=== PATIENT | male | born 1950 | race Caucasian/White ===

== ENCOUNTER → 2018-08-19 16:00 | Outpatient (CLI) | payer OTHER, SELFPAY ==
[2018-08-19 17:15] LABS: PSA,Total - Annual Screen 1.74 ng/mL (0.00-4.00)
== END ==
PROVIDERS: Family Provider Family Medicine; PCP Family Medicine; Referring Provider Urology; Visit Provider Urology
DX: Z12.5 Encounter for screening for malignant neoplasm of prostate (principal)
CPT/HCPCS: 36415; 84153; G0103

== ENCOUNTER → 2018-08-19 19:42 | Outpatient (CLI) | payer OTHER, SELFPAY ==
--- NOTE | 2018-08-19 | CYSPIN_PTH ---
PATIENT: ANGELA RODRIGUES LOC: [facility] U#:[id number] AGE/SX: 75/M ROOM: RE08/19/[address]: Dr. Juan Shultz MD : 1950 BED: DIS: SPEC #: [id number] RECD: 08/20/18 10:53 STATUS: ELIDA RERichardson #: [id number] VALENTIN: 08/19/18 00:[address]: Juan Shultz DEPT: CYTOLOGY RECD BY: Lars Knott ENTERED: 08/20/18 10:54 SP TYPE: CYSPIN FL OTHR DR: Dr. Bereket Morel MD Tissues: Urine Procedures: Pap Stain (control) Special Stain Group II Cytospin Fluid HEADER OPERATION: Not noted PRE-OP DIAGNOSIS: Bladder cancer TISSUE SUBMITTED: Urine for cytology DIAGNOSIS CYTOLOGY Urine for cytology (cytospin): Negative for malignant cells. Acute inflammation. SJ:cruz 08/21/18 COMMENT Clinical correlation and appropriate follow up are necessary. CYTOLOGY STUDY Slides are reviewed. CYTOLOGY GROSS Received is 80 ml of yellow clear fluid labeled with the patient's name and and designated per the requisition as urine. Submitted for cytology preparation. 08/20/18 TC:2 CPT: 06517
[2018-08-19 19:45] LABS: Cytology, Body Fluid / CSF SEE PATHOLOGY REPORT
== END ==
PROVIDERS: Family Provider Family Medicine; PCP Family Medicine; Referring Provider Urology; Visit Provider Urology
DX: C67.9 Malignant neoplasm of bladder, unspecified (principal)
CPT/HCPCS: 88108; 88313

== ENCOUNTER → 2019-02-10 | Outpatient (CLI) | payer OTHER, SELFPAY ==
--- NOTE | 2019-02-10 09:09 | RAD_ITS ---
STUDY: X-RAY - LUMBOSACRAL SPINE REASON FOR EXAM: Male, 69 years old. Lots of pain in lower back radiating down into the left leg off and on for years. Currently getting worse. TECHNIQUE: 7 view(s) of the lumbosacral spine were obtained. COMPARISON: April 12, 2010. FINDINGS: Normal lumbar lordosis. There is no substantial scoliosis. No lysis is identified on bilateral oblique projections. There is minimal diffuse spondylosis, most prominently involving L5. There is moderate to severe L5-S1 degenerative disc disease. There is no change of osseous alignment during flexion or extension versus neutral. Multifocal calcified plaque outlines the abdominal aorta without delineation of an aneurysm. Normal visualized soft tissue structures. RAD/L/S Spine Comp/w Bending Views IMPRESSION: No plain film evident acute osseous abnormality. No lysis. No listhesis. No substantial scoliosis. In fact, normal alignment. Spondylosis and degenerative disc disease as above. No alignment change during flexion or extension versus neutral. Atherosclerotic peripheral vascular disease. Electronically Signed: Pablito Singh MD at 14:51 EDT , Service support ,
== END | disposition home or self-care (01) ==
LOC: MTRAD 08:53
PROVIDERS: Family Provider Family Medicine; PCP Family Medicine
DX: M54.5 Low back pain (principal)
CPT/HCPCS: 72114

== ENCOUNTER → 2019-03-13 | Outpatient (CLI) | payer OTHER, SELFPAY ==
--- NOTE | 2019-03-13 15:21 | MRI_ITS ---
STUDY: MRI LUMBAR SPINE WITHOUT CONTRAST REASON FOR EXAM: Male, 69 years old. Radiculopathy. Leg pain. TECHNIQUE: Standardized fat and water weighted pulse sequences were obtained in the sagittal and axial planes. COMPARISON: X-ray dated February 10, 2019. FINDINGS: Lumbar lordosis preserved. No significant scoliosis. Conus medullaris terminates normally at the L1-2 level. T11-12: Mild/moderate endplate spondylosis with Modic changes. T12-L1: Normal endplates. Normal disc height, hydration and morphology. Normal bilateral facet joints. Normal central canal and bilateral lateral recesses. Normal bilateral intervertebral neural foramina. L1-2: Normal endplates. Desiccation. Normal bilateral facet joints. Normal central canal and bilateral lateral recesses. Normal bilateral intervertebral neural foramina. L2-3: Normal endplates. Disc bulge without central canal narrowing. Facet joint arthrosis. Normal central canal and bilateral lateral recesses. Normal bilateral intervertebral neural foramina. L3-4: Normal endplates. Disc bulge with mild central narrowing. Facet joint arthrosis. Normal bilateral lateral recesses. Neural foraminal narrowing without impingement. Posterior epidural fat contributes to central canal narrowing. L4-5: Normal endplates. Disc bulge with mild central canal narrowing. Facet joint arthrosis. Normal bilateral lateral recesses. Neural foraminal narrowing without impingement. Posterior perineural fat contributes to central canal narrowing. L5-S1: Moderate endplate spondylosis with Modic changes. Shallow disc bulge/osteophyte complex without central canal narrowing. Facet joint arthrosis. Normal central canal and bilateral lateral recesses. Neural foraminal narrowing with early nerve root contact. Sacrum intact. No acute fracture line. No dislocation. No cortical destruction. Mild paraspinal muscle atrophy. Normal aorta. Normal retroperitoneum. MRI/Spine Lumbar (Routine) IMPRESSION: Multilevel intervertebral disc disease with mild central narrowing at L3-4 and L4-5 Multilevel neural femoral narrowing with early contact of the L5 exiting nerve roots Multilevel facet joint arthrosis Endplate spondylosis at T11-12 and L5-S1 Electronically Signed: Bereket Reeves DO at 8:17 EDT Tel , Service support ,
== END | disposition home or self-care (01) ==
LOC: MRI 15:14
PROVIDERS: Family Provider Family Medicine; PCP Family Medicine
DX: M47.27 Other spondylosis with radiculopathy, lumbosacral region (principal)
CPT/HCPCS: 72148

== ENCOUNTER → 2019-06-02 | Outpatient (CLI) | payer OTHER, SELFPAY ==
--- NOTE | 2019-06-02 17:17 | RAD_ITS ---
STUDY: X-RAY CHEST REASON FOR EXAM: Male, 69 years old. Hypertension TECHNIQUE: PA and lateral COMPARISON: None. FINDINGS: Lungs are mildly hyperinflated but clear.. There is no demonstrated pleural abnormality. Normal size heart. Normal mediastinum and tien. Normal visualized pulmonary arteries. Mildly calcified aortic arch and descending thoracic aorta. Dorsal spine demonstrates moderate spondylosis Normal visualized ribs, clavicles, and shoulders. There is no demonstrated abnormality of the visualized soft tissue structures of the upper abdomen. RAD/Chest PA and Lateral IMPRESSION: COPD. No acute disease Electronically Signed: Vito Yousif MD at 22:01 EDT , Service support ,
== END | disposition home or self-care (01) ==
LOC: MTRAD 17:15
PROVIDERS: Family Provider Family Medicine; PCP Family Medicine; Referring Provider Nurse Practitioner Family; Visit Provider Nurse Practitioner Family
DX: Z01.818 Encounter for other preprocedural examination (principal)
CPT/HCPCS: 71046

== ENCOUNTER → 2019-06-03 | Outpatient (CLI) | payer OTHER, SELFPAY ==
[2019-06-03 12:26] LABS: Absolute Lymphocyte Count 2.51 X10^3/uL (0.83-4.51); Absolute Neutrophil Count 3.3 X10^3/uL (2.0-7.7); Basophil# 0.08 X10^3/uL; Basophil% 1.2 % (0-1); Eosinophil# 0.14 X10^3/uL; Eosinophils% 2.2 % (0-5); Hematocrit 44.2 % (40-54); Hemoglobin 14.6 g/dL (13.0-16.5); Lymphocyte # 2.51 X10^3/ul (4.0); Lymphocyte % 38.9 % (19-41); Mean Corpuscular Hgb 29.4 pg (27.0-32.0); Mean Corpuscular Volume 88.9 fL (80-94); Mean Platelet Vol. 10.8 fl (6.2-12.0); Monocyte# 0.43 X10^3/uL; Monocyte% 6.7 % (0-10); NRBC Flagged by Analyzer 0 % (0-5); Neutrophil # 3.27 X10^3/uL (2.7-7.7); Neutrophil % 50.7 % (47-70); Platelet Count 288 K/mm3 (150-450); RBC Distribution Width CV 12.9 % (11.6-14.6); RBC Distribution Width SD 41.9 fl (35.1-43.9); Red Blood Count 4.97 M/mm3 (4.6-6.2); White Blood Count 6.5 K/mm3 (4.4-11.0)
[2019-06-03 12:30] LABS: Prothrombin Time (Protime)PT. 13.2 SECONDS (11.7-14.9)
[2019-06-03 12:31] LABS: Partial Thromboplast Time 32.1 Seconds (24.1-36.2)
[2019-06-03 12:44] LABS: ALB/GLOB Ratio 0.8 RATIO (0.9-2.4); AST(SGOT) 19 U/L (15-37); Alanine Aminotransfer ALT/SGPT 26 U/L (16-61); Albumin, Serum 3.7 g/dL (3.2-5.0); Alkaline Phosphatase 62 U/L (45-117); Anion Gap 6 (5-15); BUN 17 mg/dL (7-18); BUN/Creat Ratio 16.8 RATIO (10-20); Calcium,Total 9.3 mg/dL (8.5-10.1); Chloride 103 mmol/L (98-107); Creatinine, Serum 1.01 mg/dL (0.70-1.30); EST Glomerular Filtration Rate 78 mL/min (>60); Est Glom Filt Rate - Afr Amer 95 mL/min (>60); Globulin 4.6 g/dL (2.2-4.2); Glucose 104 mg/dL (74-106); Potassium 3.8 mmol/L (3.5-5.1); Protein, Total 8.3 g/dL (6.4-8.2); Sodium Level 136 mmol/L (136-145)
== END | disposition home or self-care (01) ==
LOC: MTLAB 09:47
PROVIDERS: Family Provider Family Medicine; PCP Family Medicine; Referring Provider Nurse Practitioner Family; Visit Provider Nurse Practitioner Family
DX: Z01.818 Encounter for other preprocedural examination (principal)
CPT/HCPCS: 36415; 80053; 85025; 85610; 85730; 87077; 87081

== ENCOUNTER 2019-06-18 05:18 | Emergency (ER) | payer OTHER, SELFPAY ==
[2019-06-18 05:19] VITALS: BP 113/103; PULSE 62; RESP 18; TEMP 36.6; O2SAT 96; BMI 30.4
[2019-06-18 05:28] VITALS: BP 113/103; PULSE 62; RESP 18; TEMP 36.6; O2SAT 96
[2019-06-18 05:37] VITALS: BP 141/78; PULSE 65; O2SAT 97
--- NOTE | 2019-06-18 05:37 | ED.RN ---
pt unable to get undressed as he needs his t-shirt stay inbetween his surgical incision and his waist band. t-shirt doesn't have any logos or sparkly gems.
--- NOTE | 2019-06-18 05:41 | RAD_ITS ---
STUDY: X-RAY CHEST REASON FOR EXAM: Male, 69 years old. Chills, recent lumbar discectomy on . TECHNIQUE: Single AP portable view of the chest. COMPARISON: 06/02/2019 FINDINGS: There are areas of hyperinflation. There is no focal parenchymal abnormality. There is no demonstrated pleural abnormality. Normal size heart. Normal mediastinum and tien. Normal visualized pulmonary arteries. Normal visualized aortic arch and descending thoracic aorta. There are diffuse degenerative changes of the visualized thoracic spine. Normal visualized ribs, clavicles, and shoulders. There is no demonstrated abnormality of the visualized soft tissue structures of the upper abdomen. RAD/Chest 1 View (Portable) IMPRESSION: Component of COPD. No pulmonary edema, congestive heart failure or confluent pneumonia. Electronically Signed: Cheyenne Ross MD at 6:18 EDT , Service support ,
--- NOTE | 2019-06-18 05:42 | ED.DCSUM_ITS ---
History of Present Illness Chief Complaint: Fever Narrative: Patient is a 69-year-old male who presents with fever and chills and low body temperature this morning. 5 days ago he had a discectomy which was done at [place]. Yesterday he had a fever of 100.6. This morning his noted that he was sweating and his shirt was soaked. She checked his temperature and it was 95.5. Patient complains of dysuria which she attributes to his recent surgery. He denies chest pain, shortness of breath, cough, congestion, rashes. His pain from surgery is well controlled. He is not been needing to take any pain medication since Sunday evening. He denies any redness or drainage from the wound. Past Medical History - Allergies and Home Meds Allergies/Adverse Reactions: Allergies Corticosteroids (Glucocorticoids) Allergy (Verified 06/18/19 05:21) Other FLUSHING, ELEVATED BLOOD PRESSURE oxycodone HCl [From Percocet] Allergy (Verified 06/18/19 05:21) Other HALLUCINATIONS prednisone Allergy (Verified 06/18/19 05:21) Other FLUSHING, ELEVATED BLOOD PRESSURE thimerosal Allergy (Verified 06/18/19 05:21) Other MUSCLE ACHES azithromycin Adverse Reaction (Verified 06/18/19 05:21) Other B.M. ISSUES chlorhexidine Adverse Reaction (Verified 06/18/19 05:21) SKIN FELT LIKE IT WAS BURNING clindamycin Adverse Reaction (Verified 06/18/19 05:21) Other SEVERE STOMACH CRAMPS, BACK PAIN codeine Adverse Reaction (Verified 06/18/19 05:21) Other IMPAIRED MEMORY erythromycin base [Erythromycin Base] Adverse Reaction (Verified 06/18/19 05:21) Other SEVERE STOMACH CRAMPS gabapentin [From Neurontin] Adverse Reaction (Verified 06/18/19 05:21) Other INTESTINAL CRAMPS naproxen Adverse Reaction (Verified 06/18/19 05:21) Other UPSET STOMACH, HEART BURN, EAR RINGING sulfamethoxazole [From Septra] Adverse Reaction (Verified 06/18/19 05:21) Other STOMACH CRAMPS trimethoprim [From Septra] Adverse Reaction (Verified 06/18/19 05:21) Other STOMACH CRAMPS Primary Care Physician: Bereket Morel MD [Primary Care Provider] - Past Medical History: - - Hypertension Surgical History: - - Discectomy Smoking Status: Former smoker Review of Systems All systems negative except as indicated General: Reports: Chills, Fever, Sweats Cardiovascular: Denies: Chest pain Respiratory: Denies: Dyspnea, Cough Gastrointestinal: Denies: Abdominal pain, Nausea, Vomiting, Diarrhea Genitourinary: Reports: Dysuria Physical Exam Vital Signs/Narrative: Vital Signs Temp Pulse Resp BP Pulse Ox 06/18/19 05:37 65 141/78 H 97 06/18/19 05:28 97.8 F 62 18 113/103 H 96 06/18/19 05:19 97.8 F 62 18 113/103 H 96 General: Well nourished Head: Normocephalic Eyes: EOMI ENT: Moist mucous membranes Neck: Supple Cardiovascular: Regular rate, Regular rhythm Respiratory: No distress, CTA bilaterally Abdomen: Soft, Nontender Back: - - Back incision clean dry and intact no erythema no drainage Skin: Normal color Neurological: Alert Psychological: Normal affect Diagnostic/Tx/Re-eval Impressions Chest X-Ray 06/18/19 05:41 IMPRESSION: Component of COPD. No pulmonary edema, congestive heart failure or confluent pneumonia. Electronically Signed: Cheyenne Ross MD at 6:18 EDT , Service support , 06/18/19 05:41 Chest 1 View (Portable) [RAD] Stat Laboratory Results 06/18/19 06/18/19 06/18/19 05:47 05:47 05:48 WBC 4.7 RBC 4.69 Hgb 13.6 Hct 41.4 MCV 88.3 MCH 29.0 MCHC 32.9 RDW Std Deviation 41.1 RDW Coeff of Marjan 12.9 Plt Count 280 MPV 9.7 Immature Gran % (Auto) 0.200 Neut % (Auto) 45.0 L Lymph % (Auto) 34.3 [place] % (Auto) 15.8 H Eos % (Auto) 3.6 Baso % (Auto) 1.1 H Absolute Neuts (auto) 2.1 Absolute Lymphs (auto) 1.61 Nucleated RBC % 0 ESR 38 H Sodium Potassium Chloride Carbon Dioxide Anion Gap BUN Creatinine Estim Creat Clear Calc Est GFR (MDRD) Af Amer Est GFR (MDRD) Non-Af BUN/Creatinine Ratio Glucose Calcium C-React Prot Ext Range 19.70 H Urine Color Urine Clarity Urine pH Ur Specific [place] Urine Protein Urine Glucose (UA) Urine Ketones Urine Occult Blood Urine Nitrite Urine Bilirubin Urine Urobilinogen Ur Leukocyte Esterase Urine RBC Urine WBC Ur Squamous Epith Cells Urine Bacteria Urine Mucus 06/18/19 06/18/19 05:48 06:15 WBC RBC Hgb Hct MCV MCH MCHC RDW Std Deviation RDW Coeff of Marjan Plt Count MPV Immature Gran % (Auto) Neut % (Auto) Lymph % (Auto) [place] % (Auto) Eos % (Auto) Baso % (Auto) Absolute Neuts (auto) Absolute Lymphs (auto) Nucleated RBC % ESR Sodium 140 Potassium 4.2 Chloride 105 Carbon Dioxide 29.0 Anion Gap 6 BUN 13 Creatinine 0.90 Estim Creat Clear Calc 84.83 Est GFR (MDRD) Af Amer 108 Est GFR (MDRD) Non-Af 89 BUN/Creatinine Ratio 14.4 Glucose 87 Calcium 9.2 C-React Prot Ext Range Urine Color Yellow Urine Clarity Clear Urine pH 6.5 Ur Specific [place] 1.010 Urine Protein Negative Urine Glucose (UA) Normal Urine Ketones Negative Urine Occult Blood Negative Urine Nitrite Negative Urine Bilirubin Negative Urine Urobilinogen Normal Ur Leukocyte Esterase Negative Urine RBC 0 SEEN Urine WBC 0 SEEN Ur Squamous Epith Cells 0 SEEN Urine Bacteria 0 SEEN Urine Mucus 0 SEEN - Medical Decision Making Patient underwent work-up as above. I initially just ordered CBC BMP chest x- ray urinalysis. This did not provide a clear explanation for the patient's fever. I added on ESR and CRP. ESR returned to 38. CRP returned at 19.7. I did speak to the patient's surgeon. Clinically the patient is well-appearing with normal vitals resting comfortably. His pain is well controlled. He does not have radicular symptoms. He has not required pain medication a couple of days. Therefore we did feel outpatient follow-up appropriate and patient was advised to keep his scheduled appointment but keep in contact with his surgeon especially regarding any new or worsening symptoms or to return to the emergency department for reevaluation. Patient and family are comfortable with this plan and the patient was discharged. ED Disposition - Plan for ED Patient: Disposition: Home or Assisted Living Diagnosis: Fever Instructions: FEBRILE ILLNESS, Uncertain Cause (Adult) Referrals: Bereket Morel MD [Primary Care Provider] - Additional Instructions: Follow up with your spinal surgeon. Contact your surgeon or return to the ER for new or worsening symptoms.
[2019-06-18 05:57] LABS: Absolute Lymphocyte Count 1.61 X10^3/uL (0.83-4.51); Absolute Neutrophil Count 2.1 X10^3/uL (2.0-7.7); Basophil# 0.05 X10^3/uL; Basophil% 1.1 % (0-1); Eosinophil# 0.17 X10^3/uL; Eosinophils% 3.6 % (0-5); Hematocrit 41.4 % (40-54); Hemoglobin 13.6 g/dL (13.0-16.5); Lymphocyte # 1.61 X10^3/ul (4.0); Lymphocyte % 34.3 % (19-41); Mean Corp Hgb Conc 32.9 g/dL (32-36); Mean Corpuscular Volume 88.3 fL (80-94); Mean Platelet Vol. 9.7 fl (6.2-12.0); Monocyte# 0.74 X10^3/uL; Monocyte% 15.8 % (0-10); NRBC Flagged by Analyzer 0 % (0-5); Neutrophil # 2.11 X10^3/uL (2.7-7.7); Platelet Count 280 K/mm3 (150-450); RBC Distribution Width CV 12.9 % (11.6-14.6); RBC Distribution Width SD 41.1 fl (35.1-43.9); Red Blood Count 4.69 M/mm3 (4.6-6.2); White Blood Count 4.7 K/mm3 (4.4-11.0)
[2019-06-18 06:10] LABS: Anion Gap 6 (5-15); BUN 13 mg/dL (7-18); BUN/Creat Ratio 14.4 RATIO (10-20); Calcium,Total 9.2 mg/dL (8.5-10.1); Chloride 105 mmol/L (98-107); EST Glomerular Filtration Rate 89 mL/min (>60); Est Glom Filt Rate - Afr Amer 108 mL/min (>60); Estimated Creatinine Clearance 84.83 ml/min; Glucose 87 mg/dL (74-106); Potassium 4.2 mmol/L (3.5-5.1); Sodium Level 140 mmol/L (136-145)
[2019-06-18 06:19] LABS: Bacteria 0 SEEN /hpf (None Seen); Mucous, Urine 0 SEEN /hpf (<or=2+); Red Blood Cells-Urine 0 SEEN /hpf (0-5); Squamous Epithelial Cells - UA 0 SEEN /hpf (0-5); White Blood Cells 0 SEEN /hpf (0-5)
[2019-06-18 06:20] LABS: Color, Urine Yellow (Yellow); Glucose, Dipstick Normal (Normal); Ketone-Dipstick Negative (Negative); Leukocyte Esterase-Dipstick Negative /ul (Negative); Nitrite-Dipstick Negative (Negative); Occult Blood-Urine Negative /ul (Negative); Protein-Dipstick Negative (Negative); Urine Bilirubin Dipstick Negative (Negative); Urine Clarity Clear (Clear); Urine Urobilinogen Normal (Normal); Urine pH 6.5 (5.0 - 8.0)
--- NOTE | 2019-06-18 06:29 | NURSING ---
PAGE DR GROSS [phone]
[2019-06-18 06:32] VITALS: BP 156/65; PULSE 85; RESP 18; TEMP 36.6; O2SAT 96
[2019-06-18 06:41] LABS: Erythrocyte Sedimentation Rate 38 mm/hr (0-20)
[2019-06-18 07:04] VITALS: BP 145/72; PULSE 64; RESP 16; O2SAT 94
== END 2019-06-18 07:05 | disposition home or self-care (01) ==
PROVIDERS: Emergency Provider Emergency Medicine; Family Provider Family Medicine; PCP Family Medicine
DX: R50.9 Fever, unspecified (principal); R30.0 Dysuria; Z98.890 Other specified postprocedural states; I10 Essential (primary) hypertension; Z79.899 Other long term (current) drug therapy; Z87.891 Personal history of nicotine dependence
CPT/HCPCS: 71045; 80048; 81001; 85025; 85652; 86140; 99283; A4216

== ENCOUNTER → 2019-08-26 15:43 | Outpatient (CLI) | payer OTHER, SELFPAY ==
--- NOTE | 2019-08-26 15:30 | CYSPIN_PTH ---
PATIENT: ANGELA RODRIGUES LOC: [facility] U#:[id number] AGE/SX: 75/M ROOM: RE08/26/[address]: Dr. Juan Shultz MD : 1950 BED: DIS: SPEC #: [id number] RECD: 08/27/19 09:31 STATUS: ELIDA NEL #: [id number] VALENTIN: 08/26/19 15:[address]: Juan Shultz DEPT: CYTOLOGY RECD BY: Martin Mayfield ENTERED: 08/27/19 09:31 SP TYPE: CYSPIN FL OTHR DR: Dr. Bereket Morel MD Tissues: Urine Procedures: Pap Stain (control) Special Stain Group II Cytospin Fluid HEADER OPERATION: Not noted PRE-OP DIAGNOSIS: Malignant neoplasm of bladder/prostate TISSUE SUBMITTED: Urine for cytology DIAGNOSIS CYTOLOGY Urine for cytology (cytospin): Atypical urothelial cells present. AM:cruz 08/28/19 COMMENT Similar cytologic findings may seen in low grade urothelial carcinoma, instrumentation and inflammation of the urinary bladder. If a lesion is present, a biopsy is recommended if clinically indicated. Case has been reviewed in consultation with Dr. Argueta who concurs with the above diagnosis. IDC:SJ CYTOLOGY STUDY Slides are reviewed. CYTOLOGY GROSS Received is 75 ml of clear yellow fluid labeled with the patient's name and and designated per the requisition as urine. Submitted for cytology preparation. / cruz 08/27/19 TC:? CPT: 09938
[2019-08-26 17:58] LABS: PSA,Total - Annual Screen 2.26 ng/mL (0.00-4.00)
[2019-08-26 18:13] LABS: Cytology, Body Fluid / CSF SEE PATHOLOGY REPORT
== END ==
PROVIDERS: Family Provider Family Medicine; PCP Family Medicine; Referring Provider Urology; Visit Provider Urology
DX: Z85.51 Personal history of malignant neoplasm of bladder (principal)
CPT/HCPCS: 36415; 84153; 88108; 88313; G0103

== ENCOUNTER 2019-09-10 12:00 | Day surgery (SDC) | payer OTHER, SELFPAY ==
[2019-09-10] VITALS (8 sets, daily range): BP systolic 110–145; BP diastolic 69–109; PULSE 78–92; RESP 16; TEMP 36.2–36.8; O2SAT 92–99; BMI 30.8
[2019-09-10] MEDS: Lactated Ringers 1,000 ML 100 ML IV (12:48)
[2019-09-10] MEDS: Cefazolin 2 GM in 0.9% Normal Saline 100 ML IV (13:20)
[2019-09-10] MEDS: Lidocaine Jelly 2% 20 ML Syringe (URO-JET) 20 APPLIC (13:25)
--- NOTE | 2019-09-10 13:45 | DCINST_ITS ---
- Discharge Diagnoses Current Active Problems: History of bladder cancer Reason(s) for Visit for Discharge Instructions: Cystoscopy biopsy and fulguration You will use the following diet at home:: No restrictions, Regular Discharge Activity: Return to Normal Activity Instructions: Transurethral Bladder Biopsy Allergies/Adverse Reactions: Allergies Corticosteroids (Glucocorticoids) Allergy (Verified 09/10/19 12:35) Other FLUSHING, ELEVATED BLOOD PRESSURE oxycodone HCl [From Percocet] Allergy (Verified 09/10/19 12:35) Other HALLUCINATIONS prednisone Allergy (Verified 09/10/19 12:35) Other FLUSHING, ELEVATED BLOOD PRESSURE thimerosal Allergy (Verified 09/10/19 12:35) Other MUSCLE ACHES azithromycin Adverse Reaction (Verified 09/10/19 12:35) Other B.M. ISSUES chlorhexidine Adverse Reaction (Verified 09/10/19 12:35) SKIN FELT LIKE IT WAS BURNING clindamycin Adverse Reaction (Verified 09/10/19 12:35) Other SEVERE STOMACH CRAMPS, BACK PAIN codeine Adverse Reaction (Verified 09/10/19 12:35) Other IMPAIRED MEMORY erythromycin base [Erythromycin Base] Adverse Reaction (Verified 09/10/19 12:35) Other SEVERE STOMACH CRAMPS gabapentin [From Neurontin] Adverse Reaction (Verified 09/10/19 12:35) Other INTESTINAL CRAMPS naproxen Adverse Reaction (Verified 09/10/19 12:35) Other UPSET STOMACH, HEART BURN, EAR RINGING sulfamethoxazole [From Septra] Adverse Reaction (Verified 09/10/19 12:35) Other STOMACH CRAMPS trimethoprim [From Septra] Adverse Reaction (Verified 09/10/19 12:35) Other STOMACH CRAMPS Medications to take at Discharge Amlodipine [Norvasc] 5 mg PO DAILY 06/18/19 Cholecalciferol (Vitamin D3) [Vitamin D3] 5,000 unit PO DAILY 06/18/19 Ibuprofen [Advil] 600 mg PO TID PRN PRN 06/18/19 Losartan Potassium [Cozaar] 100 mg PO DAILY 06/18/19 Omeprazole Magnesium [Prilosec Otc] 20 mg PO DAILY 06/18/19 Potassium Citrate 1,080 mg MC DAILY 06/18/19 Ubidecarenone [Co Q-10] 100 mg PO DAILY 06/18/19 cycloBENZAPRine HCl [Flexeril] 10 mg PO TID PRN PRN 06/18/19 Primary Care Physician: Bereket Morel MD [Primary Care Provider] - Test Results: Test results from this visit will be discussed in further detail at your follow- up appointment, if applicable. Please Follow Up With: Juan Shultz MD When: 2 weeks
--- NOTE | 2019-09-10 13:47 | PCM.OPRPT ---
Report of Operation Date of Procedure: 09/10/19 Pre-Operative Diagnosis: History of bladder cancer bladder lesion Post-Operative Diagnosis: Bladder lesion Surgery/Procedure Performed:: Cystoscopy, bladder biopsy and fulguration of site Description of Surgical Findings:: 69-year-old male with history of bladder cancer was taken back to the operating room after smooth induction of anesthesia he was placed supine on the table we left him supine we used a flexible cystoscope we went inside the urethra with a flexible cystoscope the entire length urethra is normal he did have a slightly enlarged prostate with obstruction the bladder was fairly distended inside the bladder checked the entire bladder the right and left ureteral orifice were open and clear the left ureteral orifice had a little bit of scar tissue around it from prior bladder tumor there is a scar tissue in the right trigone area and there was a little tiny lesion in the lateral aspect of the trigone area a biopsy of this was taken a very small biopsy and then I cauterized the site. We then drained the bladder patient anesthetic was reversed taken back to PACU in good condition. Type of Anesthesia:: General Drains: none - Admit VTE Documentation VTE Present on Admission: No VTE Mechan Device Prophylaxis: SCD's
--- NOTE | 2019-09-10 13:55 | BLA_PTH ---
PATIENT: ANGELA RODRIGUES [place]: [facility] [place][id number] AGE/SX: 69/M ROOM: RE09/10/[address]: Dr. Juan Shultz MD : 1950 BED: DIS: 09/10/2019 SPEC #: [id number] RECD: 09/10/19 16:08 STATUS: ELIDA NEL #: [id number] VALENTIN: 09/10/19 13:[address]: Juan Shultz DEPT: SURGICAL PATHOLOGY RECD BY: Martin Mayfield ENTERED: 09/11/19 11:28 SP TYPE: BLADDER BX OTHR DR: Dr. Bereket Morel MD Tissues: Urinary bladder, NOS Procedures: Surgery Specimen Level IV HEADER OPERATION: Cystoscopy, bladder biopsy with fulguration PRE-OP DIAGNOSIS: Bladder cancer, atypical cytology TISSUE SUBMITTED: Bladder biopsy MICROSCOPIC DIAGNOSIS Bladder biopsy: A fragment of urothelial mucosa with mild epithelial hyperplasia and atypia. Negative for malignancy. SJ:curz 09/15/19 COMMENT Clinical correlation and appropriate follow up are necessary. Please make reference to previous specimen ([id number]) urine for cytology with diagnosis of atypical urothelial cells present. MICROSCOPIC DESCRIPTION Slides are reviewed. GROSS DESCRIPTION Received in fixative is one container labeled with the patient's name and designated bladder biopsy. The specimen is extremely tiny. The specimen consists of a minute fragment of lilly soft tissue measuring <0.1 cm in greatest dimension. The entire specimen is submitted in one cassette. / SUNNY:cruz 09/11/19 TC:5 CPT: 26293
== END 2019-09-10 14:59 | disposition home or self-care (01) ==
LOC: SDC 12:00 → AC 12:03
PROVIDERS: Family Provider Family Medicine; PCP Family Medicine; Referring Provider Urology; Visit Provider Urology
PROC: 0TJB8ZZ Inspection of Bladder, Via Natural or Artificial Opening Endoscopic (ICD-10-PCS; CPT 52000; principal; 2019-09-10 13:45)
DX: N32.9 Bladder disorder, unspecified (principal); Z85.51 Personal history of malignant neoplasm of bladder; I10 Essential (primary) hypertension; M19.90 Unspecified osteoarthritis, unspecified site; G47.30 Sleep apnea, unspecified; K58.9 Irritable bowel syndrome, unspecified; K21.9 Gastro-esophageal reflux disease without esophagitis; Z79.899 Other long term (current) drug therapy; Z87.891 Personal history of nicotine dependence
CPT/HCPCS: 52204; 88305; J7120; J2405

== ENCOUNTER → 2019-12-19 09:16 | Outpatient (CLI) | payer OTHER, SELFPAY ==
[2019-09-10 12:36] VITALS: BMI 30.8
[2019-12-19 09:45] LABS: Absolute Lymphocyte Count 2.23 X10^3/uL (0.83-4.51); Absolute Neutrophil Count 2.9 X10^3/uL (2.0-7.7); Basophil# 0.06 X10^3/uL; Eosinophil# 0.18 X10^3/uL; Hematocrit 43.6 % (40-54); Hemoglobin 14.4 g/dL (13.0-16.5); Lymphocyte # 2.23 X10^3/ul (4.0); Lymphocyte % 37.7 % (19-41); Mean Corpuscular Hgb 28.3 pg (27.0-32.0); Mean Corpuscular Volume 85.8 fL (80-94); Mean Platelet Vol. 9.8 fl (6.2-12.0); Monocyte% 8.5 % (0-10); NRBC Flagged by Analyzer 0 % (0-5); Neutrophil # 2.92 X10^3/uL (2.7-7.7); Neutrophil % 49.5 % (47-70); Platelet Count 284 K/mm3 (150-450); RBC Distribution Width CV 12.5 % (11.6-14.6); RBC Distribution Width SD 39.1 fl (35.1-43.9); Red Blood Count 5.08 M/mm3 (4.6-6.2); White Blood Count 5.9 K/mm3 (4.4-11.0)
[2019-12-19 10:25] LABS: ALB/GLOB Ratio 0.8 RATIO (0.9-2.4); AST(SGOT) 21 U/L (15-37); Alanine Aminotransfer ALT/SGPT 29 U/L (16-61); Albumin, Serum 3.6 g/dL (3.2-5.0); Alkaline Phosphatase 54 U/L (45-117); Anion Gap 2 (5-15); BUN 18 mg/dL (7-18); BUN/Creat Ratio 18.9 RATIO (10-20); Calcium,Total 9.4 mg/dL (8.5-10.1); Chloride 106 mmol/L (98-107); Cholesterol 183 mg/dL (200); Creatinine, Serum 0.95 mg/dL (0.70-1.30); EST Glomerular Filtration Rate 84 mL/min (>60); Est Glom Filt Rate - Afr Amer 101 mL/min (>60); Globulin 4.5 g/dL (2.2-4.2); Glucose 91 mg/dL (74-106); High Density Lipoprotein 49 mg/dL; Potassium 4.2 mmol/L (3.5-5.1); Protein, Total 8.1 g/dL (6.4-8.2); Sodium Level 137 mmol/L (136-145); Thyroid Stim Hormone (TSH) 1.29 uIU/mL (0.358-3.74); Triglycerides 69 mg/dL; Very Low Density Lipoprotein 14 mg/dL (5-40)
== END ==
PROVIDERS: PCP Family Medicine; Referring Provider Family Medicine; Visit Provider Family Medicine
DX: M06.4 Inflammatory polyarthropathy (principal); E78.6 Lipoprotein deficiency; E55.9 Vitamin D deficiency, unspecified
CPT/HCPCS: 36415; 80053; 80061; 82306; 84443; 85025

== ENCOUNTER → 2020-04-12 16:14 | Outpatient (CLI) | payer OTHER, SELFPAY ==
[2019-09-10 12:36] VITALS: BMI 30.8
--- NOTE | 2020-04-12 16:16 | RAD_ITS ---
STUDY: X-RAY - LEFT KNEE REASON FOR EXAM: Male, 70 years old. CHRONIC LEG PAIN, HAD SURGERY ON LUMBAR SPINE LAST YEAR TO RELIEVE LEFT LEG NERVE PAIN, BUT PAIN WORSENING NOW TECHNIQUE: 4 view(s) of the knee. COMPARISON: None. FINDINGS: Normal visualized distal femur. Normal visualized proximal tibia and fibula. Normal proximal tibiofibular articulation. There is moderate degenerative arthrosis of the medial femorotibial compartment with moderate joint space narrowing. Normal lateral femorotibial compartment. There is mild degenerative arthrosis of the patellofemoral articulation. There is a soft tissue prominence in the suprapatellar region suggesting a small volume joint effusion. The soft tissue structures are unremarkable. RAD/Knee 4 or More Views IMPRESSION: Mild to moderate arthrosis with small suprapatellar effusion. No demonstrated fracture or suspicious osseous lesion Electronically Signed: Rajendra Cheung MD at 8:23 EDT , Service support ,
--- NOTE | 2020-04-12 16:16 | RAD_ITS ---
STUDY: X-RAY - PELVIS AND LEFT HIP REASON FOR EXAM: Male, 70 years old. CHRONIC LEG PAIN, HAD SURGERY ON LUMBAR SPINE LAST YEAR TO RELIEVE LEFT LEG NERVE PAIN, BUT PAIN WORSENING NOW TECHNIQUE: 3 views of the pelvis and hip. COMPARISON: None. FINDINGS: There is a non-specific bowel gas pattern. Normal visualized soft tissue structures. Normal bilateral iliac wings, sacroiliac joints and visualized sacrum. Normal bilateral superior and inferior pubic rami. Normal pubic symphysis. Normal bilateral ischial tuberosities. Normal visualized femoral head. Normal acetabulum. Normal hip joint. RAD/HIP, UNI W/ Pelvis 2-3 Views IMPRESSION: Normal x-ray examination of the pelvis and hip. Electronically Signed: Rajendra Cheung MD at 8:23 EDT , Service support ,
== END ==
PROVIDERS: PCP Family Medicine; Referring Provider Family Medicine; Visit Provider Family Medicine
DX: M25.562 Pain in left knee (principal)
CPT/HCPCS: 73502; 73564

== ENCOUNTER → 2020-09-20 | Outpatient (CLI) | payer OTHER, SELFPAY ==
[2019-09-10 12:36] VITALS: BMI 30.8
[2020-09-20 17:46] LABS: Cytology, Body Fluid / CSF SEE PATHOLOGY REPORT
--- NOTE | 2020-09-21 | CYSPIN_PTH ---
PATIENT: ANGELA RODRIGUES [facility] U#:[id number] AGE/SX: 70/M ROOM: RE09/20/[address]: Dr. Juan Shultz MD : 1950 BED: DIS: 09/20/2020 SPEC #: [id number] RECD: 09/21/20 08:32 STATUS: ELIDA NEL #: [id number] VALENTIN: 09/21/20 00:[address]: Juan Shultz DEPT: CYTOLOGY RECD BY: Lars Knott ENTERED: 09/21/20 08:32 SP TYPE: CYSPIN FL OTHR DR: Dr. Bereket Morel MD Tissues: Urine Procedures: Pap Stain (control) Special Stain Group II Cytospin Fluid HEADER OPERATION: Not noted PRE-OP DIAGNOSIS: Bladder cancer TISSUE SUBMITTED: Urine for cytology DIAGNOSIS CYTOLOGY Urine for cytology (cytospin): Negative for malignant cells. AM:cruz 09/22/20 CYTOLOGY STUDY Slides are reviewed. CYTOLOGY GROSS Received is 60 ml of yellow, cloudy fluid labeled with the patient's name and and designated per the requisition as urine. Submitted for cytology preparation. / cruz 09/21/20 TC:5 CPT: 45798
== END | disposition home or self-care (01) ==
PROVIDERS: PCP Family Medicine; Referring Provider Urology; Visit Provider Urology
DX: Z85.51 Personal history of malignant neoplasm of bladder (principal)
CPT/HCPCS: 88108; 88313

== ENCOUNTER → 2020-09-23 11:44 | Outpatient (CLI) | payer OTHER, SELFPAY ==
[2019-09-10 12:36] VITALS: BMI 30.8
[2020-09-23 13:09] LABS: PSA,Total- Diagnostic 1.32 ng/mL (0.0-4.0)
== END ==
PROVIDERS: PCP Family Medicine; Referring Provider Urology; Visit Provider Urology
DX: C61 Malignant neoplasm of prostate (principal)
CPT/HCPCS: 36415; 84153

== ENCOUNTER → 2020-12-08 11:32 | Outpatient (CLI) | payer OTHER, SELFPAY ==
[2019-09-10 12:36] VITALS: BMI 30.8
[2020-12-08 15:31] LABS: Absolute Lymphocyte Count 2.59 X10^3/uL (0.83-4.51); Absolute Neutrophil Count 3.4 X10^3/uL (2.0-7.7); Basophil# 0.07 X10^3/uL; Eosinophil# 0.13 X10^3/uL; Eosinophils% 1.9 % (0-5); Hematocrit 43.7 % (40-54); Hemoglobin 14.4 g/dL (13.0-16.5); Lymphocyte # 2.59 X10^3/ul (4.0); Lymphocyte % 38.3 % (19-41); Mean Corpuscular Hgb 28.5 pg (27.0-32.0); Mean Corpuscular Volume 86.5 fL (80-94); Mean Platelet Vol. 10.5 fl (6.2-12.0); Monocyte# 0.58 X10^3/uL; Monocyte% 8.6 % (0-10); NRBC Flagged by Analyzer 0 % (0-5); Neutrophil # 3.38 X10^3/uL (2.7-7.7); Neutrophil % 50.1 % (47-70); Platelet Count 340 K/mm3 (150-450); RBC Distribution Width CV 12.4 % (11.6-14.6); RBC Distribution Width SD 38.8 fl (35.1-43.9); Red Blood Count 5.05 M/mm3 (4.6-6.2); White Blood Count 6.8 K/mm3 (4.4-11.0)
[2020-12-08 15:42] LABS: ALB/GLOB Ratio 0.8 RATIO (0.9-2.4); AST(SGOT) 20 U/L (15-37); Alanine Aminotransfer ALT/SGPT 29 U/L (16-61); Albumin, Serum 3.7 g/dL (3.2-5.0); Alkaline Phosphatase 58 U/L (45-117); Anion Gap 5 (5-15); BUN 21 mg/dL (7-18); BUN/Creat Ratio 20.6 RATIO (10-20); CPK Total, Creatine Kinase 119 U/L (39-308); Calcium,Total 9.2 mg/dL (8.5-10.1); Chloride 104 mmol/L (98-107); Creatinine, Serum 1.02 mg/dL (0.70-1.30); EST Glomerular Filtration Rate 77 mL/min (>60); Est Glom Filt Rate - Afr Amer 93 mL/min (>60); Globulin 4.5 g/dL (2.2-4.2); Glucose 88 mg/dL (74-106); Potassium 3.9 mmol/L (3.5-5.1); Protein, Total 8.2 g/dL (6.4-8.2); Sodium Level 135 mmol/L (136-145)
[2020-12-10 16:08] LABS: HEPATITIS B SURFACE AG Negative (Negative); Hepatitis A AB, Total Negative (Negative); Hepatitis A IgM Antibody Negative (Negative); Hepatitis B Core AB IgM Negative (Negative); Hepatitis B Core Ab Total Negative (Negative); Hepatitis C Ab <0.1 s/co ratio (0.0-0.9)
[2020-12-10 16:47] LABS: Hep B Surface Antibodies Non Reactive (.)
[2020-12-12 00:28] LABS: Anti-Nuclear Antibody Test Negative (.)
== END ==
PROVIDERS: PCP Family Medicine; Referring Provider Dermatology; Visit Provider Dermatology
DX: L43.8 Other lichen planus (principal); L21.8 Other seborrheic dermatitis; D18.01 Hemangioma of skin and subcutaneous tissue; L71.8 Other rosacea; M33.12 Other dermatomyositis with myopathy
CPT/HCPCS: 36415; 80053; 82085; 82550; 85025; 86038; 86704; 86705; 86706; 86708; 86709; 86803; 87340

== ENCOUNTER 2021-03-31 23:45 | Emergency (ER) | payer OTHER, SELFPAY ==
[2019-09-10 12:36] VITALS: BMI 30.8
[2021-03-31 23:45] VITALS: BP 144/99; PULSE 79; RESP 18; TEMP 36.6; O2SAT 97; BMI 31.7
--- NOTE | 2021-03-31 23:56 | EX.ED.UPPERE ---
HPI History of Present Illness Chief Complaint: Upper Extremity Injury Informant: patient Narrative Narrative: Patient has left shoulder and upper back pain. He has had issues with this for years. It flared up on him earlier this week. He went to his doctor and he was given Flexeril and Valium. He states that tonight the pain got worse and it is not tolerable. He took ibuprofen, Flexeril and Valium about an hour ago and his pain is not relieved. He denies any falls or trauma. [facility] Medical History Hypertension Home Medications amlodipine 5 mg PO DAILY 06/18/19 [History Last Taken 09/10/19] cholecalciferol (vitamin D3) 5,000 unit PO DAILY 06/18/19 [History Last Taken Unknown] coenzyme Q10 100 mg PO DAILY 06/18/19 [History Last Taken Unknown] cyclobenzaprine 10 mg PO TID PRN PRN 06/18/19 [History Last Taken Unknown] ibuprofen 600 mg PO TID PRN PRN 06/18/19 [History Last Taken Unknown] losartan 100 mg PO DAILY 06/18/19 [History Last Taken Unknown] omeprazole magnesium 20 mg PO DAILY 06/18/19 [History Last Taken 09/10/19] potassium citrate (bulk) 1,080 mg MC DAILY 06/18/19 [History Last Taken Unknown] Allergy/AdvReac Type Severity Reaction Status Date / Time Corticosteroids Allergy Other Verified 03/31/21 23:48 (Glucocorticoids) oxycodone HCl [From Percocet] Allergy Other Verified 03/31/21 23:48 prednisone Allergy Other Verified 03/31/21 23:48 thimerosal Allergy Other Verified 03/31/21 23:48 azithromycin AdvReac Other Verified 03/31/21 23:48 chlorhexidine AdvReac SKIN FELT Verified 03/31/21 23:48 LIKE IT WAS BURNING clindamycin AdvReac Other Verified 03/31/21 23:48 codeine AdvReac Other Verified 03/31/21 23:48 erythromycin base AdvReac Other Verified 03/31/21 23:48 [Erythromycin Base] gabapentin [From Neurontin] AdvReac Other Verified 03/31/21 23:48 naproxen AdvReac Other Verified 03/31/21 23:48 sulfamethoxazole AdvReac Other Verified 03/31/21 23:48 [From ] trimethoprim [From ] AdvReac Other Verified 03/31/21 23:48 Social History Smoking Status: Former smoker ROS ROS ED Constitutional Constitutional ED: Denies chills or fever(s) Eyes Eyes: Denies blurry vision, change in vision or diplopia ENT ENT ED: Denies ear pain, rhinorrhea or sore throat Cardiovascular Cardiovascular: Denies chest pain or palpitations Respiratory/Chest Respiratory/Chest: Denies cough, dyspnea or sputum Gastrointestinal Gastrointestinal: Denies abdominal pain, diarrhea, nausea or vomiting Genitourinary Genitourinary ED: Denies dysuria, hematuria or urinary frequency Musculoskeletal Musculoskeletal: Reports neck pain and other Details: Left shoulder pain Integumentary Denies change in pigmentation or rash Neurologic Neurologic: Denies headache(s), numbness or weakness Psychiatric Psychiatric: Denies anxiety or depression Endocrine Endocrinology: Denies polydipsia or polyuria EXAM Physical Exam Const Vital Signs: 03/31/21 23:45 Temperature 97.9 F Temperature Source Temporal Pulse Rate 79 Respiratory Rate 18 Blood Pressure 144/99 H Blood Pressure Mean 114 Pulse Ox 97 Oxygen Delivery Method Room Air Positive well nourished and well developed General Appearance ED: well developed HEENT normocephalic and atraumatic Eyes PERRL Neck supple Neck Narrative: Left trapezius area General: tenderness Chest Wall palpation of chest normal Back/Spine Back/Spine Narrative: He does have some tenderness in the left paraspinal region of the upper thoracic area Extremity Extremity Narrative: He has a limited range of motion of left shoulder secondary to pain. There is some tenderness over the clavicular area. Is sensation is intact distally. He has a 2+ radial pulse. MDM MDM MDM Narrative Medical decision making narrative: Patient was given morphine and Norflex. Upon reevaluation he was improving. Patient will be discharged home to continue his home medication regimen he will call his PCP for follow-up Discharge Plan Triage Chief Complaint: Upper Extremity Injury ED Provider: Devin Sanchez Dx/Rx/DC Orders Clinical Impression: Acute pain of left shoulder Instructions: ED Shoulder Pain, Uncertain Cause Prescriptions: No Action cyclobenzaprine 10 MG tablet 10 mg PO TID PRN PRN (Reason: muscle spasms) RF: 0 amlodipine 5 MG tablet 5 mg PO DAILY RF: 0 potassium citrate (bulk) 500 GM granules 1,080 mg MC DAILY RF: 0 ibuprofen 200 MG tablet 600 mg PO TID PRN PRN (Reason: Pain) RF: 0 losartan 100 MG tablet 100 mg PO DAILY RF: 0 coenzyme Q10 100 MG capsule 100 mg PO DAILY RF: 0 omeprazole magnesium 20 MG tablet,delayed release (DR/EC) 20 mg PO DAILY RF: 0 cholecalciferol (vitamin D3) 2,000 UNIT capsule 5,000 unit PO DAILY RF: 0 Primary Care Provider: Bereket Morel Referrals: Bereket Morel MD [Primary Care Provider] - Disposition Disposition: Home, self care
[2021-03-31] MEDS: Orphenadrine 60 MG/2 ML Ampul IM (23:59)
[2021-03-31] MEDS: morphine 10 MG/ML Syringe 8 MG IM (23:59)
[2021-04-01 00:47] VITALS: BP 135/74; PULSE 78; RESP 18; O2SAT 99
== END 2021-04-01 00:47 | disposition home or self-care (01) ==
PROVIDERS: Emergency Provider Emergency Medicine; PCP Family Medicine
DX: M25.512 Pain in left shoulder (principal); M54.6 Pain in thoracic spine; I10 Essential (primary) hypertension; Z87.891 Personal history of nicotine dependence; Z79.899 Other long term (current) drug therapy
CPT/HCPCS: 96372; 99282

== ENCOUNTER → 2021-08-30 15:26 | Outpatient (CLI) | payer OTHER, SELFPAY ==
--- NOTE | 2021-08-30 15:10 | CYSPIN_PTH ---
PATIENT: ANGELA RODRIGUES LOC: LAB U#:[id number] AGE/SX: 75/M ROOM: RE08/30/[address]: Dr. Juan Shultz MD : 1950 BED: DIS: SPEC #: [id number] RECD: 08/31/21 06:49 STATUS: ELIDA RERichardson #: [id number] VALENTIN: 08/30/21 15:[address]: Juan Shultz DEPT: CYTOLOGY RECD BY: Edilma Hobson ENTERED: 08/31/21 06:50 SP TYPE: CYSPIN FL OTHR DR: Dr. Bereket Morel MD Tissues: Urine Procedures: Pap Stain (control) Special Stain Group II Cytospin Fluid HEADER OPERATION: Not noted PRE-OP DIAGNOSIS: Malignant neoplasm of bladder TISSUE SUBMITTED: Urine for cytology DIAGNOSIS CYTOLOGY Urine for cytology (cytospin): Negative for malignant cells. AM:cruz 08/31/2021 CYTOLOGY STUDY Slides are reviewed. CYTOLOGY GROSS Received is 80 ml of light yellow clear fluid labeled with the patient's name and and designated per the requisition as urine. Submitted for cytology preparation. / cruz 08/31/2021 TC:5 CPT: 34224
[2021-08-30 17:16] LABS: Cytology, Body Fluid / CSF SEE PATHOLOGY REPORT
[2021-08-30 17:46] LABS: PSA,Total - Annual Screen 2.67 ng/mL (0.00-4.00)
== END ==
PROVIDERS: PCP Family Medicine; Visit Provider Urology
DX: Z85.51 Personal history of malignant neoplasm of bladder (principal); Z12.5 Encounter for screening for malignant neoplasm of prostate
CPT/HCPCS: 36415; 84153; 88108; 88313; G0103

== ENCOUNTER 2021-09-28 06:58 | Day surgery (SDC) | payer OTHER, SELFPAY ==
[2021-09-28] VITALS (7 sets, daily range): BP systolic 123–160; BP diastolic 64–92; PULSE 76–86; RESP 16; TEMP 36.2–36.3; O2SAT 95–100; BMI 32.8
[2021-09-28] MEDS: Lactated Ringers 1,000 ML 15 ML IV (10:00)
--- NOTE | 2021-09-28 11:43 | HP.PCM_ITS ---
HPI - General HPI Narrative ANGELA RODRIGUES, is a 71 M who presents for a cystoscopy he does not tolerate them in the office and requested anesthesia he has a history of bladder cancer [facility] Medical History (Updated 09/20/21 @ 13:31 by Mai Pastor) Arthritis Back pain Bladder disease Cancer CPAP (continuous positive airway pressure) dependence Former smoker Gastric reflux Headache History of edema History of IBS History of pain when walking History of stress test Hypertension Injury of head and neck Leg cramps Wears dentures Wears glasses Wears partial dentures Home Medications amlodipine 5 mg PO DAILY 06/18/19 [History Last Taken 09/28/21] cholecalciferol (vitamin D3) 5,000 unit PO DAILY 06/18/19 [History Last Taken Unknown] coenzyme Q10 200 mg PO DAILY 06/18/19 [History Last Taken Unknown] cyclobenzaprine 10 mg PO TID PRN PRN 06/18/19 [History Last Taken Unknown] ibuprofen 600 mg PO TID PRN PRN 06/18/19 [History Last Taken Unknown] losartan 100 mg PO QHS 06/18/19 [History Last Taken Unknown] omeprazole magnesium 20 mg PO DAILY 06/18/19 [History Last Taken 09/28/21] potassium citrate (bulk) 1,080 mg MC QHS 06/18/19 [History Last Taken Unknown] tamsulosin [Flomax] 0.4 mg PO QHS 09/20/21 [History Last Taken Unknown] ciprofloxacin HCl [Cipro] 500 mg PO BID #6 tab 09/28/21 [Rx Last Taken Unknown] Allergy/AdvReac Type Severity Reaction Status Date / Time Corticosteroids Allergy Other Verified 09/28/21 10:17 (Glucocorticoids) oxycodone HCl [From Percocet] Allergy Other Verified 09/28/21 10:17 prednisone Allergy Other Verified 09/28/21 10:17 thimerosal Allergy Other Verified 09/28/21 10:17 azithromycin AdvReac Other Verified 09/28/21 10:17 chlorhexidine AdvReac SKIN FELT Verified 09/28/21 10:17 LIKE IT WAS BURNING clindamycin AdvReac Other Verified 09/28/21 10:17 codeine AdvReac Other Verified 09/28/21 10:17 erythromycin base AdvReac Other Verified 09/28/21 10:17 [Erythromycin Base] gabapentin [From Neurontin] AdvReac Other Verified 09/28/21 10:17 naproxen AdvReac Other Verified 09/28/21 10:17 sulfamethoxazole AdvReac Other Verified 09/28/21 10:17 [From Septra] trimethoprim [From Septra] AdvReac Other Verified 09/28/21 10:17 Surgical History (Updated 09/20/21 @ 13:31 by Mai Pastor) History of cystoscopy Hx of cervical discectomy Hx of lumbar discectomy Hx of nasal septoplasty Hx of transurethral destruction of bladder lesion Social History Smoking Status: Former smoker Vital Signs Vital Signs Vital Signs: 09/28/21 10:17 Temperature 97.4 F L Temperature Source Temporal Pulse Rate 86 Respiratory Rate 16 Respiratory Pattern Normal Blood Pressure 160/90 H Blood Pressure Mean 113 Blood Pressure Source Monitor Blood Pressure Position Semi-Fowlers Blood Pressure Location Left Arm Pulse Ox 100 Oxygen Delivery Method Room Air Weight Weight: 104 kg Body Mass Index (BMI) 32.8
--- NOTE | 2021-09-28 11:43 | PCM.DC ---
Discharge Instructions Diet Discharge Diet: No restrictions Activity Discharge Activity: Return to Normal Activity and May Not Drive (while taking narcotic pain medications.) Dressing / Incision Call your doctor if you observe: Fever of 101 or Higher Follow Up Care Please Follow Up With: Juan Shultz MD When: Call [phone] for an appointment Test Results: Test results from this visit will be discussed in further detail at your follow-up appointment, if applicable. Discharge Plan Admission Primary Reason for Your Visit: bladder cancer Attending Provider: Juan Shultz Primary Care Provider: Bereket Morel Discharge Orders/Prescriptions Prescriptions: New ciprofloxacin HCl [Cipro] 500 mg tablet 500 mg PO BID Qty: 6 RF: 0 No Action cyclobenzaprine 10 MG tablet 10 mg PO TID PRN PRN (Reason: muscle spasms) RF: 0 amlodipine 5 MG tablet 5 mg PO DAILY RF: 0 potassium citrate (bulk) 500 GM granules 1,080 mg MC QHS RF: 0 ibuprofen 200 MG tablet 600 mg PO TID PRN PRN (Reason: Pain) RF: 0 losartan 100 MG tablet 100 mg PO QHS RF: 0 coenzyme Q10 100 MG capsule 200 mg PO DAILY RF: 0 omeprazole magnesium 20 MG tablet,delayed release (DR/EC) 20 mg PO DAILY RF: 0 cholecalciferol (vitamin D3) 2,000 UNIT capsule 5,000 unit PO DAILY RF: 0 tamsulosin [Flomax] 0.4 mg Capsule 0.4 mg PO QHS RF: 0 Referrals / Follow Up: Bereket Morel MD [Primary Care Provider] - Juan Shultz MD [STAFF PHYSICIAN] - Disposition Disposition (needs filled in before D/C Order can be placed): Home, Self Care
[2021-09-28] MEDS: Lactated Ringers 1,000 ML 100 ML IV (12:16)
[2021-09-28] MEDS: Lidocaine Jelly 2% 20 ML Syringe (URO-JET) 20 APPLIC (12:18)
[2021-09-28] MEDS: Lubricating Jelly 60 GM Tube 30 GM (12:18)
--- NOTE | 2021-09-28 12:32 | PCM.OPRPT ---
Report of Operation Date of Procedure: 09/28/21 Pre-Operative Diagnosis: History of bladder cancer Post-Operative Diagnosis: The same Surgery/Procedure Performed:: Diagnostic cystoscopy Description of Surgical Findings:: 71-year-old male was taken back to the operating room after smooth induction of MAC local anesthesia the penis and testicles were prepped and draped in usual fashion went into the bladder with a 18 Italian flexible ureteroscope was able to get into the urethra and prostate very easily he does have an enlarged prostate with bilobar lobar hypertrophy a small median lobe inside the bladder there were no visible tumors or polyps no stones some mild trabeculation. After looking at the bladder and doing a complete cystoscopy identifying the trigone and the left and right ureteral orifice there were no tumors or polyps seen cystoscope was removed and his anesthesia was reversed. Surgeon: ACMILA Type of Anesthesia: General Drains: NONE Admit VTE Documentation VTE Present on Admission: No VTE Mechan Device Prophylaxis: SCD's
== END 2021-09-28 14:25 | disposition home or self-care (01) ==
LOC: SDC 07:01 → AC 07:02
PROVIDERS: PCP Family Medicine; Referring Provider Urology; Visit Provider Urology
PROC: 0TJB8ZZ Inspection of Bladder, Via Natural or Artificial Opening Endoscopic (ICD-10-PCS; CPT 52000; principal; 2021-09-28 11:50)
DX: Z85.51 Personal history of malignant neoplasm of bladder (principal); I10 Essential (primary) hypertension; K21.9 Gastro-esophageal reflux disease without esophagitis; K58.9 Irritable bowel syndrome, unspecified; M19.90 Unspecified osteoarthritis, unspecified site; Z79.899 Other long term (current) drug therapy; Z87.891 Personal history of nicotine dependence
CPT/HCPCS: 52000; J7120; J2405

== ENCOUNTER → 2021-10-07 | Outpatient (CLI) | payer OTHER, SELFPAY | END | disposition home or self-care (01) | PROVIDERS: PCP Family Medicine; Visit Provider Family Medicine | DX: U07.1 COVID-19 (principal); B34.9 Viral infection, unspecified | CPT/HCPCS: 87635; 87804; U0005; U0003 ==

== ENCOUNTER → 2022-02-17 | Outpatient (CLI) | payer OTHER, SELFPAY ==
[2022-02-17 17:38] LABS: ALB/GLOB Ratio 0.9 RATIO (0.9-2.4); AST(SGOT) 24 U/L (15-37); Alanine Aminotransfer ALT/SGPT 36 U/L (16-61); Albumin, Serum 3.9 g/dL (3.2-5.0); Alkaline Phosphatase 46 U/L (45-117); Anion Gap 6 (5-15); BUN 20 mg/dL (7-18); BUN/Creat Ratio 20.3 RATIO (10-20); Chloride 105 mmol/L (98-107); Creatinine, Serum 0.99 mg/dL (0.70-1.30); EST Glomerular Filtration Rate 80 mL/min (>60); Est Glom Filt Rate - Afr Amer 97 mL/min (>60); Globulin 4.2 g/dL (2.2-4.2); Glucose 95 mg/dL (74-106); Potassium 3.7 mmol/L (3.5-5.1); Protein, Total 8.1 g/dL (6.4-8.2); Sodium Level 137 mmol/L (136-145)
[2022-02-17 17:39] LABS: Absolute Lymphocyte Count 2.62 X10^3/uL (0.83-4.51); Absolute Neutrophil Count 3.5 X10^3/uL (2.0-7.7); Basophil# 0.05 X10^3/uL; Basophil% 0.7 % (0-1); Eosinophil# 0.16 X10^3/uL; Eosinophils% 2.4 % (0-5); Hematocrit 44.1 % (40-54); Hemoglobin 14.6 g/dL (13.0-16.5); Lymphocyte # 2.62 X10^3/ul (0.83-4.51); Lymphocyte % 38.9 % (19-41); Mean Corp Hgb Conc 33.1 g/dL (32-36); Mean Corpuscular Hgb 29.1 pg (27.0-32.0); Mean Corpuscular Volume 87.8 fL (80-94); Mean Platelet Vol. 10.9 fl (6.2-12.0); Monocyte# 0.42 X10^3/uL; Monocyte% 6.2 % (0-10); NRBC Flagged by Analyzer 0 % (0-5); Neutrophil # 3.47 X10^3/uL (2.7-7.7); Neutrophil % 51.7 % (47-70); Platelet Count 326 K/mm3 (150-450); RBC Distribution Width CV 12.8 % (11.6-14.6); Red Blood Count 5.02 M/mm3 (4.6-6.2); White Blood Count 6.7 K/mm3 (4.4-11.0)
[2022-02-17 18:09] LABS: Microalbumin,Random Urine < 5.0 mg/L (NO RANGE EST.)
== END | disposition home or self-care (01) ==
LOC: MFPLAB 14:59
PROVIDERS: PCP Family Medicine; Referring Provider Family Medicine; Visit Provider Family Medicine
DX: I10 Essential (primary) hypertension (principal); M06.4 Inflammatory polyarthropathy
CPT/HCPCS: 36415; 80053; 82043; 82570; 85025

== ENCOUNTER → 2022-08-07 | Outpatient (CLI) | payer OTHER, SELFPAY ==
--- NOTE | 2022-08-07 13:23 | MRI_ITS ---
EXAM: MR LEFT LOWER EXTREMITY WITHOUT AND WITH INTRAVENOUS CONTRAST, FOOT CLINICAL INDICATION: PAIN IN BALL OF L FOOT TECHNIQUE: Multiplanar and multisequence MR images of the left foot without and with intravenous contrast. This report was created using [employer] report [employer] technology. CONTRAST: 21ml iv Clariscan COMPARISON: None. FINDINGS: At least moderate osteoarthrosis involving the first metatarsophalangeal joint without hallux deformity. Large amount of fluid distending the joint with synovitis. If concerned for septic arthritis, recommend joint aspiration. No evidence for osteomyelitis. No soft tissue masses or fluid collections. Flexor and extensor tendons are intact. Visualized plantar aponeurosis is unremarkable. MRI/Lower Ext No Joint W/WO Cont IMPRESSION: At least moderate osteoarthrosis involving the first metatarsophalangeal joint without hallux deformity. Large amount of fluid distending the joint with synovitis. If concerned for septic arthritis, recommend joint aspiration. Electronically Signed: Osman Thompson MD at 22:37 EDT ,
[2022-08-07 14:05] LABS: CREATININE FINGERSTICK < 0.9 mg/dL (0.70-1.30); EGFR FINGERSTICK > 60.0000 mL/min (>60)
== END | disposition home or self-care (01) ==
LOC: MRI 13:02
PROVIDERS: PCP Family Medicine; Referring Provider Student in an Organized Health Care Education/Training Program; Visit Provider Student in an Organized Health Care Education/Training Program
DX: M77.52 Other enthesopathy of left foot and ankle (principal)
CPT/HCPCS: 73720; A9575

== ENCOUNTER 2022-09-21 14:34 | Outpatient (CLI) | payer OTHER, SELFPAY ==
[2022-09-21 15:37] LABS: PSA,Total - Annual Screen 1.32 ng/mL (0.00-4.00)
== END 2022-09-21 23:59 | disposition home or self-care (01) ==
LOC: LAB 14:35
PROVIDERS: PCP Family Medicine; Visit Provider Registered Nurse
DX: Z12.5 Encounter for screening for malignant neoplasm of prostate (principal)
CPT/HCPCS: 36415; 84153; G0103

== ENCOUNTER → 2022-11-03 | Outpatient (CLI) | payer OTHER, SELFPAY ==
[2022-11-03 18:06] LABS: Microalbumin,Random Urine 5.4 mg/L (NO RANGE EST.)
[2022-11-03 18:33] LABS: ALB/GLOB Ratio 1.1 RATIO (0.9-2.4); AST(SGOT) 17 U/L (15-37); Alanine Aminotransfer ALT/SGPT 28 U/L (16-61); Albumin, Serum 3.9 g/dL (3.2-5.0); Alkaline Phosphatase 58 U/L (45-117); Anion Gap 8 (5-15); BUN 15 mg/dL (7-18); BUN/Creat Ratio 15.2 RATIO (10-20); Calcium,Total 9.2 mg/dL (8.5-10.1); Chloride 101 mmol/L (98-107); Cholesterol 160 mg/dL (200); Creatinine, Serum 0.99 mg/dL (0.70-1.30); EST Glomerular Filtration Rate 79 mL/min (>60); Est Glom Filt Rate - Afr Amer 96 mL/min (>60); Globulin 3.7 g/dL (2.2-4.2); Glucose 109 mg/dL (74-106); High Density Lipoprotein 45 mg/dL; Protein, Total 7.6 g/dL (6.4-8.2); Sodium Level 136 mmol/L (136-145); Triglycerides 59 mg/dL; Very Low Density Lipoprotein 12 mg/dL (5-40)
[2022-11-03 18:43] LABS: Vitamin D,25 Hydroxy 52.6 ng/mL
== END | disposition home or self-care (01) ==
LOC: MFPLAB 15:08
PROVIDERS: PCP Family Medicine; Visit Provider Family Medicine
DX: Z00.00 Encounter for general adult medical examination without abnormal findings (principal); M06.4 Inflammatory polyarthropathy
CPT/HCPCS: 36415; 80053; 80061; 82043; 82306; 82570

== ENCOUNTER → 2022-12-18 | Outpatient (CLI) | payer OTHER, SELFPAY ==
--- NOTE | 2022-12-18 10:20 | RAD_ITS ---
EXAM: XR LUMBOSACRAL SPINE COMPLETE WITH FLEXION/EXTENSION, 6 OR MORE VIEWS CLINICAL INDICATION: LUMBAR DISC HERNIATION WITH RADICULOPATHY, Hx surgery 2 years ago TECHNIQUE: Lateral, frontal, oblique and lateral flexion/extension views of the lumbar spine and sacrum. This report was created using [employer] report [employer] technology. COMPARISON: None. FINDINGS: VERTEBRAE: Flexion and extension images show no change in alignment. Preserved vertebral body height. No fracture. No spondylolisthesis. Preservation of the normal lumbar lordosis. No significant facet arthropathy. No instability. DISC SPACES: There is disc space narrowing at L5-S1. GASTROINTESTINAL TRACT: Unremarkable as visualized. Included bowel gas pattern is non-obstructive. RAD/L/S Spine w Bend Min 6 Vw IMPRESSION: Degenerative changes with disc space narrowing at L5-S1. There are no acute osseous abnormalities. Electronically Signed: Nino Wright MD at 23:45 EST ,
== END | disposition home or self-care (01) ==
LOC: RAD 10:15
PROVIDERS: PCP Family Medicine
DX: M51.16 Intervertebral disc disorders with radiculopathy, lumbar region (principal)
CPT/HCPCS: 72114

== ENCOUNTER → 2023-05-25 | Outpatient (CLI) | payer OTHER, SELFPAY ==
--- NOTE | 2023-05-25 12:45 | RAD_ITS ---
STUDY: X-RAY - CERVICAL SPINE REASON FOR EXAM: Male, 73 years old. History of surgery. Follow-up. TECHNIQUE: 8 view(s) of the cervical spine, including lateral flexion and extension views, were obtained. COMPARISON: None FINDINGS: Osteopenia. Normal anterior atlantoaxial articulation. Normal odontoid process. Slight straightening of the cervical spine. Diffuse moderate uncovertebral and facet sclerosis. Interbody fusion at C5-6 with intervertebral disc prostheses at C4-5 and C6-7. Normal alignment with limited flexion and extension and no abnormal motion. No anterior bony neural foraminal encroachment. Minimal left carotid calcification. RAD/Cerv Spine Obl/Flex/Ext Comp IMPRESSION: Straightening of the cervical spine with postsurgical changes as described. Limited flexion and extension with no abnormal motion. No acute abnormality or erosive changes. Electronically Signed: Jamari Figueroa MD at 14:28 EDT ,
== END | disposition home or self-care (01) ==
PROVIDERS: PCP Family Medicine
DX: M50.23 Other cervical disc displacement, cervicothoracic region (principal)
CPT/HCPCS: 72052

== ENCOUNTER → 2023-08-10 | Outpatient (CLI) | payer OTHER, SELFPAY ==
--- NOTE | 2023-08-10 13:49 | RAD_ITS ---
STUDY: X-RAY - CERVICAL SPINE REASON FOR EXAM: Male, 73 years old. Follow-up after cervical spine fusion. TECHNIQUE: 7 view(s) of the cervical spine, including lateral flexion and extension views, were obtained. COMPARISON: May 25, 2023 FINDINGS: Osteopenia. Normal anterior atlantoaxial articulation. Normal odontoid process. Slight reversal of the normal lordotic curve, likely positional. Limited flexion and extension with no abnormal motion. Diffuse uncovertebral and facet sclerosis. Interbody fusion at C5-6 with intervertebral disc prostheses at C4-5 and C6-7, unchanged from prior study. Mild anterior bony neural foraminal encroachment at C4-5 on the right and C5-6 on the left. Bilateral carotid calcification, left greater than right. RAD/Cerv Spine Obl/Flex/Ext Comp IMPRESSION: Osteopenia with stable lower cervical spine fusion and neural foraminal encroachment at C4-5 on the right and C5-6 on the left. Bilateral carotid calcification. No acute abnormality or erosive changes Electronically Signed: Jamari Figueroa MD at 14:58 EDT ,
== END | disposition home or self-care (01) ==
PROVIDERS: PCP Family Medicine
DX: M50.20 Other cervical disc displacement, unspecified cervical region (principal)
CPT/HCPCS: 72052

== ENCOUNTER → 2023-09-11 | Outpatient (CLI) | payer OTHER, SELFPAY ==
[2023-09-11 15:54] LABS: Absolute Lymphocyte Count 2.31 X10^3/uL (0.83-4.51); Basophil# 0.07 X10^3/uL; Basophil% 1.2 % (0-1); Eosinophil# 0.12 X10^3/uL; Hematocrit 42.9 % (40-54); Hemoglobin 13.9 g/dL (13.0-16.5); Lymphocyte # 2.31 X10^3/ul (0.83-4.51); Lymphocyte % 38.7 % (19-41); Mean Corp Hgb Conc 32.4 g/dL (32-36); Mean Corpuscular Hgb 28.9 pg (27.0-32.0); Mean Corpuscular Volume 89.2 fL (80-94); Mean Platelet Vol. 10.6 fl (6.2-12.0); Monocyte# 0.46 X10^3/uL; Monocyte% 7.7 % (0-10); NRBC Flagged by Analyzer 0 % (0-5); Neutrophil % 50.2 % (47-70); Platelet Count 342 K/mm3 (150-450); RBC Distribution Width CV 12.4 % (11.6-14.6); RBC Distribution Width SD 41.1 fl (35.1-43.9); Red Blood Count 4.81 M/mm3 (4.6-6.2)
[2023-09-11 16:05] LABS: Partial Thromboplast Time 32.2 Seconds (24.1-36.2); Prothrombin Time (Protime)PT. 13.4 SECONDS (11.7-14.9)
[2023-09-11 17:12] LABS: Microalbumin,Random Urine 6.2 mg/L (NO RANGE EST.); Microalbumin:Creatinine Ratio 7.1 mg/g CRE (<30 mg/g CRE)
[2023-09-11 17:17] LABS: AST(SGOT) 20 U/L (15-37); Alanine Aminotransfer ALT/SGPT 26 U/L (16-61); Albumin, Serum 3.7 g/dL (3.2-5.0); Alkaline Phosphatase 47 U/L (45-117); Anion Gap 6 (5-15); BUN 21 mg/dL (7-18); BUN/Creat Ratio 24.7 RATIO (10-20); Calcium,Total 8.9 mg/dL (8.5-10.1); Chloride 106 mmol/L (98-107); Creatinine, Serum 0.85 mg/dL (0.70-1.30); EST Glomerular Filtration Rate 94 mL/min (>60); Est Glom Filt Rate - Afr Amer 114 mL/min (>60); Globulin 3.8 g/dL (2.2-4.2); Glucose 104 mg/dL (74-106); Potassium 3.8 mmol/L (3.5-5.1); Protein, Total 7.5 g/dL (6.4-8.2); Sodium Level 138 mmol/L (136-145); Thyroid Stim Hormone (TSH) 1.24 uIU/mL (0.358-3.74)
[2023-09-15 13:07] LABS: Thrombin Time 17.5 sec (0.0-23.0)
== END | disposition home or self-care (01) ==
LOC: MTLAB 13:01
PROVIDERS: PCP Family Medicine; Referring Provider Family Medicine; Visit Provider Family Medicine
DX: G47.33 Obstructive sleep apnea (adult) (pediatric) (principal); I10 Essential (primary) hypertension; R23.3 Spontaneous ecchymoses
CPT/HCPCS: 36415; 80053; 82043; 82570; 84443; 85025; 85610; 85670; 85730

== ENCOUNTER → 2023-10-04 | Outpatient (CLI) | payer OTHER, SELFPAY ==
--- NOTE | 2023-10-04 16:55 | RAD_ITS ---
INDICATION: SACROILITIS EXAMINATION/TECHNIQUE: X-RAY - XR Spine Lumbar 2 or 3 Views COMPARISON: Lumbar spine x-rays December 18, 2022 FINDINGS: VERTEBRAE: Preserved vertebral body height. No fracture. No spondylolisthesis. Preservation of the normal lumbar lordosis. Moderate facet arthropathy mid and lower lumbar spine. DISCS: Significant L5-S1 intervertebral disc height loss and endplate sclerotic and mild bony proliferative changes, unchanged. Other intervertebral discs show no significant height loss or degenerative endplate changes. INCLUDED ABDOMEN: Included bowel gas pattern is non-obstructive. Significant intimal calcifications abdominal aorta and branch vessels. Sacroiliac joints are notable for fusion hardware right sacroiliac joint with nonvisualized sacroiliac joint suggesting osseous coalition. Consider dedicated sacroiliac joint x-rays. Left sacroiliac joint is within normal limits of the exam. RAD/Lumbar Spine 2 or 3 Views IMPRESSION: Limited exam for sacroiliitis. Consider dedicated sacroiliac joint x-rays. Fusion hardware right sacroiliac joint with nonvisualization right sacroiliac joint. Left sacroiliac joints within normal limits of the exam. Degenerative changes L5-S1 as above. Electronically Signed: Perez Walter DO at 22:39 EST ,
--- OUTSIDE RECORDS SUMMARY | 2023-10-04 17:00 | XMS RPT_ITS | CCD ---
Author Name Unknown Address [address] [place] [address] Organization [facility] Care Team Providers Care Senior Architectural Designer Name Role Phone Jewel Morel MD A Primary Care Provider [phone] MOREL, JEWEL A Primary Care Unavailable SIEGAL, JULIÁN Attending Unavailable SIEGAL, JULIÁN Referring Unavailable MOREL, JEWEL A Primary Care Unavailable SIEGAL, JULIÁN Attending Unavailable SIEGAL, JULIÁN Referring Unavailable MOREL, JEWEL A Primary Care Unavailable Jewel Morel MD A Primary Care Provider SIEGAL, JULIÁN Attending Unavailable SIEGAL, JULIÁN Referring Unavailable MOREL, JEWEL A Primary Care Unavailable SIEGAL, JULIÁN Attending Unavailable SIEGAL, JULIÁN Referring Unavailable MOREL, JEWEL A Primary Care Unavailable SIEGAL, JULIÁN Attending Unavailable MOREL, JEWEL A Primary Care Unavailable SIEGAL, JULIÁN Referring Unavailable SIEGAL, JULIÁN Attending Unavailable MOREL, JEWEL A Primary Care Unavailable SIEGAL, JULIÁN Referring Unavailable MOREL, JEWEL A Primary Care Unavailable VINNIE GRUBER Attending Unavailable SIEGAL, JULIÁN Referring Unavailable SIEGAL, JULIÁN Attending Unavailable SIEGAL, JULIÁN Referring Unavailable MOREL, JEWEL A Primary Care Unavailable MOREL, JEWEL A Primary Care Unavailable MOREL, JEWEL A Primary Care Unavailable MOREL, JEWEL A Primary Care Unavailable MOREL, JEWEL A Primary Care Unavailable MANE, CHARLOTTE S Attending Unavailable MANE, CHARLOTTE S Referring Unavailable MANE, CHARLOTTE S Attending Unavailable MANE, CHARLOTTE S Referring Unavailable MOREL, JEWEL A Primary Care Unavailable MOREL, JEWEL A Primary Care Unavailable SIEGAL, JULIÁN Referring Unavailable SIEGAL, JULIÁN Admitting Unavailable SIEGAL, JULIÁN Attending Unavailable MOREL, JEWEL A Primary Care Unavailable SIEGAL, JULIÁN Referring Unavailable SIEGAL, JULIÁN Admitting Unavailable SIEGAL, JULIÁN Attending Unavailable MOREL, JEWEL A Primary Care Unavailable CONSULT, GENERAL MEDICINE Consulting Unavai lable SIEGAL, JULIÁN Referring Unavailable SIEGAL, JULIÁN Attending Unavailable MOREL, JEWEL A Primary Care Unavailable MANE, CHARLOTTE Referring Unavailable MANE, CHARLOTTE Attending Unavailable MOREL, JEWEL A Primary Care Unavailable MANE, CHARLOTTE Attending Unavailable MANE, CHARLOTTE Referring Unavailable MOREL, JEWEL A Primary Care Unavailable SIEGAL, JULIÁN Referring Unavailable SIEGAL, JULIÁN Attending Unavailable MOREL, JEWEL A Primary Care Unavailable SIEGAL, JULIÁN Referring Unavailable MANE, CHARLOTTE Attending Unavailable MOREL, JEWEL A Primary Care Unavailable MANE, CHARLOTTE Referring Unavailable MANE, CHARLOTTE Attending Unavailable MOREL, JEWEL A Primary Care Unavailable SIEGAL, JULIÁN Attending Unavailable SIEGAL, JULIÁN Referring Unavailable MOREL, JEWEL A Primary Care Unavailable MANE, CHARLOTTE Referring Unavailable MANE, CHARLOTTE Attending Unavailable MOREL, JEWEL A Primary Care Unavailable MOREL, JEWEL A Primary Care Unavailable MOREL, JEWEL A Primary Care Unavailable Allergies Allergy Classification Reported Allergen(s) Allergy Type Date of Onset Reaction(s) Facility (10 sources) Azithromycin Drug Allergy 9 Constipation [facility] (10 sources) Clindamycin Drug Allergy 9 Dyspepsia [facility] (10 sources) Codeine Drug Allergy 9 Anxiety [facility] (10 sources) Erythromycin Drug Allergy 9 Dyspepsia [facility] (10 sources) gabapentin Drug Allergy 9 Dyspepsia [facility] (10 sources) Naproxen Drug Allergy 9 Dyspepsia [facility] (10 sources) oxyCODONE Drug Allergy 9 [facility] (8 sources) [facility]) Sulfamethoxazole / Trimethoprim Drug Allergy 9 Dyspepsia [facility] (8 sources) Thimerosal Drug Allergy 9 Myalgia [facility] (4 sources) Acetaminophen / oxyCODONE Drug Allergy 0 [facility] (2 sources) HYDROmorphone Drug Allergy 3 [facility] (2 sources) Prednisone Propensity to adverse reactions to drug [facility] Thimerosal Drug Allergy 9 Myalgia [facility] Medications Current Medications Medication Drug Class(es) Dates Sig (Normalized) Sig (Original) acetaminophen 325 mg / HYDROcodone bitartrate 5 mg oral tablet (3 sources) Opioid Agonist Start: 09-20-2023 End: 09-25-2023 take 1 tablet by mouth four times daily as needed for pain hydroCODone-aceta minophen 5-325 MG tablet Indications: Elective surgery Take 1 tablet by mouth 4 times daily as needed for Moderate Pain for up to 5 days. 20 tablet 0 09/20/2023 09/25/2023 Active Completed/Discontinued Medications Medication Drug Class(es) Dates Sig (Normalized) Sig (Original) Acetaminophen (1 source) Start: 09-20-2023 End: 09-20-2023 acetaminophen (OFIRMEV) IVPB 1,000 mg bupivacaine hydrochloride 5 mg/ml injectable solution (4 sources) Amide Local Anesthetic Start: 06-15-2023 End: 06-15-2023 BUPivacaine (MARCAINE) 0.5 % injection 1 mL Problems Active Problems Problem Classification Problem Date Documented Date Episodic/Chronic Essential hypertension (4 sources) Benign essential hypertension; Translations: [Essential (primary) hypertension] Onset: 05-11-2023 05-11-2023 Chronic Other acquired deformities (4 sources) Lumbar spondylolisthesis; Translations: [Spondylolisthesis, lumbar region] Onset: 01-22-2023 Episodic Other acquired deformities (2 sources) Spondylolisthesis, lumbar region; Translations: [Spondylolisthesis, lumbar region] Onset: 01-22-2023 Episodic Other connective tissue disease (1 source) Metatarsalgia of left foot; Translations: [Metatarsalgia, left foot] 04-20-2023 Episodic Other non-traumatic joint disorders (1 source) Hip pain; Translations: [Pain in right hip] Episodic Other non-traumatic joint disorders (2 sources) Pain in right hip; Translations: [Pain in right hip] Onset: 01-31-2023 Episodic Other non-traumatic joint disorders (2 sources) Pain in left hip; Translations: [Pain in left hip] Onset: 01-31-2023 Episodic Other nutritional; endocrine; and metabolic disorders (1 source) Obese class I; Translations: [Obesity, unspecified] Onset: 07-27-2023 07-27-2023 Chronic Residual codes; unclassified (2 sources) Obstructive sleep apnea syndrome; Translations: [Obstructive sleep apnea (adult) (pediatric)] Onset: 05-11-2023 05-11-2023 Chronic Residual codes; unclassified (2 sources) Obstructive sleep apnea (adult) (pediatric); Translations: [Obstructive sleep apnea (adult) (pediatric)] Onset: 05-11-2023 Chronic Residual codes; unclassified (1 source) Patient encounter status; Translations: [Encounter for procedure for purposes other than remedying health state, unspecified] 09-20-2023 Episodic Residual codes; unclassified (2 sources) Encounter for procedure for purposes other than remedying health state, unspecified; Translations: [Encounter for procedure for purposes other than remedying health state, unspecified] Onset: 09-20-2023 Episodic Spondylosis; intervertebral disc disorders; other back problems (15 sources) Other cervical disc displacement, unspecified cervical region; Translations: [Displacement of cervical intervertebral disc] Onset: 01-31-2023 Chronic Spondylosis; intervertebral disc disorders; other back problems (7 sources) Bilateral sacroiliac joint pain; Translations: [Sacrococcygeal disorders, not elsewhere classified] Onset: 04-20-2023 04-20-2023 Episodic Past or Other Problems Problem Classification Problem Date Documented Date Episodic/Chronic Other aftercare (2 sources) Encounter for follow-up examination after completed treatment for conditions other than malignant neoplasm; Translations: [Encounter for follow-up examination after completed treatment for conditions other than malignant neoplasm] Onset: 04-20-2023 Episodic Other non-traumatic joint disorders (5 sources) Pain in right knee; Translations: [Pain in joint, lower leg] Onset: 01-09-2023 Episodic Other upper respiratory disease (5 sources) Hoarse; Translations: [Dysphonia] Onset: 04-23-2023 04-23-2023 Episodic Residual codes; unclassified (2 sources) Postoperative state; Translations: [Other specified postprocedural states] Onset: 05-10-2023 05-11-2023 Episodic Results Test Name Value Interpretation Reference Range Facil ity Vital Signs Date Time Vital Sign Value Performing Clinician Vinay alfaro 09-20-2023 13:50-0500 Diastolic blood pressure 73 mm[Hg] Julián Hill MD Work Phone: [employer] 09-20-2023 13:50-0500 Heart rate 80 /min Julián Hill MD Work Phone: [facility] 09-20-2023 13:50-0500 Respiratory rate 16 /min Julián Hill MD Work Phone: [facility] 09-20-2023 13:50-0500 SaO2% (BldA) [Mass fraction] 96 % Jluián Hill MD Work Phone: [facility] 09-20-2023 13:50-0500 Systolic blood pressure 155 mm[Hg] Julián Hill MD Work Phone: [facility] 09-20-2023 13:00-0500 Body temperature 97 [degF] Julián Hill MD Work Phone: [facility] 09-20-2023 09:29-0500 Body height 177.8 cm Julián Hill MD Work Phone: [facility] 06-15-2023 13:36-0400 Body height 177.8 cm Charlotte Mane MD Work Phone: [facility] 06-15-2023 13:36-0400 Body mass index (BMI) [Ratio] 32.71 kg/m2 Charlotte Mane MD Work Phone: [facility] 06-15-2023 13:36-0400 Body weight 103.42 kg Charlotte Mane MD Work Phone: [facility] 04-23-2023 13:25-0400 Body height 177.8 cm Vinnie Gruber MD Work Phone: [facility] 04-23-2023 13:25-0400 Body mass index (BMI) [Ratio] 33.15 kg/m2 Vinnie Gruber MD Work Phone: [facility] [employer] [facility] 04-23-2023 13:25-0400 Body temperature 97.39 [degF] Vinnie Gruber MD Work Phone: [facility] [employer] [facility] 04-23-2023 13:25-0400 Body weight 104.78 kg Vinnie Gruber MD Work Phone: [facility] 04-20-2023 09:230400 Body height 177.8 cm Charlotte Mane MD Work Phone: [facility] 04-20-2023 09:23-0400 Body mass index (BMI) [Ratio] 33 kg/m2 Charlotte Mane MD Work Phone: [facility] 04-20-2023 09:-0400 Body weight 104.33 kg Charlotte Mane MD Work Phone: [facility] 03-20-2023 13:21-0400 Body height 177.8 cm Charlotte Mane MD Work Phone: [facility] 03-20-2023 13:21-0400 Body mass index (BMI) [Ratio] 31.41 kg/m2 Charlotte Mane MD Work Phone: [facility] 03-20-2023 13:-0400 Body weight 99.3 kg Charlotte Mane MD Work Phone: [facility] Encounters Encounter Date Encounter Type Care Provider Facility Start: 09-20-2023 End: 09-20-2023 ambulatory [facility] Start: 09-20-2023 End: 09-20-2023 Subsequent hospital visit by physician Julián Hill MD Work Phone: [facility] Procedures Date Procedure Procedure Detail Performing Clinician Start: 06-15-2023 Arthrocentesis aspir &/inj major jt/bursa w/us Charlotte Mane MD Work Phone: Start: 06-15-2023 US Unspecified body region Charlotte Mane MD Work Phone: Start: 04-23-2023 Laryngoscopy flexibl e diagnostic Vinnie Gruber MD Work Phone: Start: 03-20-2023 Arthrocentesis aspir &/inj major jt/bursa w/us Charlotte Mane MD Work Phone: Start: 03-20-2023 US Unspecified body region Charlotte Mane MD Work Phone: Start: 01-31-2023 RADIOLOGY (SCANNED) Po Hill MD Work Phone: Start: 01-22-2023 Mri spinal canal lum bar w/o & w/contr matrl Julián Hill MD Work Phone: Start: 01-22-2023 Radiologic examinati on knee 3 views Julián Hill MD Work Phone: Plan of Treatment Date Care Activity Detail Author Start: 05-07-2029 Tetanus vaccination TETANUS [facility] Start: 01-03-2024 Screening for malignant neoplasm of colon COLORECTAL CANCER SCREENING DISCUSSION [facility] Start: 09-20-2023 End: 09-20-2023 Arthrodesis sacroiliac joint percutaneous ARTHRODESIS SACROILIAC JOINT MINIMALLY INVASIVE W/ TRANSFIXING DEVICE Sacroiliitis 09/20/2023 10:19 AM EST [facility] Start: 09-20-2023 End: 09-20-2023 Fluoroscopy up to 1 hour physician/qhp time FLUOROSCOPY IN OR Sacroiliitis 09/20/2023 10:19 AM EST [facility] Start: 07-27-2023 End: 07-27-2023 Patient encounter procedure 07/27/2023 12:00 PM EDT Office Visit [facility] [address] [place] [address] [place] [address] Charlotte Mane MD [address] [place] [address] [place] [address] [facility] Start: 06-22-2023 COVID-19 VACCINE ( season) COVID-19 VACCINE ( season) [facility] Start: 06-22-2023 Influenza vaccination [facility] Start: 06-15-2023 End: 06-15-2023 Patient encounter procedure 06/15/2023 1:40 PM EDT Office Visit [facility] [address] [place] [address] [place] [address] Charlotte Mane MD [address] [place] [address] [place] [address] [facility] Start: 04-23-2023 End: 04-23-2023 Patient encounter procedure [facility] Ot[facility] Start: 04-20-2023 End: 04-20-2023 Admission to establishment 04/20/2023 1:00 PM EDT Pre-Operative Nurse Assessment Rena Puente Pre Admission [address] [place] [address] Rena Puente Pre Admission Start: 04-20-2023 End: 04-20-2023 Patient encounter procedure [facility] Start: 03-20-2023 End: 03-20-2023 Patient encounter procedure 03/20/2023 Office Visit Orthopaedics Charlotte Mane MD [address] [place] [address] [place] [address] [facility] Start: 02-09-2023 End: 02-09-2023 Patient encounter procedure 02/09/2023 Office Visit Orthopaedics Charlotte Mane MD [address] [facility] [place] [address] [facility] Start: 04-07-2020 Potassium [Moles/volume] in Serum or Plasma POTASSIUM [facility] Start: 01-13-2017 Abdominal aortic aneurysm screening ABDOMINAL AORTIC ANEURYSM HIGH RISK SCREEN [facility] Start: 01-13-2017 Pneumococcal vaccination PNEUMOCOCCAL VACCINE SERIES (1 - PCV) [facility] Start: 01-13-2002 Prostate specific antigen measurement PROSTATE CANCER SCREENING DISCUSSION [facility] Start: 01-13-2002 Zoster vaccine hzv live for subcutaneous use ZOSTER (SHINGLES) VACCINE (1 of 2) [facility] Start: 1992 Lipid panel LIPID SCREENING [facility] Start: 1950 COVID-19 VACCINE (#1) COVID-19 VACCINE (#1) [facility] Start: 1950 Hepatitis C screening HEPATITIS C VIRUS SCREENING [facility] End: 02-12-2023 CT Cervical spine WO contrast [facility] Work Phone: Immunizations Immunization Date Immunization Notes Care Provider García dominguez 08-03-2021 influenza virus vaccine, unspecified formulation Julián Hill MD Work Phone: [facility] Payers Date Payer Category Payer Unknown [employer] / [employer] [id number] 2014-Present [address] [place] [address] [id number] 2014 Unknown [id number] 1952 Unknown [id number] 2.16.840.1.101103.3.579.2.983 1952 Unknown [id number] 2.16.840.1.772764.3.579.2.983 1952 Unknown [id number] 2.16.840.1.767244.3.579.2.983 1952 Unknown [id number] 2.16.840.1.392208.3.579.2.983 1952 Unknown [id number] 2.16.840.1.725763.3.579.2.983 1952 Unknown [id number] 2.16.840.1.416287.3.579.2.983 1952 Unknown [id number] 2.16.840.1.306762.3.579.2.983 1952 Unknown [id number] 2.16.840.1.001854.3.579.2.983 1952 Unknown [id number] 2.16.840.1.109390.3.579.2.983 1952 Unknown [id number] 2.16.840.1.947437.3.579.2.983 1952 Unknown [id number] 2.16.840.1.933281.3.579.2.983 1952 Unknown [id number] 2.16.840.1.332935.3.579.2.983 1952 Unknown [id number] 2.16.840.1.926366.3.579.2.983 1952 Unknown [id number] 2.16.840.1.386381.3.579.2.983 1952 Unknown [id number] 2.16.840.1.083363.3.579.2.983 1952 Unknown [id number] 2.16.840.1.394388.3.579.2.983 1952 Unknown [id number] 2.16.840.1.799937.3.579.2.983 1952 Unknown [id number] 2.16.840.1.845049.3.579.2.983 1952 Unknown [id number] 2.16.840.1.586150.3.579.2.983 1952 Unknown [id number] 2.16.840.1.319085.3.579.2.983 1952 Unknown [id number] 2.16.840.1.830915.3.579.2.983 1952 Unknown [id number] 2.16.840.1.225134.3.579.2.983 1952 Unknown [id number] 2.16.840.1.791488.3.579.2.983 1952 Unknown [id number] 2.16.840.1.566020.3.579.2.983 1952 Unknown [id number] 2.16.840.1.256492.3.579.2.983 1952 Unknown [id number] 2.16.840.1.627987.3.579.2.983 1952 Unknown [id number] 2.16.840.1.389030.3.579.2.983 1952 Unknown [id number] 2.16.840.1.037723.3.579.2.983 1952 Unknown [id number] 2.16.840.1.766328.3.579.2.983 Social History Date Type Detail Facility Start: 06-12-2019 End: 04-23-2023 Tobacco smoking status NHIS Ex-smoker [facility] End: 10-22-2009 History of tobacco use Current smoker [facility] [employer] [facility] End: 10-22-2009 History of tobacco use Cigarette Smoker [facility] [employer] [facility] Start: 06-12-2019 End: 04-23-2023 Tobacco use and exposure Smokeless tobacco non-user [facility] Start: 06-16-2019 End: 09-20-2023 Alcohol intake Lifetime non-drinker (finding) [facility] Start: 06-12-2019 History SDOH Alcohol Frequency 1 [facility] Start: 1950 Sex Assigned At Not on file A [facility] Start: 04-07-2019 End: 09-20-2023 History of Social function [facility] Start: 04-07-2019 End: 09-20-2023 Alcohol Use Disorder Identification Test - Consumption [AUDIT-C] [facility] Frequency of Alcohol Consumption Never [facility] Medical Equipment Procedure Code Equipment Code Equipment Origin al Text Equipment Identifier Dates [employer]ix M6 Artificial Cervical Disc. Size: 7ll (7mm Hx 17mm Wx 16mm D) [id number] Start: 05-10-2023 [employer] Firebir d Si Fusion System [id number] Start: 09-20-2023 Goals Date Patient Goal Desired Activity /State Personal health goal Clinical Notes 03-20-2023 to 09-20-2023 Jazmin Valencia RN - 09/20/2023 2:39 PM Ron Valencia RN - 09/20/2023 2:39 PM Ron Valencia RN - 09/20/2023 2:36 PM Ron Valencia RN - 09/20/2023 1:50 PM Ron Valencia RN - 09/20/2023 12:59 PM EST Note Date & Type Note Facility 09-20-2023 Nurse Surgical operation note Adrianne from OT here talking with patient. [facility] 09-20-2023 Nurse Note Adrianne from OT here talking with patient. Discharge instructions reviewed with patient and his ; verbalized understanding and copy given to patient. It is best if you have a responsible adult with you for the next 24 hours. Kuldip from PT here talking with patient. Discharged per stretcher to outpatient room 11 in stable condition and without complaints. Call light in reach. Pulse ox on; alarms/volume on. Stretcher in lowest position and brake on. Denies nausea. States is warm enough. Demonstrates ability to deep breathe/cough effectively. Patient transported to PACU via cart by DONNYRN and RR, MS [employer] D[employer]. Monitors applied and report given to MELIDA JIMENEZ. documented in this encounter [facility] 09-20-2023 Nurse Surgical operation note Discharge instructions reviewed with patient and his ; verbalized understanding and copy given to patient. It is best if you have a responsible adult with you for the next 24 hours. [facility] [employer] [facility] 09-20-2023 Nurse Surgical operation note Kuldip from PT here talking with patient. [facility] [employer] [facility] 09-20-2023 History of Presen t illness Narrative 09/20/23 [id number] Surgery Information RN Approved Intervention as tolerated Referring Physician Dr. Gonzales Surgery date 09/20/23 Type of Surgery Right SI fixation Home Setting Residence House Lives With spouse First floor setup bedroom;walk-in shower;tub shower Number of stairs to enter home 2 Stair Railings at Home entry - no rail Mobility Equipment Available 2 wheeled walker Patient Orientation Statement Patient Orientation Statement A&O x 4 Range of Motion RLE WFL LLE WFL Strength RLE WFL LLE WFL Functional Status Bed Mobility / Transfers The patient completed bed mobility & transfers with supervision. Patient demonstrated good log roll technique. Ambulation/Description of Gait The patient ambulated 120 feet with supervision & FWW. He completed 6 step ascend/descend x 4 repetitions (2 with supervision & walker support & 2 with Right UE hand held support). Balance Sitting normal Standing normal Walking normal Other Testing Sensation intact Patient Instructions Patient Instruction patient was instructed in and/or given a handout on log rolling technique;other (see comments) (Patient provided handout & verbal instructions for post procedure precautions ( no excessive bending or twisting but OK for ADLs & no lifting more than 5-10 lbs) as well as for post procedure LE exercises.) Spine Surgury Goals Perform bed mobility independently/supervision yes Perform sit to stand transfers with standby assistance/supervision yes Negotiate stairs with assistance if needed yes Plan Treatment Today bed mobility;transfer training;gait training;family instruction;patient instruction Today's Treatment Included The patient was provided post procedure education review of precautions, log roll technique, & LE exercises. He completed all exercises x 10 reptitions with good form. The patient completed bed mobility & transfers with supervision. He ambulated 120 feet with supervision & FWW. In addition, patient completed 6 step ascend/descend x 4 repetitions. Initial Evaluation/Screen Completed? yes Therapist Information License # [id number] General Information Pertinent History of Current Problem The patient is 73 year old male with sacroiliitis who underwent Right SI fixation. The patient was referred to physical therapy for post procedure education & mobility. Kuldip Galvan PT documented in this encounter [facility] 09-20-2023 Nurse Surgical operation note Discharged per stretcher to outpatient room 11 in stable condition and without complaints. Call light in reach. Pulse ox on; alarms/volume on. Stretcher in lowest position and brake on. [facility] 09-20-2023 Hospital Discharg e instructions Jazmin Valencia RN - 09/20/2023 12:[address] [facility] Post[facility] Home Going Instructions ACTIVITES: For Twelve Weeks: No heavy lifting, bending or twisting Do not lift anything that weighs more than 10 pounds. Do not push or pull anything Short frequent walks are good for you. Increase your activity gradually. If your pain increases and you get tired, rest. Do your exercises as instructed by the therapist. It is OK to use stairs INCISION CARE: Keep your incision covered until Post Op day # 2. Then remove your dressing and shower. It is okay to get your incision wet. Do not remove or pick glue from your incision, it will come off on its own. Do not soak in tub or pool until 30 days after your surgery. Ice continuously x 48 hours on operative site SELF CARE: If a lumbar brace is ordered, wear it when you are out of bed. When in bed, do not wear brace. If you have an incision on your low back, always wear a T-shirt tucked into your underwear to avoid rubbing of your underwear s elastic band against your incision. Wear lumbar brace over a cotton T shirt; you will get the brace at your follow up appointment. OTHER INFORMATION: You can be a passenger in a car anytime. You will have good days, and bad days. This is okay and is part of the healing process. You may experience numbness, tingling, or pain in areas that you did not have before surgery. Again, this is okay and is part of the healing process. Wean your narcotics, anti-inflammatory, and muscle relaxant medications rapidly. You must take an over the counter stool softener while taking narcotic pain medication to prevent constipation. Colace, Senna, Dulcolax, and Milk of Magnesia are some options. No smoking, nicotine products, or anti-inflammatory medications should be taken for 6 months if you have had a cervical, thoracic, or lumbar fusion. Your bone may not fuse or glue together if you don t follow this carefully. Please attend family, community and mu-ism events as soon as possible after your surgery. These functions help speed up your recovery. Please call the office: if you have any questions or concerns during your post op recovery at home ANESTHESIA PROTOCOL NEXT 24 HOURS.. NO DRIVING NO ALCOHOL NO SIGNING ANY LEGAL DOCUMENTS NO OPERATING ANY HEAVY EQUIPMENT YOU MAY DRIVE WHEN NO LONGER TAKING ANY NARCOTICS AND FEEL SAFE TO DO SO WHEN TO NOTIFY YOUR SURGEON: Your temperature is 101 degrees or over and does not respond to Tylenol You notice drainage, increased redness, or warmth at your incision You have increasing pain that is not relieved by rest or medication You have calf pain or unusual swelling in your legs If you have shortness of breath, chest pain, or abnormal coughing, CALL 911 FOLLOW UP APPOINTMENT: Call Dr. Hill s office: to schedule a follow up appointment for 2 weeks post-op.If you have hardware in you from the surgery, you will need x-rays prior to your appointment. When you make your follow up appointment with our office please let us know to which facility the x-ray prescription should be faxed. You had a dose of Banquete today at 1:02 pm while in the hospital; the earliest you may take your next dose is 7 Pm this evening. documented in this encounter [facility] 09-20-2023 Nurse Surgical operation note Denies nausea. States is warm enough. Demonstrates ability to deep breathe/cough effectively. [facility] 09-20-2023 Nurse Surgical operation note Patient transported to PACU via cart by DONNYRN and LINA AVILA. Monitors applied and report given to MELIDA JIMENEZ. [facility] 09-20-2023 Surgery Postoperative evaluation and management note POST OPERATIVE/PROCEDURE NOTE Angela Rodrigues ([id number]) SURGEON Surgeon(s) and Role: * Julián Hill MD - Primary FIELD REVIEWER Skye ANESTHESIOLOGIST MS SQL DBA: MAG Wick SURGICAL STAFF Office Inspector: Rae Hercules RN Scrub Person: Monica Morel Char Filter Operator Helper: Lila Garrett RN PROCEDURE PERFORMED Procedure(s) (LRB): ARTHRODESIS SACROILIAC JOINT MINIMALLY INVASIVE W/ TRANSFIXING DEVICE (Right) FLUOROSCOPY IN OR (Right) PRIMARY CLOSURE Yes ANESTHESIA (type of) General ESTIMATED BLOOD LOSS Minimal DRAINS None BLOOD PRODUCTS None FLUIDS No intake or output data in the 24 hours ending 09/20/23 1142 PRE OPERATIVE DIAGNOSIS Sacroiliitis [M46.1] POST OPERATIVE DIAGNOSIS Post-Op Diagnosis Codes: * Sacroiliitis [M46.1] FINDINGS No significant abnormalities CONDITION OF PATIENT Stable COMPLICATIONS None GRAFTS AND/OR IMPLANTS See OR Nursing Documentation SPECIMENS No specimen sent * No specimens in log * Julián Hill MD September 20, 2023 11:42 AM [facility] 09-20-2023 Miscellaneous Notes Formattin g of this note might be different from the original. POST OPERATIVE/PROCEDURE NOTE Angela Rodrigues ([id number]) SURGEON Surgeon(s) and Role: * Julián Hill MD - Primary FIELD REVIEWER Skye ANESTHESIKRISTIN MS SQL DBA: MAG Wick SURGICAL STAFF Office Inspector: Rae Hercules RN Scrub Person: Monica Morel Char Filter Operator Helper: Lila Garrett RN PROCEDURE PERFORMED Procedure(s) (LRB): ARTHRODESIS SACROILIAC JOINT MINIMALLY INVASIVE W/ TRANSFIXING DEVICE (Right) FLUOROSCOPY IN OR (Right) PRIMARY CLOSURE Yes ANESTHESIA (type of) General ESTIMATED BLOOD LOSS Minimal DRAINS None BLOOD PRODUCTS None FLUIDS No intake or output data in the 24 hours ending 09/20/23 1142 PRE OPERATIVE DIAGNOSIS Sacroiliitis [M46.1] POST OPERATIVE DIAGNOSIS Post-Op Diagnosis Codes: * Sacroiliitis [M46.1] FINDINGS No significant abnormalities CONDITION OF PATIENT Stable COMPLICATIONS None GRAFTS AND/OR IMPLANTS See OR Nursing Documentation SPECIMENS No specimen sent * No specimens in log * Julián Hill MD September 20, 2023 11:42 AM POST OPERATIVE/PROCEDURE NOTE Angela Rodrigues ([id number]) SURGEON Surgeon(s) and Role: * Julián Hill MD - Primary FIELD REVIEWER Skye ANESTHESIOLOGIST MS SQL DBA: MAG Wick SURGICAL STAFF Office Inspector: Rae Hercules RN Scrub Person: Corolla Morel Char Filter Operator Helper: Lila Garrett RN PROCEDURE PERFORMED Procedure(s) (LRB): ARTHRODESIS SACROILIAC JOINT MINIMALLY INVASIVE W/ TRANSFIXING DEVICE (Right) FLUOROSCOPY IN OR (Right) PRIMARY CLOSURE Yes ANESTHESIA (type of) General ESTIMATED BLOOD LOSS Minimal DRAINS None BLOOD PRODUCTS None FLUIDS No intake or output data in the 24 hours ending 09/20/23 1013 PRE OPERATIVE DIAGNOSIS Sacroiliitis [M46.1] POST OPERATIVE DIAGNOSIS Post-Op Diagnosis Codes: * Sacroiliitis [M46.1] FINDINGS No significant abnormalities CONDITION OF PATIENT stable COMPLICATIONS None GRAFTS AND/OR IMPLANTS See OR Nursing Documentation SPECIMENS No specimen sent * No specimens in log * Julián Hill MD September 20, 2023 10:13 AM documented in this [facility] 09-20-2023 Surgery Postoperative evaluation and management note POST OPERATIVE/PROCEDURE NOTE Angela Rodrigues ([id number]) SURGEON Surgeon(s) and Role: * Julián Hill MD - Primary FIELD REVIEWER Skye ANESTHESIKRISTIN MS SQL DBA: MAG Wick SURGICAL STAFF Office Inspector: Rae Hercules RN Scrub Person: Monica Morel Char Filter Operator Helper: Lila Garrett RN PROCEDURE PERFORMED Procedure(s) (LRB): ARTHRODESIS SACROILIAC JOINT MINIMALLY INVASIVE W/ TRANSFIXING DEVICE (Right) FLUOROSCOPY IN OR (Right) PRIMARY CLOSURE Yes ANESTHESIA (type of) General ESTIMATED BLOOD LOSS Minimal DRAINS None BLOOD PRODUCTS None FLUIDS No intake or output data in the 24 hours ending 09/20/23 1013 PRE OPERATIVE DIAGNOSIS Sacroiliitis [M46.1] POST OPERATIVE DIAGNOSIS Post-Op Diagnosis Codes: * Sacroiliitis [M46.1] FINDINGS No significant abnormalities CONDITION OF PATIENT stable COMPLICATIONS None GRAFTS AND/OR IMPLANTS See OR Nursing Documentation SPECIMENS No specimen sent * No specimens in log * Julián Hill MD September 20, 2023 10:13 AM [facility] 06-15-2023 History of Presen t illness Narrative The patient is in today for his R SI joint. He states his pain is achy. He states he finished an oral steroid. His last injection in 03/20/23 helped with his pain for 3 days and dulled his pain foe 3 weeks. He states his pain is a 3/10 in the office and a 6/10 when he is active. Associated Order(s): LARGE JOINT/BURSA INJECTION AND/OR ASPIRATION Post-Procedure Diagnose(s): Osteoarthritis of both sacroiliac joints; Pain of both sacroiliac joints LARGE JOINT/BURSA INJECTION AND/OR ASPIRATION Date/Time: 06/15/2023 1:40 PM Performed by: Charlotte Mane MD Authorized by: Charlotte Mane MD Supporting Documentation Indications: pain and osteoarthritis Procedure Details: Location: sacroiliac - R sacroiliac joint Local Anesthetic: bupivacaine 0.5% and lidocaine 1% Total Local Anesthetic: 4 mLs Guidance: ultrasound Ultrasound probe size: 4 mHz curvilinear Images were saved electronically. Needle size: 22 G Needle Length: 4.0 inch Approach: posterior Medication Verification: I have personally verified and performed the final check of the medication(s) used in this procedure prior to administration. The following items were included during the verification process for medication(s) administered: drug name, strength, volume, expiration, physical integrity and appearance of the medication(s). Medications administered: 1 mL bupivacaine 0.5 %; 2 mL triamcinolone 40 MG/ML; 4 mL Lidocaine 10 mg/mL; 5 mL Sodium chloride (PF) 0.9 %; 4 mg dexAMETHasone 4 MG/ML; 25 mg Sodium Hyaluronate (Viscosup) 25 MG/2.5ML Patient tolerance: patient tolerated the procedure well with no immediate complications Comments Medical Decision Making At today's visit I reviewed the history, physical examination, and previous pertinent imaging. We weighed the options of whether or not to proceed with an injection today based off of these findings and discussed alternatives. After this discussion, I felt that the injection was indicated and we elected to proceed. This evaluation and management service was a separate and identifiable service apart from the injection. Pre-Procedure Details The attending physician was present for the entire procedure. Consent: Consent was obtained prior to the procedure after discussion of the risks, benefits and alternatives, and expected outcomes were discussed with the patient. The possibilities of reaction to medication, bleeding, infection, the need for additional procedures, failure to diagnosis a condition, and creating a complication requiring operation were discussed with the patient. The patient concurred with the proposed plan, giving consent. Preparation: Patient was prepped in the usual sterile fashion. The patient was prepped with Chloraprep. Patient counseled on expected outcome and continued treatment and healing process. Patient tolerated the procedure well and was discharged in good condition with post-procedure instructions and anticipatory guidance regarding possible adverse reactions after the procedure including but not limited to infection, injection site flare reaction, allergic reaction. If corticosteroids were used then specifically the patient may develop hyperglycemia, facial flushing, heart palpitations amongst many other side effects associated with corticosteroids. Patient reports 100% relief while anaesthetized. The patient is in today for his R SI joint. He states his pain is achy. He states he finished an oral steroid. His last injection in 03/20/23 helped with his pain for 3 days and dulled his pain foe 3 weeks. He states his pain is a 3/10 in the office and a 6/10 when he is active. LARGE JOINT/BURSA INJECTION AND/OR ASPIRATION Date/Time: 06/15/2023 1:40 PM Performed by: Charlotte Mane MD Authorized by: Charlotte Mane MD Supporting Documentation Indications: pain and osteoarthritis Procedure Details: Location: sacroiliac - R sacroiliac joint Local Anesthetic: bupivacaine 0.5% and lidocaine 1% Total Local Anesthetic: 4 mLs Guidance: ultrasound Ultrasound probe size: 4 mHz curvilinear Images were saved electronically. Needle size: 22 G Needle Length: 4.0 inch Approach: posterior Medication Verification: I have personally verified and performed the final check of the medication(s) used in this procedure prior to administration. The following items were included during the verification process for medication(s) administered: drug name, strength, volume, expiration, physical integrity and appearance of the medication(s). Medications administered: 1 mL bupivacaine 0.5 %; 2 mL triamcinolone 40 MG/ML; 4 mL Lidocaine 10 mg/mL; 5 mL Sodium chloride (PF) 0.9 %; 4 mg dexAMETHasone 4 MG/ML; 25 mg Sodium Hyaluronate (Viscosup) 25 MG/2.5ML Patient tolerance: patient tolerated the procedure well with no immediate complications Comments Medical Decision Making At today's visit I reviewed the history, physical examination, and previous pertinent imaging. We weighed the options of whether or not to proceed with an injection today based off of these findings and discussed alternatives. After this discussion, I felt that the injection was indicated and we elected to proceed. This evaluation and management service was a separate and identifiable service apart from the injection. Pre-Procedure Details The attending physician was present for the entire procedure. Consent: Consent was obtained prior to the procedure after discussion of the risks, benefits and alternatives, and expected outcomes were discussed with the patient. The possibilities of reaction to medication, bleeding, infection, the need for additional procedures, failure to diagnosis a condition, and creating a complication requiring operation were discussed with the patient. The patient concurred with the proposed plan, giving consent. Preparation: Patient was prepped in the usual sterile fashion. The patient was prepped with Chloraprep. Patient counseled on expected outcome and continued treatment and healing process. Patient tolerated the procedure well and was discharged in good condition with post-procedure instructions and anticipatory guidance regarding possible adverse reactions after the procedure including but not limited to infection, injection site flare reaction, allergic reaction. If corticosteroids were used then specifically the patient may develop hyperglycemia, facial flushing, heart palpitations amongst many other side effects associated with corticosteroids. Patient reports 100% relief while anaesthetized. I have reviewed, edited and added to the above note and agree with those findings. Additions if any: Charlotte Mane MD, [facility] [employer]acking [employer] - [facility] documented in this encounter [facility] 06-15-2023 Instructions Jose Delong - 06/15/2023 1:40 PM EDT Patient counseled on expected outcome and continued treatment and healing process. Patient tolerated the procedure well and was discharged in good condition with post-procedure instructions and anticipatory guidance regarding possible adverse reactions after the procedure including but not limited to infection, injection site flare reaction, allergic reaction. If corticosteroids were used then specifically the patient may develop hyperglycemia, facial flushing, heart palpitations amongst many other side effects associated with corticosteroids. documented in this encounter [facility] 04-23-2023 History of Presen t illness Narrative HISTORY OF PRESENT ILLNESS- Angela Rodrigues is a 73 y.o. male who comes in with the following complaint(s): Vocal cord assessment. Referred by Dr. Hill CHIEF COMPLAINT: Angela Rodrigues presents to the office for Chief Complaint Patient presents with New Patient Vocal cord assessment HISTORY OF PRESENT ILLNESS- Angela Rodrigues is a 73 y.o. male who comes in with the following complaint(s): Vocal cord assessment. Referred by Dr. Hill for vocal cord movement assessment prior to cervical spine surgery 05-10-23. Patient has also had sinus issues the past week. ROS- Pertinent items are noted in HPI. PHYSICAL EXAM/VITALS: Vitals: 04/23/23 1325 Temp: 97.4 F (36.3 C) Physical Exam Vitals and nursing note reviewed. Constitutional: Appearance: Normal appearance. He is not ill-appearing. HENT: Head: Normocephalic and atraumatic. Right Ear: External ear normal. Left Ear: External ear normal. Nose: Nose normal. Eyes: General: Right eye: No discharge. Left eye: No discharge. Cardiovascular: Rate and Rhythm: Normal rate. Abdominal: General: There is no distension. Musculoskeletal: General: Normal range of motion. Cervical back: Normal range of motion. Skin: General: Skin is warm and dry. Capillary Refill: Capillary refill takes less than 2 seconds. Neurological: General: No focal deficit present. Mental Status: He is alert and oriented to person, place, and time. Psychiatric: Mood and Affect: Mood normal. All previous testing/results have been reviewed. ASSESSMENT/IMPRESSION: ICD-10-CM 1. Hoarseness R49.0 PLAN: Vocal cord functionality assessed. Patient is cleared for surgery. documented in this encounter [facility] 04-23-2023 Procedure note Associated Ord er(s): [place] LARYNGOSCOPY FLEXIBLE DIAGNOSTIC The flexible laryngoscope was used to evaluate the patient's upper airway. The base of the tongue and the larynx appeared to be within normal limits. The vocal cords are normal and they are moving symmetrical. [facility] 04-23-2023 Procedure note Associated Ord er(s): IL LARYNGOSCOPY FLEXIBLE DIAGNOSTIC The flexible laryngoscope was used to evaluate the patient's upper airway. The base of the tongue and the larynx appeared to be within normal limits. The vocal cords are normal and they are moving symmetrical. documented in this encounter [facility] 04-20-2023 History of Presen t illness Narrative Referred by: MD Scott Chief Complaint Patient presents with Lower Back - Pain, Follow-up The patient is in today for his R SI joint and his L foot. He states his pain in his R SI joint is burning down bilateral legs and uncomfortable. At his last visit on 03/20/23 he received a R SI joint injection. He states the injection is fading but he had no pain for the first 3 days and he could sleep with limited pain for about 3 weeks. He states his pain is 25-30% better after the injection. H e states his pain is a 2/10 and a 6/10 when he is active. He states the day after the injection he was moving dirt and had a sharp pain in his SI joint. The patient states he is having a cervical disc replacement with . The patient is also in for his L foot with an achy pain . He states he is in need of a L metatarsal pad because he bought new shoes and it does not fit in his shoe. Location: R SI joint and L foot Quality: burning down bilateral legs, uncomfortable, L foot- ache Duration: years but worse in August NSAIDs? Advil Analgesics? no Other pain modalities? Flexeril, heat Physical therapy? Previously November 2022 Xrays? 01/22/23 R knee MRI?L foot Jul 2022 with and without contrast , 01/22/23 lumbar spine, 01/31/23 bilateral hips with pelvis Patient occupation, sport or other pertinent activity: retired Treatment performed or prescribed at last visit? 03/20/23 R SI joint injection Response to treatment since last visit? He states the injection is fading but he had no pain for the first 3 days and he could sleep with limited pain for about 3 weeks. He states his pain is 25-30% better after the injection. Current Outpatient Medications: amLODIPine 5 MG Tab tablet, Take 5 mg by mouth daily. Every MORNING, Disp: , Rfl: Cholecalciferol (VITAMIN D3 PO), Take 4,000 Units by mouth daily. , Disp: , Rfl: Coenzyme Q10 (CO Q10) 100 MG Cap, Take 100 mg by mouth daily., Disp: , Rfl: cyclobenzaprine 10 MG Tab tablet, Take 10 mg by mouth as needed for Muscle spasms (FLEXERIL)., Disp: , Rfl: Ibuprofen (ADVIL PO), Take 600 mg by mouth as needed., Disp: , Rfl: losartan 100 MG Tab, Take 100 mg by mouth daily. At BEDTIME, Disp: , Rfl: Omeprazole Magnesium (PRILOSEC OTC PO), Take 20 mg by mouth daily. Every MORNING, Disp: , Rfl: potassium citrate 10 MEQ (1080 MG) Tab CR, Take 10 mEq by mouth daily. Every NIGHT, Disp: , Rfl: Tamsulosin HCl 0.4 MG capsule, Take 1 capsule by mouth at bedtime., Disp: , Rfl: traMADol 50 MG Tab tablet, Take 1 tablet by mouth every 6 hours as needed for Moderate Pain for up to 14 days., Disp: 56 tablet, Rfl: 0 No family history on file. Social History Tobacco Use Smoking status: Former Types: Cigarettes Quit date: 10/22/2009 Years since quittin.5 Smokeless tobacco: Never Substance Use Topics Alcohol use: Never Drug use: Never Past Surgical History: Procedure Laterality Date DECOMPRESSION LAMINOTOMY W/ EXCISION INTERVERTEBRAL DISC LUMBAR OPEN E Left 06/12/2019 Laterality: Left; Surgeon: Julián Hill MD; Location: [facility] OR MICROSURGICAL TECHNIQUES W/ OPERATING MICROSCOPE ADD-ON PX Left 06/12/2019 Laterality: Left; Surgeon: Julián Hill MD; Location: [facility] OR GUIDANCE FLUOROSCOPIC NEEDLE OR CATHETER PLACEMENT FOR SPINE INJECTION ADD-ON PX 06/12/2019 Surgeon: Julián Hill MD; Location: [facility] OR INJECTION EPIDURAL OR SUBARACHNOID LUMBAR/SACRAL W/O IMAGE GUIDANCE N/A 04/17/2019 Laterality: N/A; Surgeon: Julián Hill MD; Location: [facility] OR BLADDER SURGERY 2009 bladder tumor removed DISCECTOMY ANTERIOR CERVICAL 2000 C5-C6-C7 COLONOSCOPY DIAGNOSTIC EGD DIAGNOSTIC There were no vitals filed for this visit. Constitutional No fevers, chills or sweats, unintentional weight gain or weight loss, night pain, or night sweats except as per HPI. Cardiovascular No recent chest pain or palpitations. No claudication. No new or worsening lower extremity edema except as per HPI. Respiratory No new or worsening shortness of breath, dyspnea on exertion, orthopnea or paroxysmal nocturnal dyspnea except as per HPI. Gastrointestinal No recent heartburn or stomach upset, no history of ulcers except as per HPI. Musculoskeletal No joint pain, stiffness, or weakness except as per HPI. Endocrine No polyphagia, polydypsia, or polyuria. Hematologic No known or recent anemia, no excessive bleeding. Rheumatologic No history or currently active autoimmune or rheumatologic disease except as per HPI. Integumentary No new or relevant rashes or lesions except as per HPI. Neurologic No numbness, tingling, or weakness into her distal extremities except as per HPI. Constitutional Normal No acute distress. Well nourished. Well developed. Head/Face Normal Facial features - Normal. Eyebrows - Normal. Skull - Normal. Hair and scalp - Normal. Eyes Normal General - Right: Normal, Left: Normal. Lids/external - Right: Normal, Left: Normal. Conjunctiva - Right: Normal, Left: Normal. Ears Normal Inspection - Right: Normal, Left: Normal. Pinna - Right: Normal, Left: Normal. Nasopharynx Normal External nose - Normal. Nares - Right: Normal. Nasal Mucosa - Normal. Lips/teeth/gums - Normal. Buccal mucosa - Normal. Neck Exam Normal Inspection - Normal. Range of motion - Normal. Neck Exam Comments Supple. Respiratory Normal Inspection - Normal. Cough - Absent. Effort - Normal. Cardiovascular Normal Heart rate - Regular rate. Vascular Normal Pulses - Radial: Normal, Brachial: Normal, Dorsalis pedis: Normal, Posterior tibial: Normal. Capillary refill - Less than 2 seconds. Skin * Rash - Description: none. Extremity Normal No Edema. No Calf tenderness. Diabetic Foot Screen Normal Pulses - Dorsalis pedis: Normal, Posterior tibial: Normal. Neurological Normal Level of consciousness - Normal. Orientation - Normal. Memory - Normal. Psychiatric Normal No agitation. Appropriate mood and affect. Appropriate affect. Normal insight. Normal judgment. Interval exam: Lumbar spine Inspection: No erythema, ecchymosis, swelling or deformity. No open wounds. [facility] MRI Lumbar reviewed from 01/22/[address] Mane 03/20/23 History obtained from patient. ASSESSMENT and PLAN: 1. Osteoarthritis of both sacroiliac joints The evidence based treatment of ostearthritis was discussed today and handouts were given. Stepwise approach to treatment includes the following: Supplements - ASU 300mg for large joints, glucosamine/chondroitin for small joints, omega-3-FA's for heart health and some evidence for improvement in joint pain Medications - acetaminophen can be taken daily, not to exceed 3000mg in day; NSAIDs can be more effective at pain relief, however come with potentially consequences if taken daily including but not limited to gastric toxicity, GI bleeds, renal damage and chronic kidney disease, increased risk of heart attack. Bracing - depends on the case Exercise and physical therapy - recommended to maintain strength and range of motion of the affected joint; some insurances require PT prior to authorization for some injecitons and/or surgery. Injections - Corticosteroids are good to calm down inflammation, the gel medications (hyaluronic acid) are longer lasting and healthy, and PRP (platelet rich plasma) is a newer option that is healthy for the joint but considered experimental by insurances and so they will not cover it. Surgery - arthroscopic surgery no longer recommended as treatment for OA, although some specific cases may still benefit. The gold standard and definitive treatment for OA is joint replacement (knees, hips, shoulders, etc.) vs. joint fusion (sacroiliac joint, small joints, some intermediate sized joints). 2. Pain of both sacroiliac joints 3. Spondylolisthesis of lumbar region 4. Spinal stenosis, lumbar region, with neurogenic claudication I spent approximately 25 minutes in seeing the patient, counseling about this problem and discussing the different treatment options available, reviewing the chart, imaging and preparing documentation. We discussed how to increase activity level. We discussed and demonstrated exercises as well. After exam, review of images, and discussion. Angela shown some improvement. I have discussed the option of hyaluronic acid injection. Angela and his has decided they would like to go ahead and schedule the right sacroiliac joint injection with the Supartz. Angela may call the office with any questions or concerns. Referrals: None Medications prescribed today: [facility] at [facility] Drug Follow up plan: Sports US Guided right sacroiliac joint injection with Sup[facility] and [employer] Severity of problem(s): Mild Risk of morbidity or complication from the condition and/or additional testing or treatment: Low Referred by: MD Scott Chief Complaint Patient presents with Lower Back - Pain, Follow-up The patient is in today for his R SI joint and his L foot. He states his pain in his R SI joint is burning down bilateral legs and uncomfortable. At his last visit on 03/20/23 he received a R SI joint injection. He states the injection is fading but he had no pain for the first 3 days and he could sleep with limited pain for about 3 weeks. He states his pain is 25-30% better after the injection. H e states his pain is a 2/10 and a 6/10 when he is active. He states the day after the injection he was moving dirt and had a sharp pain in his SI joint. The patient states he is having a cervical disc replacement with . The patient is also in for his L foot with an achy pain . He states he is in need of a L metatarsal pad because he bought new shoes and it does not fit in his shoe. Location: R SI joint and L foot Quality: burning down bilateral legs, uncomfortable, L foot- ache Duration: years but worse in August NSAIDs? Advil Analgesics? no Other pain modalities? Flexeril, heat Physical therapy? Previously November 2022 Xrays? 01/22/23 R knee MRI?L foot Jul 2022 with and without contrast , 01/22/23 lumbar spine, 01/31/23 bilateral hips with pelvis Patient occupation, sport or other pertinent activity: retired Treatment performed or prescribed at last visit? 03/20/23 R SI joint injection Response to treatment since last visit? He states the injection is fading but he had no pain for the first 3 days and he could sleep with limited pain for about 3 weeks. He states his pain is 25-30% better after the injection. Current Outpatient Medications: amLODIPine 5 MG Tab tablet, Take 5 mg by mouth daily. Every MORNING, Disp: , Rfl: Cholecalciferol (VITAMIN D3 PO), Take 4,000 Units by mouth daily. , Disp: , Rfl: Coenzyme Q10 (CO Q10) 100 MG Cap, Take 100 mg by mouth daily., Disp: , Rfl: cyclobenzaprine 10 MG Tab tablet, Take 10 mg by mouth as needed for Muscle spasms (FLEXERIL)., Disp: , Rfl: Ibuprofen (ADVIL PO), Take 600 mg by mouth as needed., Disp: , Rfl: losartan 100 MG Tab, Take 100 mg by mouth daily. At BEDTIME, Disp: , Rfl: Omeprazole Magnesium (PRILOSEC OTC PO), Take 20 mg by mouth daily. Every MORNING, Disp: , Rfl: potassium citrate 10 MEQ (1080 MG) Tab CR, Take 10 mEq by mouth daily. Every NIGHT, Disp: , Rfl: Tamsulosin HCl 0.4 MG capsule, Take 1 capsule by mouth at bedtime., Disp: , Rfl: traMADol 50 MG Tab tablet, Take 1 tablet by mouth every 6 hours as needed for Moderate Pain for up to 14 days., Disp: 56 tablet, Rfl: 0 No family history on file. Social History Tobacco Use Smoking status: Former Types: Cigarettes Quit date: 10/22/2009 Years since quittin.5 Smokeless tobacco: Never Substance Use Topics Alcohol use: Never Drug use: Never Past Surgical History: Procedure Laterality Date DECOMPRESSION LAMINOTOMY W/ EXCISION INTERVERTEBRAL DISC LUMBAR OPEN E Left 06/12/2019 Laterality: Left; Surgeon: Julián Hill MD; Location: [facility] OR MICROSURGICAL TECHNIQUES W/ OPERATING MICROSCOPE ADD-ON PX Left 06/12/2019 Laterality: Left; Surgeon: Julián Hill MD; Location: [facility] OR GUIDANCE FLUOROSCOPIC NEEDLE OR CATHETER PLACEMENT FOR SPINE INJECTION ADD-ON PX 06/12/2019 Surgeon: Julián Hill MD; Location: [facility] OR INJECTION EPIDURAL OR SUBARACHNOID LUMBAR/SACRAL W/O IMAGE GUIDANCE N/A 04/17/2019 Laterality: N/A; Surgeon: Julián Hill MD; Location: [facility] OR BLADDER SURGERY 2009 bladder tumor removed DISCECTOMY ANTERIOR CERVICAL 2000 C5-C6-C7 COLONOSCOPY DIAGNOSTIC EGD DIAGNOSTIC There were no vitals filed for this visit. Constitutional No fevers, chills or sweats, unintentional weight gain or weight loss, night pain, or night sweats except as per HPI. Cardiovascular No recent chest pain or palpitations. No claudication. No new or worsening lower extremity edema except as per HPI. Respiratory No new or worsening shortness of breath, dyspnea on exertion, orthopnea or paroxysmal nocturnal dyspnea except as per HPI. Gastrointestinal No recent heartburn or stomach upset, no history of ulcers except as per HPI. Musculoskeletal No joint pain, stiffness, or weakness except as per HPI. Endocrine No polyphagia, polydypsia, or polyuria. Hematologic No known or recent anemia, no excessive bleeding. Rheumatologic No history or currently active autoimmune or rheumatologic disease except as per HPI. Integumentary No new or relevant rashes or lesions except as per HPI. Neurologic No numbness, tingling, or weakness into her distal extremities except as per HPI. Constitutional Normal No acute distress. Well nourished. Well developed. Head/Face Normal Facial features - Normal. Eyebrows - Normal. Skull - Normal. Hair and scalp - Normal. Eyes Normal General - Right: Normal, Left: Normal. Lids/external - Right: Normal, Left: Normal. Conjunctiva - Right: Normal, Left: Normal. Ears Normal Inspection - Right: Normal, Left: Normal. Pinna - Right: Normal, Left: Normal. Nasopharynx Normal External nose - Normal. Nares - Right: Normal. Nasal Mucosa - Normal. Lips/teeth/gums - Normal. Buccal mucosa - Normal. Neck Exam Normal Inspection - Normal. Range of motion - Normal. Neck Exam Comments Supple. Respiratory Normal Inspection - Normal. Cough - Absent. Effort - Normal. Cardiovascular Normal Heart rate - Regular rate. Vascular Normal Pulses - Radial: Normal, Brachial: Normal, Dorsalis pedis: Normal, Posterior tibial: Normal. Capillary refill - Less than 2 seconds. Skin * Rash - Description: none. Extremity Normal No Edema. No Calf tenderness. Diabetic Foot Screen Normal Pulses - Dorsalis pedis: Normal, Posterior tibial: Normal. Neurological Normal Level of consciousness - Normal. Orientation - Normal. Memory - Normal. Psychiatric Normal No agitation. Appropriate mood and affect. Appropriate affect. Normal insight. Normal judgment. Interval exam: Lumbar spine Inspection: No erythema, ecchymosis, swelling or deformity. No open wounds. NVID MRI Lumbar reviewed from 01/22/[address] Mane 03/20/23 History obtained from patient. ASSESSMENT and PLAN: 1. Osteoarthritis of both sacroiliac joints The evidence based treatment of ostearthritis was discussed today and handouts were given. Stepwise approach to treatment includes the following: Supplements - ASU 300mg for large joints, glucosamine/chondroitin for small joints, omega-3-FA's for heart health and some evidence for improvement in joint pain Medications - acetaminophen can be taken daily, not to exceed 3000mg in day; NSAIDs can be more effective at pain relief, however come with potentially consequences if taken daily including but not limited to gastric toxicity, GI bleeds, renal damage and chronic kidney disease, increased risk of heart attack. Bracing - depends on the case Exercise and physical therapy - recommended to maintain strength and range of motion of the affected joint; some insurances require PT prior to authorization for some injecitons and/or surgery. Injections - Corticosteroids are good to calm down inflammation, the gel medications (hyaluronic acid) are longer lasting and healthy, and PRP (platelet rich plasma) is a newer option that is healthy for the joint but considered experimental by insurances and so they will not cover it. Surgery - arthroscopic surgery no longer recommended as treatment for OA, although some specific cases may still benefit. The gold standard and definitive treatment for OA is joint replacement (knees, hips, shoulders, etc.) vs. joint fusion (sacroiliac joint, small joints, some intermediate sized joints). 2. Pain of both sacroiliac joints 3. Spondylolisthesis of lumbar region 4. Spinal stenosis, lumbar region, with neurogenic claudication I spent approximately 25 minutes in seeing the patient, counseling about this problem and discussing the different treatment options available, reviewing the chart, imaging and preparing documentation. We discussed how to increase activity level. We discussed and demonstrated exercises as well. After exam, review of images, and discussion. Angela shown some improvement. I have discussed the option of hyaluronic acid injection. Angela and his has decided they would like to go ahead and schedule the right sacroiliac joint injection with the Supartz. Angela may call the office with any questions or concerns. Referrals: None Medications prescribed today: [facility] at [facility] Drug Follow up plan: Sports US Guided right sacroiliac joint injection with Supartz and [employer] Severity of problem(s): Mild Risk of morbidity or complication from the condition and/or additional testing or treatment: Low I have reviewed, edited and added to the above note and agree with those findings. Additions if any: Charlotte Mane MD, [facility] [employer] - [facility] documented in this encounter [facility] [employer] [facility] 04-20-2023 Instructions Jose Delong - 04/20/2023 9:40 AM EDT The evidence based treatment of ostearthritis was discussed today and handouts were given. Stepwise approach to treatment includes the following: Supplements - ASU 300mg for large joints, glucosamine/chondroitin for small joints, omega-3-FA's for heart health and some evidence for improvement in joint pain Medications - acetaminophen can be taken daily, not to exceed 3000mg in day; NSAIDs can be more effective at pain relief, however come with potentially consequences if taken daily including but not limited to gastric toxicity, GI bleeds, renal damage and chronic kidney disease, increased risk of heart attack. Bracing - depends on the case Exercise and physical therapy - recommended to maintain strength and range of motion of the affected joint; some insurances require PT prior to authorization for some injecitons and/or surgery. Injections - Corticosteroids are good to calm down inflammation, the gel medications (hyaluronic acid) are longer lasting and healthy, and PRP (platelet rich plasma) is a newer option that is healthy for the joint but considered experimental by insurances and so they will not cover it. Surgery - arthroscopic surgery no longer recommended as treatment for OA, although some specific cases may still benefit. The gold standard and definitive treatment for OA is joint replacement (knees, hips, shoulders, etc.) vs. joint fusion (sacroiliac joint, small joints, some intermediate sized joints). documented in this encounter [facility] 03-20-2023 History of Presen t illness Narrative Associated Order(s): LARGE JOINT/BURSA INJECTION AND/OR ASPIRATION Post-Procedure Diagnose(s): Osteoarthritis of both sacroiliac joints 73 year old male comes in today for lower back, right sacroiliac joint pain. Patient burning and then goes numb. Patient will then sit down and then the pain will go away. Patient would rates his pain 4/10 at rest and 9/10 while active. At last visit on 02/09/2023 Scheduled Sports US Guided Right sacroiliac joint injection visit. Dispensed left foot metatarsal footpad. Patient states that overall her is doing the same. Patient states that his left foot is doing better since using the metatarsal pad. LARGE JOINT/BURSA INJECTION AND/OR ASPIRATION Date/Time: 03/20/2023 1:40 PM Performed by: Charlotte Mane MD Authorized by: Charlotte Mane MD Supporting Documentation Indications: pain and osteoarthritis Procedure Details: Location: sacroiliac - R sacroiliac joint Local Anesthetic: bupivacaine 0.5% and lidocaine 1% Total Local Anesthetic: 4 mLs Guidance: ultrasound Ultrasound probe size: 4 mHz curvilinear Images were saved electronically. Needle size: 22 G Needle Length: 4.0 inch Approach: posterior Medication Verification: I have personally verified and performed the final check of the medication(s) used in this procedure prior to administration. The following items were included during the verification process for medication(s) administered: drug name, strength, volume, expiration, physical integrity and appearance of the medication(s). Medications administered: 1 mL bupivacaine 0.5 %; 2 mL triamcinolone 40 MG/ML; 4 mL lidocaine 10 mg/mL; 5 mL sodium chloride (PF) 0.9 %; 4 mg dexAMETHasone 4 MG/ML Patient tolerance: patient tolerated the procedure well with no immediate complications Comments Medical Decision Making At today's visit I reviewed the history, physical examination, and previous pertinent imaging. We weighed the options of whether or not to proceed with an injection today based off of these findings and discussed alternatives. After this discussion, I felt that the injection was indicated and we elected to proceed. This evaluation and management service was a separate and identifiable service apart from the injection. Pre-Procedure Details The attending physician was present for the entire procedure. Consent: Consent was obtained prior to the procedure after discussion of the risks, benefits and alternatives, and expected outcomes were discussed with the patient. The possibilities of reaction to medication, bleeding, infection, the need for additional procedures, failure to diagnosis a condition, and creating a complication requiring operation were discussed with the patient. The patient concurred with the proposed plan, giving consent. Preparation: Patient was prepped in the usual sterile fashion. The patient was prepped with Chloraprep. Patient counseled on expected outcome and continued treatment and healing process. Patient tolerated the procedure well and was discharged in good condition with post-procedure instructions and anticipatory guidance regarding possible adverse reactions after the procedure including but not limited to infection, injection site flare reaction, allergic reaction. If corticosteroids were used then specifically the patient may develop hyperglycemia, facial flushing, heart palpitations amongst many other side effects associated with corticosteroids. Patient reports 100% pain relief while anaesthetized at right sacroiliac joint. Still pain at knee walking, sit to stand, and lunge. 73 year old male comes in today for lower back, right sacroiliac joint pain. Patient burning and then goes numb. Patient will then sit down and then the pain will go away. Patient would rates his pain 4/10 at rest and 9/10 while active. At last visit on 02/09/2023 Scheduled Sports US Guided Right sacroiliac joint injection visit. Dispensed left foot metatarsal footpad. Patient states that overall her is doing the same. Patient states that his left foot is doing better since using the metatarsal pad. LARGE JOINT/BURSA INJECTION AND/OR ASPIRATION Date/Time: 03/20/2023 1:40 PM Performed by: Charlotte Mane MD Authorized by: Charlotte Mane MD Supporting Documentation Indications: pain and osteoarthritis Procedure Details: Location: sacroiliac - R sacroiliac joint Local Anesthetic: bupivacaine 0.5% and lidocaine 1% Total Local Anesthetic: 4 mLs Guidance: ultrasound Ultrasound probe size: 4 mHz curvilinear Images were saved electronically. Needle size: 22 G Needle Length: 4.0 inch Approach: posterior Medication Verification: I have personally verified and performed the final check of the medication(s) used in this procedure prior to administration. The following items were included during the verification process for medication(s) administered: drug name, strength, volume, expiration, physical integrity and appearance of the medication(s). Medications administered: 1 mL bupivacaine 0.5 %; 2 mL triamcinolone 40 MG/ML; 4 mL lidocaine 10 mg/mL; 5 mL sodium chloride (PF) 0.9 %; 4 mg dexAMETHasone 4 MG/ML Patient tolerance: patient tolerated the procedure well with no immediate complications Comments Medical Decision Making At today's visit I reviewed the history, physical examination, and previous pertinent imaging. We weighed the options of whether or not to proceed with an injection today based off of these findings and discussed alternatives. After this discussion, I felt that the injection was indicated and we elected to proceed. This evaluation and management service was a separate and identifiable service apart from the injection. Pre-Procedure Details The attending physician was present for the entire procedure. Consent: Consent was obtained prior to the procedure after discussion of the risks, benefits and alternatives, and expected outcomes were discussed with the patient. The possibilities of reaction to medication, bleeding, infection, the need for additional procedures, failure to diagnosis a condition, and creating a complication requiring operation were discussed with the patient. The patient concurred with the proposed plan, giving consent. Preparation: Patient was prepped in the usual sterile fashion. The patient was prepped with Chloraprep. Patient counseled on expected outcome and continued treatment and healing process. Patient tolerated the procedure well and was discharged in good condition with post-procedure instructions and anticipatory guidance regarding possible adverse reactions after the procedure including but not limited to infection, injection site flare reaction, allergic reaction. If corticosteroids were used then specifically the patient may develop hyperglycemia, facial flushing, heart palpitations amongst many other side effects associated with corticosteroids. Patient reports 100% pain relief while anaesthetized at right sacroiliac joint. Still pain at knee walking, sit to stand, and lunge. I have reviewed, edited and added to the above note and agree with those findings. Additions if any: Charlotte Mane MD, [facility] [employer] - [facility] documented in this encounter [facility] 03-20-2023 Instructions Jose Delong - 03/20/2023 1:40 PM EDT Patient counseled on expected outcome and continued treatment and healing process. Patient tolerated the procedure well and was discharged in good condition with post-procedure instructions and anticipatory guidance regarding possible adverse reactions after the procedure including but not limited to infection, injection site flare reaction, allergic reaction. If corticosteroids were used then specifically the patient may develop hyperglycemia, facial flushing, heart palpitations amongst many other side effects associated with corticosteroids. documented in this encounter [facility] Right knee pain, unspecified chronicity [facility] Diagnosis Bilateral hip pain Pain in joint, pelvic region and thigh [facility] Diagnosis Other cervical disc displacement, cervicothoracic region [facility] Diagnosis Osteoarthritis of both sacroiliac joints [facility] Diagnosis Osteoarthritis of both sacroiliac joints- Primary Osteoarthritis of both sacroiliac joints [facility] Diagnosis Hoarseness- Primary Dysphonia [facility] Diagnosis Osteoarthritis of both sacroiliac joints- Primary Pain of both sacroiliac joints Disorders of sacrum Spondylolisthesis of lumbar region Acquired spondylolisthesis Spinal stenosis, lumbar region, with neurogenic claudication Metatarsalgia of left foot Enthesopathy of ankle and tarsus, unspecified [facility] Diagnosis Osteoarthritis of both sacroiliac joints- Primary Pain of both sacroiliac joints Disorders of sacrum [facility] Diagnosis Elective surgery- Primary Unspecified elective surgery for purposes other than remedying health states [facility] (Routine) Specialty Diagnoses / Procedures Referred By Taliaac t Referred To Contact [facility] [address] [place] [address] Referral ID Status Reason Start Date Expiration Date Visits Re quested Visits Authorized [facility] Reason for Referral Specialty Diagnoses / Procedures Referred By Contac t Referred To Contact Diagnoses Spondylolisthesis, lumbar region Procedures MRI SPINE LUMBAR WITH AND WITHOUT CONTRAST [place] MRI, LUMBAR SPINE COMBO Julián Hill MD [facility] [place] [address] Referral ID Status Reason Start Date Expiration Date Visits Re quested Visits Authorized [id number] Closed 01/09/2023 02/03/2024 1 1 Specialty Diagnoses / Procedures Referred By Contac t Referred To Contact Diagnoses Other cervical disc displacement, cervicothoracic region Procedures CT SPINE CERVICAL WITHOUT CONTRAST [place] CT SCAN,CERVICAL SPINE,W/O CONTRAST Julián Hill MD [address] [place] [address] [place] [id number] Referral ID Status Reason Start Date Expiration Date Visits Re quested Visits Authorized [id number] Closed 02/01/2023 02/26/2024 1 1 Specialty Diagnoses / Procedures Referred By Contac t Referred To Contact Diagnoses Osteoarthritis of both sacroiliac joints Procedures [facility] FOR [facility] Charlotte Mane MD [address] [place] [address] [place] [address] Referral ID Status Reason Start Date Expiration Date V isits Requested Visits Authorized [id number] New Request 03/20/2023 04/13/2024 1 1 Specialty Diagnoses / Procedures Referred By Contac t Referred To Contact Diagnoses Osteoarthritis of both sacroiliac joints Pain of both sacroiliac joints Spondylolisthesis of lumbar region Spinal stenosis, lumbar region, with neurogenic claudication Charlotte Mane MD [address] [place] [address] [place] [address] Referral ID Status Reason Start Date Expiration Date V isits Requested Visits Authorized [id number] Pending Review 1 1 Specialty Diagnoses / Procedures Referred By Contac t Referred To Contact Podiatry Diagnoses Metatarsalgia of left foot Charlotte Mane MD [address] [place] [address] [place] [address] [facility] [place], [place] [address] [place] [address] Referral ID Status Reason Start Date Expiration Date V isits Requested Visits Authorized [id number] New Request 04/20/2023 05/14/2024 1 1 Specialty Diagnoses / Procedures Referred By Contac t Referred To Contact Diagnoses Osteoarthritis of both sacroiliac joints Pain of both sacroiliac joints Procedures US [facility]ING FOR ORTHO Charlotte Mane MD [address] [place] [id number] Referral ID Status Reason Start Date Expiration Date V isits Requested Visits Authorized [id number] New Request 06/15/2023 07/09/2024 1 1 Advance Directives No Advanced Directives Records FoundLatest Code Status on File Code Status Date Activated Date Inactivated Comments Full Code 06/12/2019 12:27 PM Latest Code Status on File Code Status Date Activated Date Inactivated Comments Full Code 06/12/2019 12:27 PM Latest Code Status on File Code Status Date Activated Date Inactivated Comments Full Code 05/10/2023 6:22 PM Code Status History Code Status Date Activated Date Inactivated Comments Full Code 06/12/2019 12:27 PM 05/10/2023 6:22 PM Summary Purpose Family History No Family History Records FoundNo Family History Records FoundNo Family History Records Found Additional Source Comments Reason for Visit (unrecogniz ed section and content) Referral ID Status Reason Start Date Expiration Date Visits Re quested Visits Authorized [id number] Closed 01/09/2023 02/03/2024 1 1 Specialty Diagnoses / Procedures Referred By Contac t Referred To Contact Diagnoses Other cervical disc displacement, cervicothoracic region Procedures CT SPINE CERVICAL WITHOUT CONTRAST [place] CT SCAN,CERVICAL SPINE,W/O CONTRAST Julián Hill MD [address] [place] [address] Referral ID Status Reason Start Date Expiration Date Visits Re quested Visits Authorized [id number] Closed 02/01/2023 02/26/2024 1 1 Specialty Diagnoses / Procedures Referred By Contac t Referred To Contact Diagnoses Osteoarthritis of both sacroiliac joints Procedures US IMAGING FOR ORTHO Charlotte Mane MD [address] [place] [id number] Referral ID Status Reason Start Date Expiration Date V isits Requested Visits Authorized [id number] New Request 03/20/2023 04/13/2024 1 1 Reason Comments Pain Right Sacroiliac Sade nt Follow-up Right Sacroiliac Sade nt Joint Injection Right Sacroiliac Sade nt Reason Comments New Patient Vocal cord assessmen t Specialty Diagnoses / Procedures Referred By Contac t Referred To Contact Diagnoses Other cervical disc displacement, cervicothoracic region Julián Hill MD [address] [place] [phone] Vinnie Gruber MD [address] [place] [phone] Referral ID Status Reason Start Date Expiration Date Visits Re quested Visits Authorized [id number] Closed 02/28/2023 03/24/2024 1 1 Reason Comments Pain Follow-up Reason Comments Pain Follow-up Joint Injection Specialty Diagnoses / Procedures Referred By Contac t Referred To Contact Diagnoses Sacroiliitis Sacroiliitis [M46.1] Procedures IL ARTHRODESIS SACROILIAC JOINT PERCUTANEOUS CHG FLUOROSCOPY UP TO 1 HOUR PHYSICIAN/QHP TIME IL IMPLANT/INSERT DEVICE, NOC PROSTHETIC IMPLANT NOS ARTHRODESIS SACROILIAC JOINT MINIMALLY INVASIVE W/ TRANSFIXING DEVICE FLUOROSCOPY IN OR Julián Hill MD [address] [facility] [address] [place] [address] [place] [address] Referral ID Status Reason Start Date Expiration Date Visits Re quested Visits Authorized [id number] 09/12/2023 1 1 Care Teams (unrecognized sec tion and content) Senior Architectural Designer Relationship Specialty Start Date End Date Jewel Morel MD [address] [place] [address] PCP - General Family Medicine 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 Relationship Specialty Start Date End Date Jewel Morel MD [address] [place] [address] PCP - General Family Medicine 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 Relationship Specialty Start Date End Date Jewel Morel MD [address] [place] [address] PCP - General Family Medicine 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 Relationship Specialty Start Date End Date Jewel Morel MD [address] [place] [address] PCP - General Family Medicine 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 Relationship Specialty Start Date End Date Jewel Morel MD [address] [place] [address] PCP - General Family Medicine 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 Relationship Specialty Start Date End Date Jewel Morel MD [address] [place] [address] PCP - General Family Medicine 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 Relationship Specialty Start Date End Date Jewel Morel MD [address] [place] [address] PCP - General Family Medicine 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 Relationship Specialty Start Date End Date Jewel Morel MD [address] [place] [address] PCP - General Family Medicine 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 Relationship Specialty Start Date End Date Jewel Morel MD [address] [place] [address] PCP - General Family Medicine 04/07/19 (unrecognized sect ion and content) No Status Records FoundNo Status Records FoundNo Status Records Found INFORMATION SOURCE (unrecogn ized section and content) DATE CREATED AUTHOR AUTHOR'S ORGANIZ ATION 06/16/2023 [facility] DATE CREATED AUTHOR AUTHOR'S ORGANIZ ATION 09/24/2023 [facility] Scheduled Active and Recently Administ ered Medications (unrecognized section and content) Continuous Medication Order 09/18/2023 09/19/2023 09/20/2023 Sodium chloride 0.9% IV solution Intravenous, at 100 mL/hr, CONTINUOUS, Starting on Misti 09/20/23 at 1200, Until Misti 09/20/23 at 1717, Convert IV to PRN adapter post op day 1 if PO intake >=300ml/shift, Post-op/Post-Proc 1345 (Stopped - Prov ider: Aspen Ayers RN) PRN Medication Order 09/18/2023 09/19/2023 09/20/2023 BUPivacaine-EPINEPHrine (MARCAINE;SENSORCAINE-MPF) 0.5% -[id number] injection (CANCELED) NEEDED, Starting on Misti 09/20/23 at 1048, Until Misti 09/20/23 at 1231, Intra-op/Intra-Proc 1048 (Given - Provid er: Julián Hill MD - Comment: right sacroiliac joint) fentaNYL (SUBLIMAZE) injection 25 mcg(Linked Group 1) 25 mcg, Intravenous, Administer over 2 Minutes, EVERY 15 MINUTES NEEDED, 3 doses, Starting on Misti 11/30/23 at 1306, Until Misti 09/20/23 at 1717, Moderate Pain, Pain 4-7, Recovery 1312 (See Alternativ e - Provider: Jazmin Valencia RN) fentaNYL (SUBLIMAZE) injection 50 mcg(Linked Group 1) 50 mcg, Intravenous, Administer over 2 Minutes, EVERY 15 MINUTES NEEDED, 3 doses, Starting on Misti 09/20/23 at 1306, Until Misti 09/20/23 at 1717, Severe Pain, Pain 8-10, Recovery 1312 (Given - Provid er: Jazmin Valencia RN) hydroCODone-acetaminophen (NORCO) 5-325 MG per tablet 1-2 tablet 1-2 tablet, Oral, EVERY 4 HOURS NEEDED, Starting on Misti 09/20/23 at 1153, Until Misti 09/20/23 at 1717, Other, See Admin Instructions, 1 tablet for pain scale 4 or 5 out of 10 2 tablets for pain scale 6 to 10 out 10, Post-op/Post-Proc 1302 (Given - Provid er: Jazmin Valencia RN) Methocarbamol (ROBAXIN) tablet 750-1,500 mg 750-1,500 mg, Oral, EVERY 8 HOURS NEEDED, Starting on Misti 09/20/23 at 1153, Until Misti 09/20/23 at 1717, Other, muscle spasm, Post-op/Post-Proc 1302 (Given - Provid er: Jazmin Valencia RN) mineral oil light 100 % topical oil (CANCELED) NEEDED, Starting on Misti 09/20/23 at 1109, Until Misti 09/20/23 at 1231, Intra-op/Intra-Proc 1109 (Given - Provid er: Julián Hill MD - Comment: placed on sterile field for use during case. used for equipment) Normal saline flush 0.9% injection 5 mL 5 mL, Intravenous, ADMINISTER DIRECTED, Starting on Misti 09/20/23 at 1153, Until Misti 09/20/23 at 1717, Flush, per IV care guidelines, Post-op/Post-Proc Ondansetron 4mg/2ml (ZOFRAN) injection 4 mg 4 mg, Intravenous, EVERY 8 HOURS NEEDED, Starting on Misti 09/20/23 at 1153, Until Misti 09/20/23 at 1717, Nausea / Vomiting, Post-op/Post-Proc Oxidized Cellulose (SURGICEL) topical pad (CANCELED) NEEDED, Starting on Misti 09/20/23 at 1108, Until Misti 09/20/23 at 1231, Intra-op/Intra-Proc 1108 (Given - Provid er: Julián Hill MD - Comment: right sacroiliac joint) Sodium chloride 0.9 % irrigation (CANCELED) NEEDED, Starting on Misti 09/20/23 at 1211, Until Misti 09/20/23 at 1231, Intra-op/Intra-Proc 1211 (Given - Provid er: Julián Hill MD - Comment: right sacroiliac joint. placed on sterile field for use during the case) Vancomycin (VANCOCIN) injection (COMPLETED) CONTINUOUS NEEDED, Starting on Misti 09/20/23 at 1108, Until Discontinued, Intra-op/Intra-Proc 1108 ($$New Bag$$ - Provider: Julián Hill MD - Comment: right sacroiliac joint) Linked Groups Order Group 1: fentaNYL (SUBLIMAZE) injection 25 mcgJump to med 25 mcg, Intravenous, Administer over 2 Minutes, EVERY 15 MINUTES NEEDED, 3 doses, Starting on Misti 09/20/23 at 1306, Until Misti 09/20/23 at 1717, Moderate Pain, Pain 4-7, Recovery Or fentaNYL (SUBLIMAZE) injection 50 mcgJump to med 50 mcg, Intravenous, Administer over 2 Minutes, EVERY 15 MINUTES NEEDED, 3 doses, Starting on Misti 09/20/23 at 1306, Until Misti 09/20/23 at 1717, Severe Pain, Pain 8-10, Recovery FOR RECORDS PERTAINING TO PATIENTS WHO ARE OR HAVE BEEN ENROLLED IN A CHEMICAL DEPENDENCY/SUBSTANCEABUSE PROGRAM, SOME INFORMATION MAY BE OMITTED. This clinical summary was aggregated from multiple sources. Caution should be exercised in using it in the provision of clinical care. This summary normalizes information from multiple sources, and as a consequence, information in this document may materially change the coding, format and clinical context of patient data. In addition, data may be omitted in some cases. CLINICAL DECISIONS SHOULD BE BASED ON THE PRIMARY CLINICAL RECORDS. [employer] [facility]. provides no warranty or guarantee of the accuracy or completeness of information in this document.
== END | disposition home or self-care (01) ==
PROVIDERS: PCP Family Medicine
DX: M46.1 Sacroiliitis, not elsewhere classified (principal)
CPT/HCPCS: 72100

== ENCOUNTER → 2023-11-27 | Outpatient (CLI) | payer OTHER, SELFPAY | END | disposition home or self-care (01) | LOC: LAB 13:27 | PROVIDERS: PCP Family Medicine; Referring Provider Urology; Visit Provider Urology | DX: Z12.5 Encounter for screening for malignant neoplasm of prostate (principal) | CPT/HCPCS: 36415; 84153; G0103 ==

== ENCOUNTER → 2023-12-20 | Outpatient (CLI) | payer OTHER, SELFPAY ==
--- NOTE | 2023-12-20 10:40 | RAD_ITS ---
EXAM: XR LUMBOSACRAL SPINE COMPLETE WITH FLEXION/EXTENSION, 6 OR MORE VIEWS CLINICAL INDICATION: SPONDYLOLISTHESIS TECHNIQUE: Lateral, frontal, oblique and lateral flexion/extension views of the lumbar spine and sacrum. COMPARISON: No relevant prior studies available. FINDINGS: VERTEBRAE: Multilevel facet arthrosis. No spondylolysis or spondylolisthesis. Multilevel intervertebral disc height loss. No abnormal motion upon flexion or extension. Preserved vertebral body height. No fracture. Preservation of the normal lumbar lordosis. SACRUM/COCCYX: Right SI joint arthrodesis. DISC SPACES: No significant findings. Disc spaces are maintained. VASCULATURE: Vascular calcifications. GASTROINTESTINAL TRACT: Normal as visualized. Included bowel gas pattern is non-obstructive. RAD/L/S Spine Comp/w Bending Views IMPRESSION: Right SI joint arthrodesis. Degenerative changes in the lumbar spine. No acute osseous abnormalities. Electronically Signed: Helder Zapata DO at 22:52 EST ,
== END | disposition home or self-care (01) ==
LOC: RAD 10:38
PROVIDERS: PCP Family Medicine
DX: M43.16 Spondylolisthesis, lumbar region (principal)
CPT/HCPCS: 72114

== ENCOUNTER → 2024-02-26 | Outpatient (CLI) | payer OTHER, SELFPAY ==
[2024-02-26 17:32] LABS: Absolute Lymphocyte Count 2.85 X10^3/uL (0.83-4.51); Absolute Neutrophil Count 3.6 X10^3/uL (2.0-7.7); Basophil# 0.08 X10^3/uL; Basophil% 1.1 % (0-1); Eosinophil# 0.11 X10^3/uL; Eosinophils% 1.5 % (0-5); Hematocrit 41.5 % (40-54); Hemoglobin 13.6 g/dL (13.0-16.5); Lymphocyte # 2.85 X10^3/ul (0.83-4.51); Lymphocyte % 39.4 % (19-41); Mean Corp Hgb Conc 32.8 g/dL (32-36); Mean Corpuscular Hgb 28.5 pg (27.0-32.0); Mean Corpuscular Volume 86.8 fL (80-94); Mean Platelet Vol. 10.6 fl (6.2-12.0); Monocyte# 0.58 X10^3/uL; NRBC Flagged by Analyzer 0 % (0-5); Neutrophil % 49.9 % (47-70); Platelet Count 345 K/mm3 (150-450); RBC Distribution Width CV 12.9 % (11.6-14.6); RBC Distribution Width SD 40.7 fl (35.1-43.9); Red Blood Count 4.78 M/mm3 (4.6-6.2); White Blood Count 7.2 K/mm3 (4.4-11.0)
[2024-02-26 17:48] LABS: Erythrocyte Sedimentation Rate 34 mm/hr (0-20)
[2024-02-26 18:01] LABS: ALB/GLOB Ratio 0.9 RATIO (0.9-2.4); AST(SGOT) 18 U/L (15-37); Alanine Aminotransfer ALT/SGPT 23 U/L (16-61); Albumin, Serum 3.5 g/dL (3.2-5.0); Alkaline Phosphatase 50 U/L (45-117); Anion Gap 7 (5-15); BUN 19 mg/dL (7-18); BUN/Creat Ratio 18.8 RATIO (10-20); Calcium,Total 8.9 mg/dL (8.5-10.1); Chloride 106 mmol/L (98-107); Creatinine, Serum 1.01 mg/dL (0.70-1.30); EST Glomerular Filtration Rate 77 mL/min (>60); Est Glom Filt Rate - Afr Amer 93 mL/min (>60); Ferritin 108 ng/mL (26-388); Glucose 114 mg/dL (74-106); Potassium 3.8 mmol/L (3.5-5.1); Protein, Total 7.5 g/dL (6.4-8.2); Rheumatoid Factor < 10.0 IU/mL (<15); Sodium Level 137 mmol/L (136-145); Thyroid Stim Hormone (TSH) 1.52 uIU/mL (0.358-3.74)
[2024-02-26 18:04] LABS: Vitamin D,25 Hydroxy 71.2 ng/mL
[2024-02-26 18:15] LABS: PTHIN 41.9 pg/mL (18.4-80.1)
[2024-02-28 15:09] LABS: ANTINUCLEAR ANTIBODIES DIRECT Negative (Negative); Complement CH50 > 60 U/mL (>41); Lyme Scn Total Ab w/Rflx Negative (Negative)
== END | disposition home or self-care (01) ==
LOC: MFPLAB 15:40
PROVIDERS: PCP Family Medicine; Visit Provider Family Medicine
DX: M06.4 Inflammatory polyarthropathy (principal)
CPT/HCPCS: 36415; 80053; 82306; 82728; 83970; 84443; 85025; 85652; 86038; 86140; 86162; 86431; 86618

== ENCOUNTER → 2024-04-14 | Outpatient (CLI) | payer OTHER, SELFPAY ==
--- NOTE | 2024-04-14 13:29 | ART_ITS ---
Reason For Study: Other specified symptoms and signs involving the circulatory system Procedure A bilateral lower extremity continuous wave Doppler with analog waveform analysis,segmental pressures,and ankle brachial indexes with exercise. Left Segmental Pressures Left brachial= 147mmHg. Left posterior tibial artery = 156mmHg. Left dorsalis pedis artery = 155mmHg. Left digit = 104 mmHg. Right Segmental Pressures Right brachial= 150mmHg. Right posterior tibial artery = 165mmHg. Right dorsalis pedis artery = 155mmHg. Right digit = 118 mmHg. Indices The right ankle brachial index by the posterior tibial artery is 1.10. The right ankle brachial index by the dorsalis pedis is 1.03. The right digital-brachial index is 0.79. The right post exercise ankle brachial index is 1.09. The left ankle brachial index by the posterior tibial artery is 1.04. The left ankle brachial index by the dorsalis pedis is 1.03. The left digital-brachial index is 0.69. The left post exercise ankle brachial index is 0.87. VL/Lower Ext Art Exam w/ Exercise Interpretation Summary Normal right lower extremity posterior tibialis and dorsalis pedis ankle-brachi al indices at rest at 1.1 and 1.03 respectively with normal triphasic Doppler waveforms Normal right digital brachial index of 0.79 Normal right post exercise index at 1 minute at 1.09 Normal left posterior tibialis and dorsalis pedis ankle-brachial indices at res t at 1.04 and 1.03 respectively with normal triphasic Doppler waveforms Borderline abnormal left digital brachial index of 0.69 Abnormal left lower extremity post exercise index at 0.87 with recovery at 5 mi nutes. This would suggest mild occlusive disease site undetermined left lower extremit y only elicited on exercise component of the examination. Ordering Physician: Jewel Morel Referring Physician: JEWEL MOREL MD Performed By: Candice DOWLING RDCS, Valentine and Student
== END | disposition home or self-care (01) ==
LOC: CVS 13:26
PROVIDERS: PCP Family Medicine; Referring Provider Family Medicine; Visit Provider Family Medicine
DX: R09.89 Other specified symptoms and signs involving the circulatory and respiratory systems (principal)
CPT/HCPCS: 93924

== ENCOUNTER → 2024-05-22 | Outpatient (CLI) | payer OTHER, SELFPAY ==
--- NOTE | 2024-05-22 10:56 | RAD_ITS ---
INDICATION: SPONDYLOLISTHESIS EXAMINATION/TECHNIQUE: X-RAY - XR Spine Lumbar Comp W/ Bending Min 6 Views COMPARISON: Prior study dated: 12/20/2023 FINDINGS: VERTEBRAE: Fixation screws across the right sacroiliac joint. Preserved vertebral body height. No fracture. No spondylolisthesis. Preservation of the normal lumbar lordosis. Mild facet arthropathy of the lumbar spine. No evidence of instability on flexion and extension. DISCS: Mild disc space narrowing at L5-S1. INCLUDED ABDOMEN: Included bowel gas pattern is non-obstructive. RAD/L/S Spine Comp/w Bending Views IMPRESSION: No evidence of lumbar spinal fracture or spondylolisthesis. Mild degenerative changes. Electronically Signed: Nima Maya MD at 23:15 EDT ,
--- NOTE | 2024-05-22 11:10 | RAD_ITS ---
INDICATION: HERNIATED DISC EXAMINATION/TECHNIQUE: X-RAY - XR Spine Cervical 6 or More Views COMPARISON: Prior study dated: 08/10/2023 FINDINGS: VERTEBRAE: Preserved vertebral body height. No fracture. No spondylolisthesis. Preservation of the normal cervical lordosis. No significant facet arthropathy. DISCS: Disc hardware at C4-C5 and C6-C7. Bony fusion across the C5-C6 level. Remaining disc spaces are maintained. NECK SOFT TISSUES: No prevertebral soft tissue widening. LUNG APICES: Clear. RAD/Cerv Spine Obl/Flex/Ext Comp IMPRESSION: Intact disc hardware at C4-C5 and C6-C7 with appropriate alignment.. Electronically Signed: Nima Maya MD at 22:42 EDT ,
== END | disposition home or self-care (01) ==
LOC: RAD 10:53
PROVIDERS: PCP Family Medicine
DX: M43.16 Spondylolisthesis, lumbar region (principal); M50.23 Other cervical disc displacement, cervicothoracic region
CPT/HCPCS: 72052; 72114

== ENCOUNTER → 2024-06-06 | Outpatient (CLI) | payer OTHER, SELFPAY ==
--- NOTE | 2024-06-06 08:33 | CDU_ITS ---
Reason For Study: Pulsatile Tinnitus Rt. Velocities/BP Lt. Velocities/BP Prox CCA 89/20 cm/sec. Prox CCA 131/21 cm/sec. Mid CCA 79/16 cm/sec. Mid CCA 99/18 cm/sec. Dist CCA 73/20 cm/sec. Dist CCA 92/17 cm/sec. Prox ICA 89/18 cm/sec. Prox ICA 72/18 cm/sec. Mid ICA 87/31 cm/sec. Mid ICA 103/31 cm/sec. Dist ICA 101/39 cm/sec. Dist ICA 104/33 cm/sec. Rt. ICA/CCA = 1.3. Lt. ICA/CCA = 1.0. Prox ECA 110/15 cm/sec. Prox ECA 87/9 cm/sec. Rt. Vert. 42/10 cm/sec. Lt. Vert. 52/17 cm/sec. Right Extracranial There is heterogeneous, smooth atherosclerotic plaque noted in the right common carotid artery. There is heterogeneous, smooth atherosclerotic plaque noted in the right internal carotid artery. There is intimal thickening but no significant atherosclerotic plaque noted in the right external carotid artery. Antegrade flow is noted in the right vertebral artery. Left Extracranial There is intimal thickening but no significant atherosclerotic plaque noted in the left common carotid artery. There is heterogeneous, irregular atherosclerotic plaque noted in the left internal carotid artery. There is no significant atherosclerotic plaque noted in the left external carotid artery. Antegrade flow is noted in the left vertebral artery. VL/Carotid Duplex Ultrasound Interpretation Summary Mild (<50%) stenosis right extracranial internal carotid. Mild (<50%) stenosis left extracranial internal carotid. Patent and antegrade vertebrals bilaterally. Ordering Physician: Irene Pinzon Referring Physician: Bereket Morel Performed By: Valentine Harvey, LEILANI, RVT
--- NOTE | 2024-06-06 08:33 | AAAS_ITS ---
Reason For Study: Hx of Smoking Aorta Measurements Aorta Doppler Measurements Proximal aorta measures2.04cm x 2.10cm. in cross- Peak systolic flow velocities within the proximal sectional axis. aorta measure 90 cm/sec. Proximal aorta measures1.84cm. in longitudinal Peak systolic flow velocities within the mid aorta axis. measure 65 cm/sec. Mid aorta measures1.70cm x 1.84cm. in cross- Peak systolic flow velocities within the distal sectional axis. aorta measure 82 cm/sec. Mid aorta measures1.75cm. in longitudinal axis. Distal aorta measures1.89cm x 1.93cm. in cross- sectional axis. Distal aorta measures1.55cm. in longitudinal axis. Left Iliac Artery Left iliac artery measures 0.76cm x 0.86 cm. in the cross-sectional axis. Left iliac artery measures 0.69 cm. in the longitudinal axis. Peak systolic velocity in the left iliac artery measures 161 cm/sec. Right Iliac Artery Right iliac artery measures 0.95cm x 1.08 cm. in the cross-sectional axis. Right iliac artery measures 0.95 cm. in the longitudinal axis. Peak systolic velocity in the right iliac artery measures 212 cm/sec. Procedure Aorta IVC Iliac vasculature or bypass grafts [id number]. Exam performed in department. VL/AAA Screening Interpretation Summary Aorta patent, normal caliber Bilateral iliac arteries patent, normal caliber Ordering Physician: Irene Pinzon Referring Physician: Bereket Morel Performed By: Valentine Harvey, LEILANI, RVT
== END | disposition home or self-care (01) ==
PROVIDERS: PCP Family Medicine; Referring Provider Physician Assistant; Visit Provider Physician Assistant
DX: M43.16 Spondylolisthesis, lumbar region (principal); Z87.891 Personal history of nicotine dependence; H93.A9 Pulsatile tinnitus, unspecified ear; I65.23 Occlusion and stenosis of bilateral carotid arteries
CPT/HCPCS: 76706; 93880

== ENCOUNTER → 2024-06-17 | Outpatient (CLI) | payer OTHER, SELFPAY ==
--- NOTE | 2024-06-17 16:24 | CT_ITS ---
STUDY: CT LUMBAR SPINE WITHOUT CONTRAST REASON FOR EXAM: Male, 74 years old. LUMBAR SPONDYLOLISTHESIS RADIATION DOSAGE (If Supplied By Facility): CTDIvol = ( 24.09 ) mGy, DLP = ( 934.84 ) mGycm TECHNIQUE: The patient was scanned in a multi detector CT scanner. High resolution transaxial imaging was performed. Images were obtained from to . Sagittal and coronal images were reconstructed. Individualized dose optimization techniques were used for this CT. COMPARISON: None FINDINGS: Normal lumbar lordosis. There is no substantial scoliosis. Normal vertebrae of the lumbar spine. L1-2: Normal endplates. Normal disc height and morphology. Normal bilateral facet joints. Normal central canal and bilateral lateral recesses. Normal bilateral intervertebral neural foramina. L2-3: Normal endplates. Normal disc height and morphology. Normal bilateral facet joints. Normal central canal and bilateral lateral recesses. Normal bilateral intervertebral neural foramina. L3-4: Normal endplates. Normal disc height and morphology. Degenerative hypertrophy of the bilateral facet joints. Normal central canal and bilateral lateral recesses. Normal bilateral intervertebral neural foramina. L4-5: Normal endplates. Normal disc height with mild annular bulge. Normal bilateral facet joints. Normal central canal and bilateral lateral recesses. Bulging disc slightly narrowing the bilateral intervertebral neural foramina. L5-S1: Mild spurring at the endplates. Narrowed disc height. Normal bilateral facet joints. Normal central canal and bilateral lateral recesses. Degenerative spurring narrowing the bilateral intervertebral neural foramina, left more than right. Normal visualized paraspinous soft tissue structures. Surgical fixation of the right SI joint. 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 Electronically Signed: Jorge Camacho DO at 23:36 EDT Reading Location ID and State: [facility] / [place] Tel [phone], Service support ,
== END | disposition home or self-care (01) ==
PROVIDERS: PCP Family Medicine; Referring Provider Neurological Surgery; Visit Provider Neurological Surgery
DX: M43.16 Spondylolisthesis, lumbar region (principal)
CPT/HCPCS: 72131

== ENCOUNTER → 2024-07-11 | Outpatient (CLI) | payer OTHER, SELFPAY ==
--- NOTE | 2024-07-11 14:11 | US_ITS ---
STUDY: ULTRASOUND BREAST - LEFT REASON FOR EXAM: Male, 74 years old. Pain in the left breast. TECHNIQUE: Axial and longitudinal images of the LEFT breast were performed with a high resolution ultrasound transducer. # OF IMAGES: 28 COMPARISON: Comparison is made with prior mammogram done earlier today. FINDINGS: LEFT Breast: The retroareolar region of the left breast was examined with ultrasound. There is scattered fibroglandular tissue. No masses seen. US/Breast Limited Unilateral IMPRESSION: Findings suggestive of a left gynecomastia. ASSESSMENT CATEGORY: BIRADS Category 2: Benign. A letter regarding these results will be sent to the patient by the facility within 30 days. Electronically Signed: Branden Garg MD at 9:11 EDT ,
--- NOTE | 2024-07-11 14:14 | BI_ITS ---
MAMMOGRAPHY - BILATERAL DIAGNOSTIC REASON FOR EXAM: Male, 74 years old. Left periareolar tenderness. Recent medication change. PERTINENT HISTORY: Non-contributory. TECHNIQUE: Digital bilateral breast herman (3D mammographic acquisition) in the CC and MLO projections. 2-D mediolateral oblique (MLO) and craniocaudad (CC) views of both breasts were obtained. CAD: Full Field Digital Mammography with Computer Added Detection was performed. COMPARISON: None. Baseline examination. FINDINGS: Breast Composition: There are scattered areas of fibroglandular density in the left retroareolar region. There are no dominant masses or suspicious calcifications. No other significant abnormalities are identified. BI/DIAG MAMM W/CAD, BILAT IMPRESSION: Asymmetrical breast tissue where breast tissue is seen in the retroareolar region of the left breast as compared to the right side. This most likely represents gynecomastia. This corresponds to the area of tenderness. Correlation with ultrasound recommended. ASSESSMENT CATEGORY: BIRADS Category 0: Incomplete. Need additional imaging evaluation. A letter regarding these results will be sent to the patient by the facility within 30 days. Approximately 10% of breast cancers are not detected by mammography. A normal mammogram should not delay biopsy of a clinically suspicious abnormality. Electronically Signed: Branden Garg MD at 9:10 EDT ,
== END | disposition home or self-care (01) ==
LOC: OPBI 14:08
PROVIDERS: PCP Family Medicine; Referring Provider Family Medicine; Visit Provider Family Medicine
DX: N64.4 Mastodynia (principal); N62 Hypertrophy of breast
CPT/HCPCS: 76642; 77062; 77066; G0279

== ENCOUNTER → 2024-12-01 | Outpatient (CLI) | payer OTHER, SELFPAY | END | disposition home or self-care (01) | LOC: LAB 15:39 | PROVIDERS: PCP Family Medicine; Referring Provider Urology; Visit Provider Urology | DX: Z12.5 Encounter for screening for malignant neoplasm of prostate (principal) | CPT/HCPCS: 36415; 84153; G0103 ==

== ENCOUNTER 2025-06-04 05:56 | Day surgery (SDC) | payer OTHER, SELFPAY ==
--- NOTE | 2025-05-26 09:10 | EKG12_ITS ---
Test Reason : PREOP Blood Pressure : */* mmHG Vent. Rate : 68 BPM Atrial Rate : 68 BPM P-R Int : 164 ms QRS Dur : 94 ms QT Int : 386 ms P-R-T Axes : 58 65 65 degrees QTcB Int : 410 ms Normal sinus rhythm Normal ECG Confirmed by DANIEL CHOI, ARELI ([id number]), general expeditor PA HUTCHISON ([id number]) on 05/27/2025 6:50:03 AM Referred By: Cherry Hall Confirmed By: ARELI SANCHEZ MD
[2025-05-26 10:18] LABS: Hematocrit 42.5 % (40-54); Hemoglobin 14.2 g/dL (13.0-16.5); Mean Corp Hgb Conc 33.4 g/dL (32-36); Mean Corpuscular Volume 87.8 fL (80-94); Mean Platelet Vol. 10.1 fl (6.2-12.0); Platelet Count 320 K/mm3 (150-450); RBC Distribution Width CV 13.1 % (11.6-14.6); RBC Distribution Width SD 42.2 fl (35.1-43.9); Red Blood Count 4.84 M/mm3 (4.6-6.2); White Blood Count 8.7 K/mm3 (4.4-11.0)
[2025-05-26 10:27] LABS: Prothrombin Time (Protime)PT. 13.4 SECONDS (11.7-14.9)
[2025-05-26 10:28] LABS: Partial Thromboplast Time 27.9 Seconds (24.1-36.2)
[2025-05-26 10:52] LABS: AST(SGOT) 19 U/L (<=37); Alanine Aminotransfer ALT/SGPT 16 U/L (<=46); Albumin, Serum 4.4 g/dL (3.4-4.8); Alkaline Phosphatase 49 U/L (40-129); Anion Gap 12 (5-15); BUN 24 mg/dL (4-19); BUN/Creat Ratio 28.1 RATIO (10-20); Bilirubin, Direct 0.19 mg/dL (0.00-0.30); Calcium,Total 9.2 mg/dL (7.6-11.0); Carbon Dioxide 24.2 mmol/L (21.0-32.0); Chloride 103 mmol/L (98-108); Globulin 3.1 g/dL (2.2-4.2); Glucose 116 mg/dL (70-99); Potassium 3.9 mmol/L (3.3-5.1)
[2025-06-04] VITALS (11 sets, daily range): BP systolic 115–143; BP diastolic 56–92; PULSE 70–82; RESP 14–18; TEMP 35.9–36.6; O2SAT 93–99; BMI 32.2
--- OUTSIDE RECORDS SUMMARY | 2025-06-04 05:59 | XMS RPT_ITS | CCD ---
Author Organization [facility] Care Team Providers Care Malt Specifications Control Assistant Name Role Phone Jewel Morel MD A Primary Care Provider [phone] MOREL, JEWEL A Primary Care Unavailable SIEGAL, JULIÁN Attending Unavailable SIEGAL, JULIÁN Referring Unavailable MOREL, JEWEL A Primary Care Unavailable SIEGAL, JULIÁN Attending Unavailable SIEGAL, JULIÁN Referring Unavailable MOREL, JEWEL A Primary Care Unavailable Jewel Morel MD A Primary Care Provider SIEGAL JULIÁN Attending Unavailable SIEGAL, JULIÁN Referring Unavailable [...] Unavailable CONSULT, GENERAL MEDICINE Consulting Unavai lable LIZ JULIÁN Referring Unavailable SIEGAL, JULIÁN Attending Unavailable [...] Unavailable MOREL, JEWEL A Primary Care Unavailable Adriel CHOI, Dr. [place] Primary Care Provider Adriel CHOI, Dr. [place] Referring Provider [phone] Rafael CHOI, Dr. Carey Attending Provider [phone] Morel, Jewel Primary Care Unavailable Morel, Jewel Attending Unavailable Morel, Jewel Referring Unavailable Morel, Jewel Primary Care Unavailable Carrington, David Attending Unavailable Carrington, David Referring Unavailable Robotham, Cherry Attending Unavailable Robotham, Cherry Referring Unavailable Morel, Jewel Primary Care Unavailable Robotham, Cherry Referring Unavailable Ari Monrealril Attending Unavailable Morel, Jewel Primary Care Unavailable Pinzon, Irene Referring Unavailable Morel, Jewel Primary Care Unavailable Alexander, Jewel Attending Unavailable Robotham, Cherry Attending Unavailable Morel, Jewel Referring Unavailable Morel, Jewel Primary Care Unavailable Pinzon, Irene Attending Unavailable Pinzon, Irene Referring Unavailable Morel, Jewel Primary Care Unavailable SiegalDaryel D Attending Unavailable Siegal, Julián D Referring Unavailable Morel, Jewel Primary Care Unavailable Allergies Allergy Classification Reported Allergen(s) Allergy Type Date of Onset Reaction(s) Facility (20 sources) Azithromycin Drug Allergy 04-07-20 19 Constipation [facility] Comment on above: B.M. ISSUES (10 sources) Chlorhexidine Drug Allergy 09-28-20 21 SKIN FELT LIKE IT WAS BURNING [facility] (20 sources) Clindamycin Drug Allergy 04-07-20 19 Dyspepsia [facility] Comment on above: SEVERE STOMACH CRAMP S, BACK PAIN (20 sources) Codeine Drug Allergy 04-07-20 19 Anxiety [facility] Comment on above: IMPAIRED MEMORY (11 sources) Corticosteroids; Translations: [Corticosteroids (Glucocorticoids)] Allergy to substance 09-28-20 Other [facility] Comment on above: FLUSHING, ELEVATED B LOOD PRESSURE (20 sources) Erythromycin Drug Allergy 04-07-20 19 Dyspepsia [facility] Comment on above: SEVERE STOMACH CRAMP S (20 sources) gabapentin Drug Allergy 04-07-20 19 Dyspepsia [facility] Comment on above: INTESTINAL CRAMPS (20 sources) Naproxen Drug Allergy 04-07-20 19 Dyspepsia [facility] Comment on above: UPSET STOMACH, HEART BURN, EAR RINGING (11 sources) oxyCODONE; Translations: [oxycodone HCl] Drug Allergy 09-28-20 Other [facility] Comment on above: HALLUCINATIONS (17 sources) predniSONE Drug Allergy 04-07-20 19 Flushing [facility] (10 sources) Sulfamethoxazole Drug Allergy 09-28-20 [facility] Comment on above: STOMACH CRAMPS (18 sources) Thimerosal Drug Allergy 04-07-20 19 Myalgia [facility] Comment on above: MUSCLE ACHES (10 sources) Trimethoprim Drug Allergy 09-28-20 [facility] Comment on above: STOMACH CRAMPS (11 sources) oxyCODONE Drug Allergy 04-07-20 19 Anxiety [facility] (11 sources) Sulfamethoxazole / Trimethoprim Drug Allergy 04-07-20 19 Dyspepsia [facility] (5 sources) Acetaminophen / oxyCODONE Drug Allergy 04-04-20 10 [facility] (3 sources) HYDROmorphone Drug Allergy 05-10-20 23 Anxiety [facility] (3 sources) Prednisone Propensity to adverse reactions to drug 04-07-20 19 Flushing [facility] (3 sources) Thimerosal Drug Allergy 04-07-20 19 Myalgia [facility] (1 source) Azithromycin Drug Allergy 05-25-20 [facility] (1 source) Chlorhexidine Drug Allergy 05-25-20 [facility] (1 source) Clindamycin Drug Allergy 05-25-20 [facility] (1 source) Codeine Drug Allergy 05-25-20 [facility] (1 source) Erythromycin Drug Allergy 05-25-20 [facility] (1 source) gabapentin Drug Allergy 05-25-20 [facility] (1 source) Naproxen Drug Allergy 05-25-20 [facility] (1 source) Sulfamethoxazole Drug Allergy 05-25-20 [facility] (1 source) Thimerosal Drug Allergy 05-25-20 [facility] (1 source) Trimethoprim Drug Allergy 05-25-20 [facility] Medications Current Medications Medication Drug Class(es) Dates Sig (Normalized) Sig (Original) acetaminophen 325 mg / HYDROcodone bitartrate 5 mg oral tablet (4 sources) Opioid Agonist Start: 09-20-2023 End: 09-25-2023 take 1 tablet by mouth four times daily as needed for pain hydroCODone-aceta minophen 5-325 MG tablet Indications: Elective surgery Take 1 tablet by mouth 4 times daily as needed for Moderate Pain for up to 5 days. 20 tablet 0 09/20/2023 Active Start: 09-20-2023 End: 09-20-2023 take 1-2 tablets by mouth every four hours as needed hydroCODone-acetaminophen (NORCO) 5-325 MG per tablet 1-2 tablet Start: 05-10-2023 take 1 tablet by [facility] every six hours as needed for pain hydroCODone-acetaminophen 5-325 MG table t Indications: Elective surgery Take 1 tablet by mouth every 6 hours as needed for Moderate Pain for up to 5 days. 20 tablet 0 05/10/2023 Active amLODIPine 5 mg oral tablet (20 sources) Dihydropyridine Calcium Channel Sid Start: 06-18-2019 take 1 tablet by mouth once daily Amlodipine 5 MG tablet Active 5 mg PO DAILY June 18, 2019 12:00am amoxicillin 875 mg / clavulanate 125 mg oral tablet (3 sources) Penicillin-class Antibacterial take 1 tablet by mouth every twelve hours Amoxicillin-clavula cristy 875-125 MG tablet Take 1 tablet by mouth every 12 hours. 0 Active cholecalciferol 0.05 mg oral capsule (20 sources) Vitamin D Start: 06-18-2019 Cholecalciferol (Vitamin D3) 2,000 UNIT capsule Active 5000 U PO DAILY June 18, 2019 12:00am Start: 06-18-2019 take 5000 [IU] by mo [facility] once daily Cholecalciferol (Vitamin D3) Active 5000 UNIT PO DAILY June 18, 2019 12:00am take 4000 [IU] by [facility] once daily Cholecalciferol (VITAMIN D3 PO) Take 4,000 Units by mouth daily. 0 Active indapamide 1.25 mg oral tablet (2 sources) Thiazide-like Diuretic take 1 tablet by mouth once daily in the morning Indapamide 1.25 MG tablet Take 1 tablet by mouth daily every morning. 0 Active losartan potassium 100 mg oral tablet (20 sources) Angiotensin 2 Receptor Sid Start: 9 take 1 tablet by mouth at bedtime Losartan 100 MG tablet Active 100 mg PO AT BEDTIME June 18, 2019 12:00am omeprazole 20 mg delayed release oral tablet (20 sources) Proton Pump Inhibitor Start: 9 take 1 tablet by mouth once daily Omeprazole Magnesium 20 MG tablet,delayed release (DR/EC) Active 20 mg PO DAILY June 18, 2019 12:00am take 20 mg by mouth once daily in the morning Omeprazole Magnesium (PRILOSEC OTC PO) T latrell 20 mg by mouth daily. Every MORNING 0 Active potassium citrate (20 sources) Start: 06-18-2019 Potassium Citr ate (Bulk) Active 1080 MG MC AT BEDTIME June 18, 2019 5:32am Start: 06-18-2019 Potassium Citr ate (Bulk) Active 1080 MG MC AT BEDTIME June 18, 2019 12:00am Start: 06-18-2019 Potassium Citr ate (Bulk) Active 1080 MG MC AT BEDTIME June 17, 2019 11:00pm take 1 tablet by [facility] once daily potassium citrate 10 MEQ (1080 MG) Tab CR Take 1 tablet by mouth daily. Every NIGHT 0 Active Potassium Citrate (Bulk) 500 GM granules (1 source) Start: 06-18-2019 Potassium Citr ate (Bulk) 500 GM granules Active 1080 mg MC AT BEDTIME June 18, 2019 12:00am tamsulosin hydrochloride 0.4 mg oral capsule (17 sources) alpha-Adrenergi c Sid Start: 09-20-2021 take 1 capsule by mouth at bedtime Tamsulosin (Flomax) 0.4 mg Capsule Active 0.4 mg PO AT BEDTIME September 20, 2021 1:00am traMADol hydrochloride 50 mg oral tablet (4 sources) Opioid Agonist Start: 06-12-2019 take 1 tablet by mouth every six hours as needed for pain traMADol 50 MG Tab tablet Indications: Elective surgery Take 1 tablet by mouth every 6 hours as needed for Moderate Pain for up to 14 days. 56 tablet 0 06/12/2019 Active ubidecarenone 100 mg oral capsule (10 sources) Start: 06-18-2019 take 10 capsules by mouth once daily Coenzyme Q10 100 MG capsule Active 200 mg PO DAILY June 18, 2019 12:00am ubidecarenone 100 mg / vitamin e 5 unt oral capsule (11 sources) take 1 capsule by mouth once daily Coenzyme Q10 (CO Q10) 100 MG Cap Take 1 capsule by mouth daily. 0 Active Completed/Discontinued Medications Medication Drug Class(es) Dates Sig (Normalized) Sig (Original) Acetaminophen (1 source) Start: 09-20-2023 End: 09-20-2023 acetaminophen (OFIRMEV) IVPB 1,000 mg bupivacaine hydrochloride 5 mg/ml injectable solution (4 sources) Amide Local Anesthetic Start: 06-15-2023 End: 06-15-2023 BUPivacaine (MARCAINE) 0.5 % injection 1 mL Start: 03-20-2023 End: 03-20-2023 bupivacaine (MARCAINE) 0.5 % injection 1 mL chlorthalidone 25 mg oral tablet (5 sources) Thiazide-like Diuretic End: 03-20-2023 chlorthalidone 25 MG Tab tablet Take 25 mg by mouth as needed (high bp). 0 03/20/2023 Discontinued ciprofloxacin 500 mg oral tablet (10 sources) Quinolone Antimicrobial Start: 09-28-2021 End: 05-22-2024 take 1 tablet by mouth twice daily Ciprofloxacin Hcl (Cipro) 500 mg tablet Discontinued 500 mg PO TWICE A DAY September 28, 2021 1:00am May 22, 2024 10:13am cyclobenzaprine hydrochloride 10 mg oral tablet (20 sources) Muscle Relaxant Start: 06-18-2019 End: 04-06-2025 take 1 tablet by mouth three times daily as needed for muscle spasms Cyclobenzaprine 10 MG tablet Discontinued 10 mg PO 3 TIMES DAILY NEEDED as needed for muscle spasms June 18, 2019 12:00am April 06, 2025 1:42pm 1 ml dexamethasone phosphate 4 mg/ml injection (4 sources) Corticosteroid Start: 06-15-2023 End: 06-15-2023 dexAMETHasone (DECADRON) injection 4 mg Start: 03-20-2023 End: 03-20-2023 dexAMETHasone (DECADRON) inj ection 4 mg dutasteride 0.5 mg oral capsule (6 sources) 5-alpha Reductase Inhibitor Start: 05-22-2024 take 1 capsule by mouth once daily Dutasteride (Avodart) 0.5 mg capsule Discontinued 0.5 mg PO DAILY May 22, 2024 12:00am take 1 capsule by mouth once levon ly dutasteride (Avodart) 0.5 MG capsule Take 1 capsule by mouth daily. 0 Active fentaNYL (SUBLIMAZE) injecti on 25 mcg (1 source) Start: 09-20-2023 End: 09-20-2023 fentaNYL (SUBLIMAZE) injecti on 25 mcg Gadobenate (1 source) Start: 01-22-2023 End: 01-22-2023 Gadobenate dimeglumine (MULTIHANCE) 10 mL 2.5 ml sodium hyaluronate 10 mg/ml prefilled syringe (6 sources) Start: 06-15-2023 End: 06-15-2023 Sodium Hyaluronate (Viscosup ) (GENVISC) SOSY 25 mg Start: 04-20-2023 Sodium Hyaluro cristy, Viscosup, 25 MG/2.5ML Solution Prefilled Syringe Indications: Osteoarthritis of both sacroiliac joints , Pain of both sacroiliac joints , Spondylolisthesis of lumbar region , Spinal stenosis, lumbar region, with neurogenic claudication 0.25 mL by Intra-articular route Once (In Clinic) for 1 dose. 2.5 mL 0 04/20/2023 Active ibuprofen 200 mg oral tablet (20 sources) Nonsteroidal Anti-inflammatory Drug Start: 06-18-2019 End: 04-06-2025 take 3 tablets by mouth three times daily as needed for pain Ibuprofen 200 MG tablet Discontinued 600 mg PO 3 TIMES DAILY NEEDED as needed for Pain June 18, 2019 12:00am April 06, 2025 1:42pm Start: 06-18-2019 take 600 mg by mouth three times daily as needed Ibuprofen Active 600 MG PO 3 TIMES DAILY NEEDED June 18, 2019 12:00am End: 09-20-2023 Ibuprofen (ADVIL PO) Take 60 0 mg by mouth as needed. 0 09/20/2023 Discontinued (Stop Taking at Discharge) iohexol (OMNIPAQUE) 350 MG/ML injection 75 mL (1 source) Start: 10-09-2023 End: 10-09-2023 iohexol (OMNIPAQUE) 350 MG/ML injection 75 mL 10 ml lidocaine hydrochloride 10 mg/ml injection (4 sources) Antiarrhythmic, Amide Local Anesthetic Start: 06-15-2023 End: 06-15-2023 Lidocaine (XYLOCAINE) 10 mg/mL injection 4 mL Start: 03-20-2023 End: 03-20-2023 Lidocaine (XYLOCAINE) 10 mg/ mL injection 4 mL methocarbamol 500 mg oral tablet (1 source) Muscle Relaxant Start: 09-20-2023 End: 09-20-2023 take 750-1500 mg by mouth every eight hours as needed Methocarbamol (ROBAXIN) tablet 750-1,500 mg 2 ml ondansetron 2 mg/ml injection (1 source) Serotonin-3 Receptor Antagonist Start: 09-20-2023 End: 09-20-2023 take 4 mg intravenously every eight hours as needed Ondansetron 4mg/2ml (ZOFRAN) injection 4 mg 1000 ml sodium chloride 9 mg/ml injection (7 sources) Start: 10-09-2023 End: 10-09-2023 Sodium chloride 0.9% IV solution 75 mL Start: 09-20-2023 End: 09-20-2023 Sodium chloride 0.9% IV solu tion Start: 09-20-2023 End: 09-20-2023 Normal saline flush 0.9% inj ection 5 mL Start: 06-15-2023 End: 06-15-2023 Sodium chloride (PF) 0.9 % i njection 5 mL Start: 03-20-2023 End: 03-20-2023 Sodium chloride (PF) 0.9 % i njection 5 mL 1 ml triamcinolone acetonide 40 mg/ml injection (4 sources) Corticosteroid Start: 06-15-2023 End: 06-15-2023 triamcinolone (KENALOG-40) injection 2 mL Start: 03-20-2023 End: 03-20-2023 triamcinolone (KENALOG-40) i njection 2 mL Problems Active Problems Problem Classification Problem Date Documented Da te Episodic/Chronic Abdominal hernia (1 source) Unspecified abdominal hernia without obstruction or gangrene; Translations: [Hernia] 04-06-2025 Episodic Essential hypertension (5 sources) Benign essential hypertension; Translations: [Essential (primary) hypertension] Onset: 05-11-2023 05-11-2023 Chronic Fever of unknown origin (10 sources) Fever; Translations: [Fever, unspecified] 06-19-2019 Episodic Other acquired deformities (5 sources) Lumbar spondylolisthesis; Translations: [Spondylolisthesis, lumbar region] Onset: 01-22-2023 Episodic Other connective tissue disease (1 source) Metatarsalgia of left foot; Translations: [Metatarsalgia, left foot] 04-20-2023 Episodic Other ear and sense organ disorders (1 source) Tinnitus of vascular origin; Translations: [Pulsatile tinnitus, unspecified ear] 05-23-2024 Episodic Other non-traumatic joint disorders (3 sources) Shoulder pain; Translations: [Pain in left shoulder] 04-01-2021 Episodic Other non-traumatic joint disorders (1 source) Hip pain; Translations: [Pain in right hip] Episodic Other non-traumatic joint disorders (2 sources) Pain in right hip; Translations: [Pain in right hip] Onset: 01-31-2023 Episodic Other non-traumatic joint disorders (2 sources) Pain in left hip; Translations: [Pain in left hip] Onset: 01-31-2023 Episodic Other non-traumatic joint disorders (7 sources) Pain in left shoulder; Translations: [Acute pain of left shoulder] 04-01-2021 Episodic Other nutritional; endocrine; and metabolic disorders (2 sources) Obese class I; Translations: [Obesity, unspecified] Onset: 07-27-2023 07-27-2023 Chronic Peripheral and visceral atherosclerosis (1 source) Peripheral vascular disease, unspecified; Translations: [Peripheral arterial disease] 05-23-2024 Chronic Residual codes; unclassified (3 sources) Obstructive sleep apnea syndrome; Translations: [Obstructive [...] remedying health state, unspecified] Onset: 09-20-2023 Episodic Screening and history of mental health and substance abuse codes (1 source) Ex-smoker; Translations: [Personal history of nicotine dependence] 05-23-2024 Episodic Spondylosis; intervertebral disc disorders; other back problems (16 sources) Other cervical disc displacement, unspecified cervical region; Translations: [Displacement of cervical intervertebral disc] Onset: 01-31-2023 Chronic Spondylosis; intervertebral disc disorders; other back problems (7 sources) Bilateral sacroiliac joint pain; Translations: [Sacrococcygeal disorders, not elsewhere classified] Onset: 04-20-2023 04-20-2023 Episodic Varicose veins of lower extremity (1 source) Varicose veins of lower extremity; Translations: [Asymptomatic varicose veins of bilateral lower extremities] 05-23-2024 Episodic Past or Other Problems Problem Classification Problem Date Documented Date Episodic/Chronic Nonmalignant breast conditions (1 source) Mastodynia; Translations: [Mastodynia] Onset: 12-01-2024 Episodic Other acquired deformities (3 sources) Spondylolisthesis, lumbar region; Translations: [Spondylolisthesis, lumbar region] Onset: 01-22-2023 Episodic Other aftercare (2 sources) Encounter for follow-up examination after completed treatment for conditions other than malignant neoplasm; Translations: [Encounter for follow-up examination after completed treatment for conditions other than malignant neoplasm] Onset: 04-20-2023 Episodic Other non-traumatic joint disorders (5 sources) Pain in right knee; Translations: [Pain in joint, lower leg] Onset: 01-09-2023 Episodic Other screening for suspected conditions (not mental disorders or infectious disease) (1 source) Encounter for screening for malignant neoplasm of prostate; Translations: [Encounter for screening for malignant neoplasm of prostate] Onset: 12-16-2024 Episodic Other upper respiratory disease (6 sources) Hoarse; Translations: [Dysphonia] Onset: 04-23-2023 04-23-2023 Episodic Residual codes; unclassified (3 sources) Postoperative state; Translations: [Other specified postprocedural states] Onset: 05-10-2023 05-11-2023 Episodic Results Test Name Value Interpretation Reference Range Facility 12 Lead EKGon 05-26-[address] [facility] [address] [place] [address] 12 Lead EKG 05/26/25 0918 MR#: [id number] Acct: [id number] Name: ANGELA RODRIGUES Rep #: [id number] : 1950 75 From: Dav Monreal MD Attending Dr: Dr. Cherry Hall MD Status: P RE [facility] Ordering Dr: Anthony Ziegler MD Date: 05/26/25 Location: [facility] Sex: M C Admitted: Test Reason : PREOP Blood Pressure : */* mmHG Vent. Rate : 68 BPM Atrial Rate : 68 BPM P-R Int : 164 ms QRS Dur : 94 ms QT Int : 386 ms P-R-T Axes : 58 65 65 degrees QTcB Int : 410 ms Normal sinus rhythm Normal ECG Confirmed by DANIEL CHOI, DAV ([id number]), video tape editor PA HUTCHISON ([id number]) on 05/27/2025 6:50:03 AM Referred By: Cherry Hall Confirmed By: DAV MONREAL MD 05/27/25 0650 Date Dav Monreal MD CC: Dr. Anthony Ziegler MD; Dr. Jewel Morel MD; Dr. Cherry Hall MD Signed Normal [facility] Basic Metabolic Profile (BMP )on 05-26-2025 BUN/CRE 28.1 RATIO High 08-10 [facility] Comment on above: Performed By: #### L 500.3400, L300.3900, L300.4310, L500.2500, L100.0500 ####[facility] [address] [place], [address] Calcium [Mass/Vol] 9.2 mg/dL Normal 7.6-11.0 [facility] Comment on above: Performed By: #### L 500.3400, L300.3900, L300.4310, L500.2500, L100.0500 ####[facility] [address] [place], [address] Chloride [Moles/Vol] 103 mmol/L Normal 98-108 [facility] Comment on above: Performed By: #### L 500.3400, L300.3900, L300.4310, L500.2500, L100.0500 ####[facility] [address] [place], [address] CO2 [Moles/Vol] 24.2 mmol/L Normal 21.0-32.0 [facility] Comment on above: Performed By: #### L 500.3400, L300.3900, L300.4310, L500.2500, L100.0500 ####[facility] [address] [place], [address] Creatinine [Mass/Vol] 0.86 mg/dL Normal 0.70-1.20 [facility] Comment on above: Performed By: #### L 500.3400, L300.3900, L300.4310, L500.2500, L100.0500 ####[facility] [address] [place], [address] GAP 12 Normal 5-15 [facility] Comment on above: Performed By: #### L 500.3400, L300.3900, L300.4310, L500.2500, L100.0500 ####[facility] [address] [place], [address] GFR/1.73 sq M.predicted among non-blacks MDRD (S/P/Bld) [Vol rate/Area] 92 mL/min/{1.73_m2} Normal >60 [facility] Comment on above: Result Comment: mL/m in/1.73m2 CKD-EPI Creatinine Equation (2020) Performed By: #### L 500.3400, L300.3900, L300.4310, L500.2500, L100.0500 ####[facility] [address] [place], [address] Glucose [Mass/Vol] 116 mg/dL High 70-99 [facility] Comment on above: Performed By: #### L 500.3400, L300.3900, L300.4310, L500.2500, L100.0500 ####[facility] [address] [place], [address] Potassium [Moles/Vol] 3.9 mmol/L Normal 3.3-5.1 [facility] Comment on above: Performed By: #### L 500.3400, L300.3900, L300.4310, L500.2500, L100.0500 ####[facility] [address] [place], [address] Sodium [Moles/Vol] 138 mmol/L Normal 133-145 [facility] Comment on above: Performed By: #### L 500.3400, L300.3900, L300.4310, L500.2500, L100.0500 ####[facility] [address] [place], [address] Urea nitrogen [Mass/Vol] 24 mg/dL High 4-19 [facility] Comment on above: Performed By: #### L 500.3400, L300.3900, L300.4310, L500.2500, L100.0500 ####[facility] [address] [place], [address] CBC-Complete Blood Cnt No Di ffon 05-26-2025 Erythrocyte distribution width (RBC) [Ratio] 13.1 % Normal 11.6-14.6 [facility] Comment on above: Performed By: #### L 500.3400, L300.3900, L300.4310, L500.2500, L100.0500 #### [facility] [address] [place], [address] Hematocrit (Bld) [Volume fraction] 42.5 % Normal 40-54 [facility] Comment on above: Performed By: #### L 500.3400, L300.3900, L300.4310, L500.2500, L100.0500 #### [facility] [address] [place], [address] Hemoglobin (Bld) [Mass/Vol] 14.2 g/dL Normal 13.0-16.5 [facility] Comment on above: Performed By: #### L 500.3400, L300.3900, L300.4310, L500.2500, L100.0500 #### [facility] [address] [place], [address] MCH (RBC) [Entitic mass] 29.3 pg Normal 27.0-32.0 [facility] Comment on above: Performed By: #### L 500.3400, L300.3900, L300.4310, L500.2500, L100.0500 #### [facility] [address] [place], [address] MCHC (RBC) [Mass/Vol] 33.4 g/dL Normal 32-36 [facility] Comment on above: Performed By: #### L 500.3400, L300.3900, L300.4310, L500.2500, L100.0500 #### [facility] [address] [place], [address] MCV (RBC) [Entitic vol] 87.8 fL Normal 80-94 [facility] Comment on above: Performed By: #### L 500.3400, L300.3900, L300.4310, L500.2500, L100.0500 #### [facility] [address] [place], [address] Platelet mean volume (Bld) [Entitic vol] 10.1 fL Normal 6.2-12.0 [facility] Comment on above: Performed By: #### L 500.3400, L300.3900, L300.4310, L500.2500, L100.0500 #### [facility] [address] [place], [address] Platelets (Bld) [#/Vol] 320 10*3/uL Normal 150-450 [facility] Comment on above: Performed By: #### L 500.3400, L300.3900, L300.4310, L500.2500, L100.0500 #### [facility] [address] [place], [address] RBC (Bld) [#/Vol] 4.84 10*6/uL Normal 4.6-6.2 [facility] Comment on above: Performed By: #### L 500.3400, L300.3900, L300.4310, L500.2500, L100.0500 #### [facility] [address] [place], [address] RDW SD 42.2 fl Normal 35.1-43.9 [facility] Comment on above: Performed By: #### L 500.3400, L300.3900, L300.4310, L500.2500, L100.0500 #### [facility] [address] [place], [address] WBC (Bld) [#/Vol] 8.7 10*3/uL Normal 4.4-11.0 [facility] Comment on above: Performed By: #### L 500.3400, L300.3900, L300.4310, L500.2500, L100.0500 #### [facility] [address] [place], [address] Liver Profileon 05-26-2025 Albumin [Mass/Vol] 4.4 g/dL Normal 3.4-4.8 [facility] Comment on above: Performed By: #### L 500.3400, L300.3900, L300.4310, L500.2500, L100.0500 ####[facility] [address] [place], [address] ALK PHOS 49 U/L Normal 40-129 [facility] Comment on above: Performed By: #### L 500.3400, L300.3900, L300.4310, L500.2500, L100.0500 ####[facility] [address] [place], [address] ALT [Catalytic activity/Vol] 16 U/L Normal <=46 [facility] Comment on above: Performed By: #### L 500.3400, L300.3900, L300.4310, L500.2500, L100.0500 ####[facility] [address] [place], [address] AST [Catalytic activity/Vol] 19 U/L Normal <=37 [facility] Comment on above: Performed By: #### L 500.3400, L300.3900, L300.4310, L500.2500, L100.0500 ####[facility] [address] [place], [address] Bilirubin [Mass/Vol] 0.48 mg/dL Normal 0.00-1.30 [facility] Comment on above: Performed By: #### L 500.3400, L300.3900, L300.4310, L500.2500, L100.0500 ####[facility] [address] [place], [address] Bilirubin.direct [Mass/Vol] 0.19 mg/dL Normal 0.00-0.30 [facility] Comment on above: Performed By: #### L 500.3400, L300.3900, L300.4310, L500.2500, L100.0500 ####[facility] [address] [place], [address] Globulin (S) [Mass/Vol] 3.1 g/dL Normal 2.2-4.2 [facility] Comment on above: Performed By: #### L 500.3400, L300.3900, L300.4310, L500.2500, L100.0500 ####[facility] [address] [place], [address] T PROT 7.5 g/dL Normal 5.9-8.4 [facility] Comment on above: Performed By: #### L 500.3400, L300.3900, L300.4310, L500.2500, L100.0500 ####[facility] [address] [place], [address] Partial Thromboplast Timeon 05-26-2025 aPTT Coag (Bld) [Time] 27.9 s Normal 24.1-36.2 [facility] Comment on above: Performed By: #### L 500.3400, L300.3900, L300.4310, L500.2500, L100.0500 #### [facility] [address] [place], [address] Prothrombin Time w/INRon INR Coag (PPP) [Relative time] 1.0 {INR} Normal [facility] Comment on above: Performed By: #### L 500.3400, L300.3900, L300.4310, L500.2500, L100.0500 #### [facility] [address] [place], [address] PT Coag (PPP) [Time] 13.4 s Normal 11.7-14.9 [facility] Comment on above: Performed By: #### L 500.3400, L300.3900, L300.4310, L500.2500, L100.0500 #### [facility] [address] [place], [address] Surgery Visit Reporton 04-06 Surgery Visit Report [facility] [address] [place] [address] OFFICE VISIT Date of Service: 04/06/25 MR#: [id number] Acct: [id number] Name: ANGELA RODRIGUESN Rep #: [id number] : 1950 Provider: Dr. 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: No Is patient in pain?: No Allergies Corticosteroids (Glucocorticoids) Allergy (Verified 04/06/25 13:41) Other oxycodone HCl (From Percocet) Allergy (Verified 04/06/25 13:41) Other thimerosal Allergy (Verified 04/06/25 13:41) Other azithromycin Adverse Reaction (Verified 04/06/25 13:41) Other chlorhexidine Adverse Reaction (Verified 04/06/25 13:41) SKIN FELT LIKE IT WAS BURNING clindamycin Adverse Reaction (Verified 04/06/25 13:41) Other codeine Adverse Reaction (Verified 04/06/25 13:41) Other erythromycin base (Erythromycin Base) Adverse Reaction (Verified 04/06/25 13:41) Other gabapentin (From Neurontin) Adverse Reaction (Verified 04/06/25 13:41) Other naproxen Adverse Reaction (Verified 04/06/25 13:41) Other sulfamethoxazole (From Septra) Adverse Reaction (Verified 04/06/25 13:41) Other trimethoprim (From Septra) Adverse Reaction (Verified 04/06/25 13:41) Other Medications ???Medication ???Instructions ???Recorded ???Confirmed ???Type amlodipine 5 mg tablet 5 mg PO DAILY 06/18/19 04/06/25 Hi story cholecalciferol (vitamin D3) 50 5,000 unit PO DAILY 06/18/1904/06 History mcg (2,000 unit) capsule coenzyme Q10 100 mg capsule 200 mg PO DAILY 06/18/19 04/06/25 History losartan 100 mg tablet 100 mg PO QHS 06/18/19 04/06/25 Hi story omeprazole magnesium 20 mg 20 mg PO DAILY 06/18/19 04/06/25 H istory tablet,delayed release potassium citrate (bulk) 100 % 1,080 mg miscellaneous QHS 9 04/06/25 History granules tamsulosin 0.4 mg capsule (Flomax) 0.4 mg PO QHS 09/20/21 04/06/25 History dutasteride 0.5 mg capsule 0.5 mg PO DAILY 05/22/24 05/22/24 History (Avodart) Have you fallen in the past year?: No PFSH Medical History (Updated 04/08/25 @ 08:[address] Cherry Hall MD) Wears glasses Wears partial dentures Wears dentures Cancer Arthritis Bladder disease Back pain Headache Injury of head and neck History of IBS Gastric reflux Former smoker CPAP (continuous positive airway pressure) dependence Leg cramps History of pain when walking History of edema History of stress test Hypertension Surgical History (Updated 04/06/25 @ 13:43 by Cassi Orantes) History of back surgery ( 08/2023) H/O neck surgery ( 2021) Hx of cervical discectomy Hx of transurethral destruction of bladder lesion History of cystoscopy Hx of nasal septoplasty Hx of lumbar discectomy Family History Other Cancer Heart disease Hypertension Social History Smoking Status: Former smoker HPI HPI HPI: 75-year-old male presents with his due to umbilical hernia. Patient states that he knew about it since 2013. However about a week ago when trimming a tree did hit that area with a branch and has been tender since. Patient also admits to some tenderness at the area when riding his lawnmower. With umbilical hernia is reducible. And soft. ROS General General: No weight change, appetite, fatigue, colon cancer or breast cancer HEENT HEENT: No difficulty swallowing, eye injury, eye surgery, swollen glands or hoarseness Endo Endocrine: No thyroid disease, diabetes mellitus, thyroid cancer, Hair loss, heat intolerance or cold intolerance Skin Skin: Yes rash; No changing moles Musc Musculoskeletal: Yes back problems and arthritis; No rheumatoid arthritis, gout or joint pain Cardio Cardiovascular: Yes high blood pressure; No murmur, pacemaker, heart disease, atrial fibrillation, heart attack, heart stent, palpitations, shortness of breath with exertion or chest pain Psych Psychiatric: No depression, anxiety or hearing voices Resp Respiratory: No shortness of breath, Yes sleep apnea, No cough, No COPD, No asthma, No emphysema and No wheezing Gastro Gastrointestinal: Yes abdominal pain, No nausea or vomiting, No diarrhea, No constipation, No blood in stool, Yes acid reflux, No hemorrhoids, No ulcers, No gallbladder problem and No black,tarry stools [place]gard Hematologic: No blood thinners, No blood disorders, No bleeding, No anemia and No blood clots Neuro Neurologic: Yes numb (more content not included)... Normal [facility] PSA,Total - Annual Screenon 12-01-2024 PSA,TOT SCREEN 0.80 ng/mL Normal 0.00-4.00 [facility] Comment on above: Result Comment: This test was performed using the TPSA assay method for the Cequint chemistry system. Values obtained with different assay methods cannot be used interchangably. When changing PSA assays in the course of monitoring a patient, additional sequential testing should be carried out to confirm baseline values. Performed By: #### L 501.9910 #### [facility] [address] [facility] [facility] [place], [place], [address] Breast Limited Unilateralon 07-11-2024 Breast Limited Unilateral [facility] [address] [place], [place] [address] Breast Limited Unilateral MR#: [id number] Acct: [id number] Name: ANGELA RODRIGUES SAHIL Rep #: [id number] : 1950 M 74 From: Branden jack MD PCP: Dr. Jewel Morel MD Status: REG CLI Study: Breast Limited Unilateral Date of Exam: Exam# [id number] Ordering Dr: Jewel Morel MD [id number] STUDY: ULTRASOUND BREAST - LEFT REASON FOR EXAM: Male, 74 years old. Pain in the left breast. TECHNIQUE: Axial and longitudinal images of the LEFT breast were performed with a high resolution ultrasound transducer. # OF IMAGES: 28 COMPARISON: Comparison is made with prior mammogram done earlier today. FINDINGS: LEFT Breast: The retroareolar region of the left breast was examined with ultrasound. There is scattered fibroglandular tissue. No masses seen. US/Breast Limited Unilateral IMPRESSION: Findings suggestive of a left gynecomastia. ASSESSMENT CATEGORY: BIRADS Category 2: Benign. A letter regarding these results will be sent to the patient by the facility within 30 days. Electronically Signed: Branden Garg MD at 9:11 EDT Reading Location ID and State: [facility] / [place] , Service support , CC: Dr. Jewel Morel MD Vocational Evaluator: Signed Normal [facility] DIAG MAMM W/CAD, BILATon DIAG MAMM W/CAD, [facility] Services [address] [place] [address] DIAG MAMM W/CAD, [facility] MR#: [id number] Acct: [id number] Name: ANGELA RODRIGUES SAHIL Rep #: [id number] : 1950 74 From: Branden jack MD PCP: Dr. Jewel Morel MD Status: [facility] Study: DIAG MAMM W/CAD, BILAT Date of Exam: 07/11/24 Exam# [id number] Ordering Dr: Jewel Morel MD [id number] MAMMOGRAPHY - BILATERAL DIAGNOSTIC REASON FOR EXAM: Male, 74 years old. Left periareolar tenderness. Recent medication change. PERTINENT HISTORY: Non-contributory. TECHNIQUE: Digital bilateral breast herman (3D mammographic acquisition) in the CC and MLO projections. 2-D mediolateral oblique (MLO) and craniocaudad (CC) views of both breasts were obtained. CAD: Full Field Digital Mammography with Computer Added Detection was performed. COMPARISON: None. Baseline examination. FINDINGS: Breast Composition: There are scattered areas of fibroglandular density in the left retroareolar region. There are no dominant masses or suspicious calcifications. No other significant abnormalities are identified. BI/DIAG MAMM W/CAD, BILAT IMPRESSION: Asymmetrical breast tissue where breast tissue is seen in the retroareolar region of the left breast as compared to the right side. This most likely represents gynecomastia. This corresponds to the area of tenderness. Correlation with ultrasound recommended. ASSESSMENT CATEGORY: BIRADS Category 0: Incomplete. Need additional imaging evaluation. A letter regarding these results will be sent to the patient by the facility within 30 days. Approximately 10% of breast cancers are not detected by mammography. A normal mammogram should not delay biopsy of a clinically suspicious abnormality. Electronically Signed: Branden Garg MD at 9:10 EDT , CC: Dr. Jewel Morel MD Vocational Evaluator: Signed Normal [facility] Spine Lumbar without Contras ton 06-17-2024 Spine Lumbar without Contrast [facility] [address] [place], [place] [id number] Spine Lumbar without Contrast MR#: [id number] Acct: [id number] Name: ANGELA RODRIGUESN Rep #: [id number] : 1950 74 From: Jorge Camacho DO PCP: Dr. Jewel Morel MD Status: REG CLI Study: Spine Lumbar without Contrast Date of Exam: Exam# [id number] Ordering Dr: Julián Hill MD [id number] STUDY: CT LUMBAR SPINE WITHOUT CONTRAST REASON FOR EXAM: Male, 74 years old. LUMBAR SPONDYLOLISTHESIS RADIATION DOSAGE (If Supplied By Facility): CTDIvol = ( 24.09 ) mGy, DLP = ( 934.84 ) mGycm TECHNIQUE: The patient was scanned in a multi detector CT scanner. High resolution transaxial imaging was performed. Images were obtained from to . Sagittal and coronal images were reconstructed. Individualized dose optimization techniques were used for this CT. COMPARISON: None FINDINGS: Normal lumbar lordosis. There is no substantial scoliosis. Normal vertebrae of the lumbar spine. L1-2: Normal endplates. Normal disc height and morphology. Normal bilateral facet joints. Normal central canal and bilateral lateral recesses. Normal bilateral intervertebral neural foramina. L2-3: Normal endplates. Normal disc height and morphology. Normal bilateral facet joints. Normal central canal and bilateral lateral recesses. Normal bilateral intervertebral neural foramina. L3-4: Normal endplates. Normal disc height and morphology. Degenerative hypertrophy of the bilateral facet joints. Normal central canal and bilateral lateral recesses. Normal bilateral intervertebral neural foramina. L4-5: Normal endplates. Normal disc height with mild annular bulge. Normal bilateral facet joints. Normal central canal and bilateral lateral recesses. Bulging disc slightly narrowing the bilateral intervertebral neural foramina. L5-S1: Mild spurring at the endplates. Narrowed disc height. Normal bilateral facet joints. Normal central canal and bilateral lateral recesses. Degenerative spurring narrowing the bilateral intervertebral neural foramina, left more than right. Normal visualized paraspinous soft tissue structures. Surgical fixation of the right SI joint. 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 Electronically Signed: Jorge Camacho DO at 23:36 EDT Reading Location ID and State: [facility] / [place] Tel [phone], Service support , CC: Dr. Jewel Morel MD; Dr. Julián Hill MD Vocational Evaluator: Signed Normal [facility] AAA Screeningon 06-06-2024 AAA Screening [facility] [address] [place] [address] AAA Screening 06/06/24 0846 MR#: [id number] Acct: [id number] Name: ANGELA RODRIGUES Rep #: [id number] : 1950 74 From: Jewel Hdz MD Attending Dr: BRANDEN Long Status: REG CLI Ordering Dr: Irene Pinzon Date: 06/06/24 Location: [facility] Sex: M C Admitted: Reason For Study: Hx of Smoking Aorta Measurements Aorta Doppler Measurements Proximal aorta measures2.04cm x 2.10cm. in cross- Peak systolic flow velocities within the proximal sectional axis. aorta measure 90 cm/sec. Proximal aorta measures1.84cm. in longitudinal Peak systolic flow velocities within the mid aorta axis. measure 65 cm/sec. Mid aorta measures1.70cm x 1.84cm. in cross- Peak systolic flow velocities within the distal sectional axis. aorta measure 82 cm/sec. Mid aorta measures1.75cm. in longitudinal axis. Distal aorta measures1.89cm x 1.93cm. in cross- sectional axis. Distal aorta measures1.55cm. in longitudinal axis. Left Iliac Artery Left iliac artery measures 0.76cm x 0.86 cm. in the cross-sectional axis. Left iliac artery measures 0.69 cm. in the longitudinal axis. Peak systolic velocity in the left iliac artery measures 161 cm/sec. Right Iliac Artery Right iliac artery measures 0.95cm x 1.08 cm. in the cross-sectional axis. Right iliac artery measures 0.95 cm. in the longitudinal axis. Peak systolic velocity in the right iliac artery measures 212 cm/sec. Procedure Aorta IVC Iliac vasculature or bypass grafts [id number]. Exam performed in department. VL/AAA Screening Interpretation Summary Aorta patent, normal caliber Bilateral iliac arteries patent, normal caliber Ordering Physician: Irene Pinzon Referring Physician: Jewel Morel Performed By: Valentine Harvey, RDGERI, RVT 06/16/24 1400 Date Jewel Hdz MD CC: BRANDEN Long; Dr. Jewel Morel MD Date Dictated: 06/06/2446 Date Transcribed: 06/16/24 1400 Vocational Evaluator: Signed Normal [facility] Carotid Duplex Ultrasoundon 06-06-2024 Carotid Duplex Ultrasound [facility] [address] [place] [address] Carotid Duplex Ultrasound 06/06/2457 MR#: [id number] Acct: [id number] Name: LILIAANGELA SALDAÑA SAHIL Rep #: [id number] : 1950 74 From: Jewel Hdz MD Attending Dr: BRANDEN Long Status: REG CLI Ordering Dr: Irene Pinzon Date: 06/06/24 Location: [facility] Sex: M C Admitted: Reason For Study: Pulsatile Tinnitus Rt. Velocities/BP Lt. Velocities/BP Prox CCA 89/20 cm/sec. Prox CCA 131/21 cm/sec. Mid CCA 79/16 cm/sec. Mid CCA 99/18 cm/sec. Dist CCA 73/20 cm/sec. Dist CCA 92/17 cm/sec. Prox ICA 89/18 cm/sec. Prox ICA 72/18 cm/sec. Mid ICA 87/31 cm/sec. Mid ICA 103/31 cm/sec. Dist ICA 101/39 cm/sec. Dist ICA 104/33 cm/sec. Rt. ICA/CCA = 1.3. Lt. ICA/CCA = 1.0. Prox ECA 110/15 cm/sec. Prox ECA 87/9 cm/sec. Rt. Vert. 42/10 cm/sec. Lt. Vert. 52/17 cm/sec. Right Extracranial There is heterogeneous, smooth atherosclerotic plaque noted in the right common carotid artery. There is heterogeneous, smooth atherosclerotic plaque noted in the right internal carotid artery. There is intimal thickening but no significant atherosclerotic plaque noted in the right external carotid artery. Antegrade flow is noted in the right vertebral artery. Left Extracranial There is intimal thickening but no significant atherosclerotic plaque noted in the left common carotid artery. There is heterogeneous, irregular atherosclerotic plaque noted in the left internal carotid artery. There is no significant atherosclerotic plaque noted in the left external carotid artery. Antegrade flow is noted in the left vertebral artery. VL/Carotid Duplex Ultrasound Interpretation Summary Mild (<50%) stenosis right extracranial internal carotid. Mild (<50%) stenosis left extracranial internal carotid. Patent and antegrade vertebrals bilaterally. Ordering Physician: Irene Pinzon Referring Physician: Jewel Morel Performed By: Valentine Harvey, LEILANI, RVT 06/16/24 1401 Date Jewel Hdz MD CC: BRANDEN Long; Dr. Jewel Morel MD Date Dictated: 06/06/2457 Date Transcribed: 06/16/24 1401 Vocational Evaluator: Signed Normal [facility] Absolute lymphocyte countOrd ered By: Jewel Morel on 02-26-2024 Lymphocytes Auto (Unsp spec) [#/Vol] 2.85 10*3/uL 0.83-4.51 [facility] Automated lymphocyte count a s percentage of total leukocytesOrdered By: Jewel Morel on 02-26-2024 Lymphocytes/100 WBC Auto (Unsp spec) 39.4 % 19-41 [facility] Basophil percentageOrdered B y: Jewel Morel on 02-26-2024 Basophil percentage < 10.0 IU/mL <15 [facility] Basophils/100 WBC (Bld) 1.1 % 0-1 [facility] Bilirubin [Mass/Vol] 0.40 mg/dL 0.20-1.00 [facility] Comment on above: For patients on eltr ombopag therapy, use of Dimension [place] TBIL is not recommended. Chloride [Moles/Vol] 106 mmol/L 98-107 [facility] Eosinophils/100 WBC (Bld) 1.5 % 0-5 [facility] Glucose [Mass/Vol] 114 mg/dL 74-106 [facility] Comment on above: Fasting Glucose resu lt from 100 to 125 mg/dL suggests IMPAIRED HOMEOSTASIS per A.D.A. criteria. Hemoglobin (Bld) [Mass/Vol] 13.6 g/dL 13.0-16.5 [facility] Monocytes/100 WBC (Bld) 8.0 % 0-10 [facility] Neutrophils (Bld) [#/Vol] 3.6 10*3/uL 2.0-7.7 [facility] Neutrophils/100 WBC (Bld) 49.9 % 47-70 [facility] Potassium [Moles/Vol] 3.8 mmol/L 3.5-5.1 [facility] Protein [Mass/Vol] 7.5 g/dL 6.4-8.2 [facility] Sodium [Moles/Vol] 137 mmol/L 136-145 [facility] WBC (Bld) [#/Vol] 7.2 10*3/uL 4.4-11.0 [facility] Determination of erythrocyte mean corpuscular volume (MCV)Ordered By: Jewel Morel on 02-26-2024 MCV (RBC) [Entitic vol] 86.8 fL 80-94 [facility] Erythrocyte distribution wid th ratioOrdered By: Jewel Morel on 02-26-2024 Erythrocyte distribution width (RBC) [Ratio] 12.9 % 11.6-14.6 [facility] Erythrocyte distribution wid th standard deviationOrdered By: Jewel Morel on 02-26-2024 Erythrocyte distribution width (RBC) [Entitic vol] 40.7 fL 35.1-43.9 [facility] Erythrocyte sedimentation ra teOrdered By: Jewel Morel on 02-26-2024 ESR (Bld) [Velocity] 34 mm/h 0-20 [facility] Hematocrit Auto (Bld) [Volum e fraction]Ordered By: Jewel Morel on 02-26-2024 Hematocrit (Bld) [Volume fraction] 41.5 % 40-54 [facility] Immature granulocytes/100 WB C Auto (Bld)Ordered By: Jewel Morel on 02-26-2024 Immature granulocytes/100 WBC (Bld) 0.100 % 0.0-0.9 [facility] Comment on above: IG% - Immature Granu locytes (promyelocytes, myelocytes and metamyelocytes) > 1% indicates that a LEFT SHIFT is Present. Laboratory - Chemistry and C hemistry - challengeOrdered By: Jewel Morel on 02-26-2024 Albumin/Globulin [Mass ratio] 0.9 {ratio} 0.9-2.4 [facility] ALP [Catalytic activity/Vol] 50 U/L 45-117 [facility] ALT [Catalytic activity/Vol] 23 U/L 16-61 [facility] CO2 [Moles/Vol] 24.0 mmol/L 21.0-32.0 [facility] Ferritin [Mass/Vol] 108 ng/mL 26-388 [facility] Globulin (S) [Mass/Vol] 4.0 g/dL 2.2-4.2 [facility] Urea nitrogen/Creatinine [Mass ratio] 18.8 mg/mg 10-20 [facility] Laboratory - Hematology and Cell countsOrdered By: Jewel Morel on 02-26-2024 MCH (RBC) [Entitic mass] 28.5 pg 27.0-32.0 [facility] MCHC (RBC) [Mass/Vol] 32.8 g/dL 32-36 [facility] Nucleated RBC/100 WBC (Bld) [Ratio] 0 % 0-5 [facility] Platelet mean volume (Bld) [Entitic vol] 10.6 fL 6.2-12.0 [facility] Platelets (Bld) [#/Vol] 345 10*3/uL 150-450 [facility] No Panel InformationOrdered By: Jewel Morel on 02-26-2024 Anti-Nuclear Antibody Screen Negative Negative [facility] Comment on above: Performed at: [facility] [address] Director: Patrick Sotelo PhD, Phone: [phone] C-Reactive Protein Extended Range 11.70 mg/L 0.0-3.0 [facility] Comment on above: C-Reactive Protein ( CRP) provides useful information for thediagnosis, therapy and monitoring of inflammatory processesand associated diseases. For the evaluation of Relative Riskfor Cardiovascular Disease, a High Sensitivity CRP (HSCRP)should be ordered. Estimated GFR (MDRD) Amer 93 mL/min >60 [facility] Comment on above: GFR Calc Estimated GFR (MDRD) Non-Af Amer 77 mL/min >60 [facility] Comment on above: Non- GFR Calc Lyme Disease Total Antibody Negative Negative [facility] Comment on above: Lyme antibodies not detected. Reflex testing is notindicated.No laboratory evidence of infection with B. burgdorferi(Lyme disease). Negative results may occur in patientsrecently infected (less than or equal to 14 days) with B.burgdorferi. If recent infection is suspected, repeattesting on a new sample collected in 7 to 14 days isrecommended. Parathyroid Hormone (Intact) 41.9 pg/mL 18.4-80.1 [facility] Total Complement (CH50) > 60 U/mL >41 [facility] Comment on above: Age Male Female 1 - 30 days Not Estab. Not Estab. 31 days - 6 months >32 >20 7 months - 17 years >39 >39 >17 years >41 >41 NOTE: The adult (>17 years) reference interval range is used to flag abnormals on this report. If the patient is 17 years old or younger, use the table above to determine out of range values.Performed at: [employer] [facility] [id number] Director: Patrick Sotelo PhD, Phone: [phone] Vitamin D 25-Hydroxy 71.2 ng/mL [facility] Comment on above: Vitamin D 25(OH) Sta tus Range Deficiency <20 ng/mL (50nmol/L) Insufficiency 20 - 30 ng/mL (50 - 75 nmol/L) Sufficiency 30 - 100 ng/mL (75 - 250 nmol/L) Toxicity >100 ng/mL (>250 nmol/L) RBC Auto (Bld) [#/Vol]Ordere d By: Jewel Morel on 02-26-2024 RBC (Bld) [#/Vol] 4.78 10*6/uL 4.6-6.2 [facility] Serum or plasma calcium jaydon urement (mass/volume)Ordered By: Jewel Morel on 02-26-2024 Calcium [Mass/Vol] 8.9 mg/dL 8.5-10.1 [facility] Serum or plasma creatinine m easurement (mass/volume)Ordered By: Jewel Morel on 02-26-2024 Creatinine [Mass/Vol] 1.01 mg/dL 0.70-1.30 [facility] Comment on above: The validity of the calculated GFR & GFRAA in patients over 70 years has not been determined. Clinical correlation is essential. Serum or plasma thyroid stim ulating hormone (TSH) measurement (units/volume)Ordered By: Jewel Morel on 02-26-2024 TSH Qn 1.52 uIU/mL 0.358-3.74 [facility] Serum or plasma urea nitroge n measurement (mass/volume)Ordered By: Jewel Morel on 02-26-2024 Urea nitrogen [Mass/Vol] 19 mg/dL 7-18 [facility] Thin prep Papanicolaou smear with manual screeningOrdered By: Jewel Morel on 02-26-2024 Thin prep Papanicolaou smear with manual screening 3.5 g/dL 3.2-5.0 [facility] Thin prep Papanicolaou smear with manual screening 18 U/L 15-37 [facility] Thin prep Papanicolaou smear with manual screening 7 5-15 [facility] No Panel InformationOrdered By: Juan Shultz on 11-27-2023 Prostate Specific Antigen Screen 0.60 ng/mL 0.00-4.00 [facility] Comment on above: This test was perfor med using the TPSA assay method for [employer] system. Values obtained with differentassay methods cannot be used interchangably.When changing PSA assays in the course of monitoring apatient, additional sequential testing should be carriedout to confirm baseline values. CT Lumbar spine WO and W con trast Mirza 10-09-2023 IMPRESSION: 1. No acute abnormality demonstrated. 2. Severe lumbar spondylosis and varying degrees of up to severe facet joint arthropathy, not significantly changed compared with 01/22/2023. RADIOLOGY EXAM: CT SPINE LUMBA R WITH AND WITHOUT CONTRAST; [id number] REASON FOR EXAM: Pain COMPARISON: Lumbar spine MRI 01/22/2023 TECHNIQUE: Helical CT images of the lumbar spine were obtained both before and after the administration of IV contrast. Multiplanar reformats generated at the scanner. Dose reduction technique used: Automated exposure control and/or adjustment of the mA and/or kV according to patient size and/or use of iterative reconstruction technique. FINDINGS: Alignment: Mild retrolisthesis of L5 on S1, similar. Non degenerative osseous findings: -No acute fracture. -No suspicious osseous lesion. -Right-sided sacroiliac fusion screws are intact. No significant bony bridging across the right sacroiliac joint. Degenerative osseous changes: -Severe disc height loss and severe osteophytosis at L5-S1, similar. Mild spondylosis throughout the remainder of the lumbar spine. -Severe left-sided facet arthropathy from L3 through S1 and moderate right-sided facet arthropathy from L2 through L4. Lesser degenerative changes involving the remainder of the facets. -Area of moderate spinal canal narrowing at L3-L4 appears similar compared with the prior MRI. -Mild osteophytosis of the left sacroiliac joint. Visualized paraspinous soft tissues: -No acute abnormality. 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 -Incidentally noted circumaortic left renal veins. -No abnormal enhancement. RADIOLOGY Sergio Moreau MD - 10/09/2023 EXAM: CT SPINE LUMBAR WITH AND WITHOUT CONTRAST; [id number] REASON FOR EXAM: Pain COMPARISON: Lumbar spine MRI 01/22/2023 TECHNIQUE: Helical CT images of the lumbar spine were obtained both before and after the administration of IV contrast. Multiplanar reformats generated at the scanner. Dose reduction technique used: Automated exposure control and/or adjustment of the mA and/or kV according to patient size and/or use of iterative reconstruction technique. FINDINGS: Alignment: Mild retrolisthesis of L5 on S1, similar. Non degenerative osseous findings: -No acute fracture. -No suspicious osseous lesion. -Right-sided sacroiliac fusion screws are intact. No significant bony bridging across the right sacroiliac joint. Degenerative osseous changes: -Severe disc height loss and severe osteophytosis at L5-S1, similar. Mild spondylosis throughout the remainder of the lumbar spine. -Severe left-sided facet arthropathy from L3 through S1 and moderate right-sided facet arthropathy from L2 through L4. Lesser degenerative changes involving the remainder of the facets. -Area of moderate spinal canal narrowing at L3-L4 appears similar compared with the prior MRI. -Mild osteophytosis of the left sacroiliac joint. Visualized paraspinous soft tissues: -No acute abnormality. 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 -Incidentally noted circumaortic left renal veins. -No abnormal enhancement. IMPRESSION IMPRESSION: 1. No acute abnormality demonstrated. 2. Severe lumbar spondylosis and varying degrees of up to severe facet joint arthropathy, not significantly changed compared with 01/22/2023. [employer] [facility] Radiology Study observation (narrative) [employer] [facility] [address] CT Lumbar spine WO and W con trast IVOrdered By: Sergio Moreau on 10-09-2023 [facility] Work Phone: Absolute lymphocyte countOrd ered By: Jewel Morel on 09-11-2023 Lymphocytes Auto (Unsp spec) [#/Vol] 2.31 10*3/uL 0.83-4.51 [facility] Basophil percentageOrdered B y: Jewel Morel on 09-11-2023 Basophils/100 WBC (Bld) 1.2 % 0-1 [facility] Bilirubin [Mass/Vol] 0.40 mg/dL 0.20-1.00 [facility] Comment on above: For patients on eltr ombopag therapy, use of Dimension [place] TBIL is not recommended. Chloride [Moles/Vol] 106 mmol/L 98-107 [facility] Eosinophils/100 WBC (Bld) 2.0 % 0-5 [facility] Glucose [Mass/Vol] 104 mg/dL 74-106 [facility] Comment on above: Fasting Glucose resu lt from 100 to 125 mg/dL suggests IMPAIRED HOMEOSTASIS per A.D.A. criteria. Neutrophils (Bld) [#/Vol] 3.0 10*3/uL 2.0-7.7 [facility] Neutrophils/100 WBC (Bld) 50.2 % 47-70 [facility] Potassium [Moles/Vol] 3.8 mmol/L 3.5-5.1 [facility] Protein [Mass/Vol] 7.5 g/dL 6.4-8.2 [facility] Sodium [Moles/Vol] 138 mmol/L 136-145 [facility] WBC (Bld) [#/Vol] 6.0 10*3/uL 4.4-11.0 [facility] Blood erythrocytes count (nu mber/volume)Ordered By: Jewel Morel on 09-11-2023 RBC (Bld) [#/Vol] 4.81 10*6/uL 4.6-6.2 [facility] Blood hemoglobin measurement (mass/volume)Ordered By: Jewel Morel on 09-11-2023 Hemoglobin (Bld) [Mass/Vol] 13.9 g/dL 13.0-16.5 [facility] Blood lymphocytes/100 leukoc ytesOrdered By: Jewel Morel on 09-11-2023 Lymphocytes/100 WBC (Bld) 38.7 % 19-41 [facility] Blood monocytes/100 leukocyt esOrdered By: Jewel Morel on 09-11-2023 Monocytes/100 WBC (Bld) 7.7 % 0-10 [facility] Blood platelet mean volumeOr dered By: Jewel Morel on 09-11-2023 Platelet mean volume (Bld) [Entitic vol] 10.6 fL 6.2-12.0 [facility] Determination of erythrocyte mean corpuscular volume (MCV)Ordered By: Jewel Morel on 09-11-2023 MCV (RBC) [Entitic vol] 89.2 fL 80-94 [facility] Hematocrit Auto (Bld) [Volum e fraction]Ordered By: Jewel Morel on 09-11-2023 Hematocrit (Bld) [Volume fraction] 42.9 % 40-54 [facility] Laboratory - Chemistry and C hemistry - challengeOrdered By: Jewel Morel on 09-11-2023 ALP [Catalytic activity/Vol] 47 U/L 45-117 [facility] ALT [Catalytic activity/Vol] 26 U/L 16-61 [facility] CO2 [Moles/Vol] 26.0 mmol/L 21.0-32.0 [facility] Globulin (S) [Mass/Vol] 3.8 g/dL 2.2-4.2 [facility] Urea nitrogen/Creatinine [Mass ratio] 24.7 mg/mg 10-20 [facility] Laboratory - CoagulationOrde red By: Jewel Morel on 09-11-2023 aPTT Coag (Bld) [Time] 32.2 s 24.1-36.2 [facility] PT Coag (PPP) [Time] 13.4 s 11.7-14.9 [facility] Laboratory - Hematology and Cell countsOrdered By: Jewel Morel on 09-11-2023 Erythrocyte distribution width (RBC) [Entitic vol] 41.1 fL 35.1-43.9 [facility] Erythrocyte distribution width (RBC) [Ratio] 12.4 % 11.6-14.6 [facility] Immature granulocytes/100 WBC (Bld) 0.200 % 0.0-0.9 [facility] Comment on above: IG% - Immature Granu locytes (promyelocytes, myelocytes and metamyelocytes) > 1% indicates that a LEFT SHIFT is Present. MCH (RBC) [Entitic mass] 28.9 pg 27.0-32.0 [facility] Nucleated RBC/100 WBC (Bld) [Ratio] 0 % 0-5 [facility] MCHC Auto (RBC) [Mass/Vol]Or dered By: Jewel Morel on 09-11-2023 MCHC (RBC) [Mass/Vol] 32.4 g/dL 32-36 [facility] No Panel InformationOrdered By: Jewel Morel on 09-11-2023 Estimated GFR (MDRD) Amer 114 mL/min >60 [facility] Comment on above: GFR Calc Estimated GFR (MDRD) Non-Af Amer 94 mL/min >60 [facility] Comment on above: Non- GFR Calc Thyroid Stimulating Hormone (TSH) 1.24 uIU/mL 0.358-3.74 [facility] Urine Microalbumin/Creatinine Ratio 7.1 mg/g CRE <30 [facility] Platelets bldOrdered By: Jacinda Morel on 09-11-2023 Platelets (Bld) [#/Vol] 342 10*3/uL 150-450 [facility] Serum or plasma albumin jaydon urement (mass/volume)Ordered By: Jewel Morel on 09-11-2023 Albumin [Mass/Vol] 3.7 g/dL 3.2-5.0 [facility] Serum or plasma albumin/glob ulin mass ratioOrdered By: Jewel Morel on 09-11-2023 Albumin/Globulin [Mass ratio] 1.0 {ratio} 0.9-2.4 [facility] Serum or plasma calcium jaydon urement (mass/volume)Ordered By: Jewel Morel on 09-11-2023 Calcium [Mass/Vol] 8.9 mg/dL 8.5-10.1 [facility] Serum or plasma creatinine m easurement (mass/volume)Ordered By: Jewel Morel on 09-11-2023 Creatinine [Mass/Vol] 0.85 mg/dL 0.70-1.30 [facility] Comment on above: The validity of the calculated GFR & GFRAA in patients over 70 years has not been determined. Clinical correlation is essential. Serum or plasma urea nitroge n measurement (mass/volume)Ordered By: Jewel Morel on 09-11-2023 Urea nitrogen [Mass/Vol] 21 mg/dL 7-18 [facility] Thin prep Papanicolaou smear with manual screeningOrdered By: Jewel Morel on 09-11-2023 Thin prep Papanicolaou smear with manual screening 20 U/L 15-37 [facility] Thin prep Papanicolaou smear with manual screening 6 5-15 [facility] Thin prep Papanicolaou smear with manual screening 6.2 mg/L NO RANGE EST. [facility] Thrombin time in platelet po or plasmaOrdered By: Jewel Morel on 09-11-2023 Thrombin time Coag (PPP) [Time] 17.5 sec 0.0-23.0 [facility] Comment on above: Performed at: [address] [id number] Director: Odalis Rodriguez MD, Phone: [phone] Urine creatinine measurement (mass/volume)Ordered By: Jewel Morel on 09-11-2023 Creatinine (U) [Mass/Vol] 87.30 mg/dL NO RANGE EST. [facility] Whole blood international no rmalized ratio (INR)Ordered By: Jewel Morel on 09-11-2023 INR Coag (Bld) [Relative time] 1.0 {INR} [facility] LARGE JOINT/BURSA INJECTION AND/OR ASPIRATIONon 07-11-2023 Radiology Study observation (narrative) [facility] LARGE JOINT/BURSA INJECTION AND/OR ASPIRATIONon 06-15-2023 Jose Delong 07/11/2023 9:58 PM LARGE JOINT/BURSA INJECTION AND/OR ASPIRATION Date/Time: 06/15/2023 [...] fashion. The patient was prepped with Chloraprep. [employer] [facility] [employer] [facility] [place] Unspecified body regionon 06-15-2023 Image Storage This order is to facilitate the storage of the image. [facility] XR SPINE CERVICAL 2 VIEWSon 05-11-2023 XR SPINE CERVICAL 2 VIEWS EXAM: XR SPINE CERVICAL 2 VIEWS HISTORY: Post op TDA COMPARISON: 02/12/2023 TECHNIQUE: 3 views of the cervical spine were obtained. FINDINGS: The C5-C6 vertebra are fused compatible with prior fusion. There is trace retrolisthesis of C5 on C6 measuring 2 mm of doubtful concern. Artificial disc spacers are noted at C4-C5 and C6-C7. There has been some improvement in disc space height since the prior exam. There is prevertebral edema and gas compatible with the recent surgical intervention. No fracture is seen. No unexpected foreign body is seen. Mild left carotid atherosclerotic plaque is noted. IMPRESSION: New artificial disc spacers at C4-C5 and C6-C7 without evidence of complication. Prevertebral edema and gas is likely postoperative. Normal [facility] MRSA SCREENon 05-10-2023 MRSA DNA YANN+probe Ql (Unsp spec) Negative Normal NEGATIVE [facility] STAPH AUREUS SCREEN Negative Normal NEGATIVE [facility] Comment on above: Result Comment: TEST ING PERFORMED BY PCR [place] LARYNGOSCOPY FLEXIBLE DAIJA GNOSTICon 04-23-2023 Vinnie Gruber MD 04/23/2023 1:54 PM The flexible laryngoscope was used to evaluate the patient's upper airway. The base of the tongue and the larynx appeared to be within normal limits. The vocal cords are normal and they are moving symmetrical. [facility] CMP FASTINGon 04-20-2023 A:G RATIO 1.2 RATIO Low 1.3-2.2 [facility] ALBUMIN 4.1 G/dl Normal 3.5-5.0 [facility] ALP [Catalytic activity/Vol] 47 U/L Normal 38-126 [facility] ALT [Catalytic activity/Vol] 43 U/L Normal <50 [facility] AST [Catalytic activity/Vol] 30 U/L Normal 17-59 [facility] Bilirubin [Mass/Vol] 0.6 mg/dL Normal 0.2-1.3 [facility] Calcium [Mass/Vol] 9.3 mg/dL Normal 8.4-10.2 [facility] Chloride [Moles/Vol] 102 mmol/L Normal 98-107 [facility] Comment on above: Result Comment: Plea se note: Triglyceride levels of 600mg/dL or higher may positively bias chloride results by approximately 2.1 mmol CO2 [Moles/Vol] 31 mmol/L High -30 [facility] Creatinine [Mass/Vol] 0.85 mg/dL Normal 0.7-1.2 [facility] EST. GFR, 114 ml/min/1.73sq.m Normal [facility] EST. GFR,Non 94 ml/min/1.73sq.m [facility] GFR Information Average GFR for 70+ years old = 75. Normal [facility] Comment on above: Result Comment: News Commentator kaylah Kidney disease, GFR = <60. Kidney failure, GFR = <15. The GFR estimate is not adjusted for extreme body surface area or acute process, nor has it been validated for women or ethnic groups other than and . Glucose [Mass/Vol] 100 mg/dL Normal 70-100 [facility] Comment on above: Result Comment: NORMAL <100 mg/dL PREDIABETES 101-126 mg/dL DIABETES 126 mg/dL or higher Potassium [Moles/Vol] 4.4 mmol/L Normal 3.5-5.1 [facility] Protein [Mass/Vol] 7.6 g/dL Normal 6.3-8.2 [facility] Sodium [Moles/Vol] 139 mmol/L Normal 137-145 [facility] Urea nitrogen [Mass/Vol] 19 mg/dL Normal 7-20 [facility] LARGE JOINT/BURSA INJECTION AND/OR ASPIRATIONon 04-11-2023 Radiology Study observation (narrative) [facility] LARGE JOINT/BURSA INJECTION AND/OR ASPIRATIONon 03-20-2023 Jose Delong 04/11/2023 1:41 PM LARGE JOINT/BURSA INJECTION AND/OR ASPIRATION Date/Time: 03/20/2023 [...] fashion. The patient was prepped with Chloraprep. [employer] [place] Unspecified body regionon 03-20-2023 Image Storage This order is to facilitate the storage of the image. [facility] CT SPINE CERVICAL WITHOUT CO NTRASTon 02-14-2023 CT SPINE CERVICAL WITHOUT CONTRAST EXAMINATION: CT SPINE CERVICAL WITHOUT CONTRAST HISTORY: Neck pain with prior surgery at C5-C6 and C6-C7. Spondylosis. COMPARISON: Cervical spine MRI from 04/21/2021. TECHNIQUE: CT Cervical spine without IV contrast. Coronal and sagittal reformations were performed. Dose reduction techniques were achieved by using automated exposure control and/or adjustment of mA and/or kV according to patient size and/or use of iterative reconstruction technique. FINDINGS: There is osseous fusion of the C5 and C6 vertebral bodies with prior fusion at this level. There is moderate disc space narrowing and irregularity of endplates at C6-C7 with marked endplate spurring anteriorly on the right at C6-C7. There is mild disc space narrowing and endplate spurring at C4-C5. No acute fracture is identified in the cervical spine. The vertebral body heights are maintained. No focal prevertebral soft tissue swelling is evident. There is no acute abnormality involving visualized intracranial structures. The mastoids are well aerated. The skull base is intact. There is no focal abnormality involving the thyroid gland. The lung apices appear clear. Discogenic change is further evaluated with a dedicated cervical spine MRI on this same date. Please refer to that report for a detailed description. C2-C3: No focal disc herniation is evident. There is no central or foraminal stenosis. C3-C4: There is a diffuse disc bulge and endplate spurring with mild facet arthropathy. No central or foraminal stenosis is evident. C4-C5: There is a broad-based disc-osteophyte complex which effaces the thecal sac with suspected mild to moderate central narrowing and the thecal sac measuring 8 mm in AP dimension. There is moderate right and mild left foraminal narrowing without central stenosis. C5-C6: There is osseous fusion of the vertebral bodies. There is endplate spurring resulting in mild right foraminal narrowing. The thecal sac measures 10 mm in AP dimension. C6-C7: There is a broad-based disc protrusion and uncovertebral spurring resulting in suspected mild central narrowing and moderately severe bilateral foraminal narrowing. IMPRESSION: 1. There is osseous fusion of the C5 and C6 vertebral bodies with solid fusion across the disc space status post surgery. 2. There is moderate degenerative disc disease at C6-C7 with a broad-based disc protrusion and endplate spurring resulting in mild central narrowing and moderately severe bilateral foraminal narrowing. 3. A broad-based disc protrusion at C4-C5 results in this is mild to moderate central narrowing. Please further to the MRI of the cervical spine report to follow with an MRI also performed on this same date. Normal [facility] MRI SPINE CERVICAL WITHOUT C [facility] 02-14-2023 MRI SPINE CERVICAL WITHOUT CONTRAST EXAM: MRI SPINE CERVICAL WITHOUT CONTRAST COMPARISON: Cervical spine MRI from 04/21/2021. HISTORY: Prior cervical fusion. Neck pain. TECHNIQUE: Multiplanar and multisequence imaging of the cervical spine was performed without contrast. FINDINGS: There is solid osseous fusion across the C5-C6 disc space consistent with prior fusion at this level. Moderate to marked endplate spurring is present anteriorly on the right at C6-C7 with mild to moderate associated disc space narrowing at C6-C7. There is also mild disc height loss at C4-C5 and disc desiccation throughout the cervical spine and upper thoracic spine. No acute abnormality is identified involving visualized structures in the posterior fossa or at the craniocervical junction. No focal cord signal abnormality is identified in the cervical cord given motion artifact degrading evaluation throughout the study. There is artifact on the sagittal T2 and STIR images due to motion. C2-C3: Mild to moderate left and mild right-sided facet arthropathy is evident. There is no focal disc herniation. There is no central or foraminal stenosis. C3-C4: There is a mild disc bulge and mild uncovertebral spurring without central or foraminal stenosis. Mild facet arthropathy is evident. C4-C5: A broad-based disc-osteophyte complex is again identified and measures 2 to 3 mm in AP dimension. This results in effacement of the thecal sac and mild to moderate central narrowing with the thecal sac measuring 8 mm in AP dimension compared to 7 mm in AP dimension on the prior study. There is moderate right and mild left-sided facet arthropathy with moderate right and mild left foraminal narrowing. C5-C6: There is osseous fusion of the vertebral bodies with prior surgical fusion at this level. There is endplate spurring and mild right foraminal narrowing without central stenosis. C6-C7: There is a diffuse disc bulge with bilateral uncovertebral/foramin al disc-osteophyte complexes resulting in moderate to severe left and moderate right foraminal narrowing. There is mild central narrowing with the thecal sac measuring 9 mm in AP dimension. C7-T1: There is a diffuse disc bulge with a left foraminal disc-osteophyte complex resulting in mild to moderate left foraminal narrowing. The thecal sac measures 10 mm in AP dimension. IMPRESSION: 1. There is osseous fusion of the C5 and C6 vertebral bodies also seen on the prior study with prior fusion at this level. There is endplate spurring and mild right foraminal narrowing at C5-C6. 2. A broad-based disc-osteophyte complex at C4-C5 results in mild to moderate central narrowing and moderate right and mild left foraminal narrowing as described above. 3. There is a diffuse disc bulge and bilateral uncovertebral/foramin al disc-osteophyte complexes at C6-C7 resulting in mild central narrowing as well as moderate to severe left and moderate right foraminal narrowing at C6-C7. Normal [facility] XR SPINE CERVICAL WITH OBL A ND FLEX/EXTon 02-03-2023 XR SPINE CERVICAL WITH OBL AND FLEX/EXT EXAM TYPE: XR SPINE CERVICAL WITH OBL AND FLEX/EXT EXAM DATE AND TIME: 01/31/2023 4:43 PM EDT INDICATION: 73 years old Male with neck pain COMPARISON: None. TECHNIQUE: 7 views of the cervical spine including flexion and extension lateral views. FINDINGS: No acute fracture or traumatic malalignment. Dens is intact on the open mouth view. C7-T1 articulation is intact. Mild straightening of the usual cervical lordosis. No segmental instability is evident on comparison of flexion and extension views. No listhesis. Previous C5-C6 anterior interbody fusion. The other cervical vertebral bodies are normal in height. There is disc space narrowing at C7-T1 with anterior bridging osteophytosis. No prevertebral soft tissue swelling. IMPRESSION: Previous C5-C6 anterior interbody fusion. Cervical spondylosis, most marked at C6-C7. No acute fracture or traumatic malalignment. Normal [facility] XR HIPS BILATERALon 02-02-20 23 XR HIPS BILATERAL EXAM: XR HIPS BILATERAL HISTORY: Hip Pain COMPARISON: None. TECHNIQUE: 2 views of the right hip, 2 views the left hip and AP view the pelvis standing and FINDINGS: Joint spaces are preserved. The pelvic ring is intact. The soft tissues are unremarkable. The SI joints and symphysis pubis appear intact. IMPRESSION: No acute change. Normal [facility] RADIOLOGY (SCANNED)Ordered B y: Ileana Chavez on 01-31-2023 [facility] Radiology Study observation (narrative) [facility] MR Lumbar spine WO and W con trast Mirza 01-23-2023 IMPRESSION: 1. Broad-based disc bulge with marked ligament flavum thickening and moderate to severe facet arthropathy at the L3-L4 level with moderate central canal narrowing, the central canal measures approximately 6.6 mm in AP diameter. No significant neuroforaminal narrowing visualized. 2. Increased marrow edema noted along the L4 pedicles and along the superior articular process of the facets bilaterally which may be secondary to stress reaction versus degenerative changes. 3. Mild central canal narrowing at the L4-L5 level secondary to a broad-based disc bulge with associated moderate to severe facet arthropathy and ligamentum flavum thickening with the central canal measuring 8.5 mm in AP diameter. 4. Severe disc height loss at L5-S1 with Modic type II degenerative endplate changes. 5. Postsurgical changes secondary to right hemilaminectomy at L5-S1. RADIOLOGY EXAM: MRI SPINE LUMBAR WITH AND WITHOUT CONTRAST HISTORY: Lower back pain COMPARISON: None. TECHNIQUE: Multiplanar multi sequential MR images of the lumbar spine were acquired with and without IV contrast. FINDINGS: Normal lumbar lordotic curvature visualized. The vertebral body heights are preserved. There is trace degenerative retrolisthesis at L5-S1 measuring 3.9 mm. The remainder of the alignment is well maintained. No occult fractures are visualized. There is increased marrow edema noted along the L4 pedicles and along the superior articular process of the facet bilaterally. Modic type II degenerative endplate changes visualized at L5-S1 with severe disc height loss. The conus medullaris terminates at the L1 level. The conus appears normal in size and configuration. There is no evidence for pathologic enhancement within the lumbar spine. L1-L2: No disc herniation/bulge visualized, the central canal and bilateral neuroforamina are patent. L2-L3: Mild broad-based disc bulge visualized, the central canal is patent. Mild to moderate facet arthropathy visualized with no significant neuroforaminal narrowing. L3-L4: Broad-based disc bulge with marked ligamentum flavum thickening and moderate to severe bilateral facet arthropathy visualized, there is moderate central canal narrowing, the central canal measures approximately 6.6 mm in AP diameter. No significant neuroforaminal narrowing visualized. L4-L5: Mild broad-based disc bulge visualized with moderate to severe bilateral facet arthropathy and mild ligamentum flavum thickening, there is mild central canal narrowing. The central canal measures approximately 8.5 mm in AP diameter. No significant neuroforaminal narrowing visualized. L5-S1: Mild disc osteophyte complex visualized, the central canal is patent. Mild to moderate bilateral facet arthropathy visualized with no significant neuroforaminal narrowing. Postsurgical changes secondary to right hemilaminectomy visualized. Normal contour of the abdominal aorta visualized without evidence for aneurysm. RADIOLOGY Po Conde MD - 01/23/2023 EXAM: MRI SPINE LUMBAR WITH AND WITHOUT CONTRAST HISTORY: Lower back pain COMPARISON: None. TECHNIQUE: Multiplanar multi sequential MR images of the lumbar spine were acquired with and without IV contrast. FINDINGS: Normal lumbar lordotic curvature visualized. The vertebral body heights are preserved. There is trace degenerative retrolisthesis at L5-S1 measuring 3.9 mm. The remainder of the alignment is well maintained. No occult fractures are visualized. There is increased marrow edema noted along the L4 pedicles and along the superior articular process of the facet bilaterally. Modic type II degenerative endplate changes visualized at L5-S1 with severe disc height loss. The conus medullaris terminates at the L1 level. The conus appears normal in size and configuration. There is no evidence for pathologic enhancement within the lumbar spine. L1-L2: No disc herniation/bulge visualized, the central canal and bilateral neuroforamina are patent. L2-L3: Mild broad-based disc bulge visualized, the central canal is patent. Mild to moderate facet arthropathy visualized with no significant neuroforaminal narrowing. L3-L4: Broad-based disc bulge with marked ligamentum flavum thickening and moderate to severe bilateral facet arthropathy visualized, there is moderate central canal narrowing, the central canal measures approximately 6.6 mm in AP diameter. No significant neuroforaminal narrowing visualized. L4-L5: Mild broad-based disc bulge visualized with moderate to severe bilateral facet arthropathy and mild ligamentum flavum thickening, there is mild central canal narrowing. The central canal measures approximately 8.5 mm in AP diameter. No significant neuroforaminal narrowing visualized. L5-S1: Mild disc osteophyte complex visualized, the central canal is patent. Mild to moderate bilateral facet arthropathy visualized with no significant neuroforaminal narrowing. Postsurgical changes secondary to right hemilaminectomy visualized. Normal contour of the abdominal aorta visualized without evidence for aneurysm. IMPRESSION IMPRESSION: 1. Broad-based disc bulge with marked ligament flavum thickening and moderate to severe facet arthropathy at the L3-L4 level with moderate central canal narrowing, the central canal measures approximately 6.6 mm in AP diameter. No significant neuroforaminal narrowing visualized. 2. Increased marrow edema noted along the L4 pedicles and along the superior articular process of the facets bilaterally which may be secondary to stress reaction versus degenerative changes. 3. Mild central canal narrowing at the L4-L5 level secondary to a broad-based disc bulge with associated moderate to severe facet arthropathy and ligamentum flavum thickening with the central canal measuring 8.5 mm in AP diameter. 4. Severe disc height loss at L5-S1 with Modic type II degenerative endplate changes. 5. Postsurgical changes secondary to right hemilaminectomy at L5-S1. [facility] MR Lumbar spine WO and W con trast IVOrdered By: Po Conde on 01-23-2023 [facility] Work Phone: MRI SPINE LUMBAR WITH AND WI THOUT CONTRASTon 01-23-2023 MRI SPINE LUMBAR WITH AND WITHOUT CONTRAST EXAM: MRI SPINE LUMBAR WITH AND WITHOUT CONTRAST HISTORY: Lower back pain COMPARISON: None. TECHNIQUE: Multiplanar multi sequential MR images of the lumbar spine were acquired with and without IV contrast. FINDINGS: Normal lumbar lordotic curvature visualized. The vertebral body heights are preserved. There is trace degenerative retrolisthesis at L5-S1 measuring 3.9 mm. The remainder of the alignment is well maintained. No occult fractures are visualized. There is increased marrow edema noted along the L4 pedicles and along the superior articular process of the facet bilaterally. Modic type II degenerative endplate changes visualized at L5-S1 with severe disc height loss. The conus medullaris terminates at the L1 level. The conus appears normal in size and configuration. There is no evidence for pathologic enhancement within the lumbar spine. L1-L2: No disc herniation/bulge visualized, the central canal and bilateral neuroforamina are patent. L2-L3: Mild broad-based disc bulge visualized, the central canal is patent. Mild to moderate facet arthropathy visualized with no significant neuroforaminal narrowing. L3-L4: Broad-based disc bulge with marked ligamentum flavum thickening and moderate to severe bilateral facet arthropathy visualized, there is moderate central canal narrowing, the central canal measures approximately 6.6 mm in AP diameter. No significant neuroforaminal narrowing visualized. L4-L5: Mild broad-based disc bulge visualized with moderate to severe bilateral facet arthropathy and mild ligamentum flavum thickening, there is mild central canal narrowing. The central canal measures approximately 8.5 mm in AP diameter. No significant neuroforaminal narrowing visualized. L5-S1: Mild disc osteophyte complex visualized, the central canal is patent. Mild to moderate bilateral facet arthropathy visualized with no significant neuroforaminal narrowing. Postsurgical changes secondary to right hemilaminectomy visualized. Normal contour of the abdominal aorta visualized without evidence for aneurysm. IMPRESSION: 1. Broad-based disc bulge with marked ligament flavum thickening and moderate to severe facet arthropathy at the L3-L4 level with moderate central canal narrowing, the central canal measures approximately 6.6 mm in AP diameter. No significant neuroforaminal narrowing visualized. 2. Increased marrow edema noted along the L4 pedicles and along the superior articular process of the facets bilaterally which may be secondary to stress reaction versus degenerative changes. 3. Mild central canal narrowing at the L4-L5 level secondary to a broad-based disc bulge with associated moderate to severe facet arthropathy and ligamentum flavum thickening with the central canal measuring 8.5 mm in AP diameter. 4. Severe disc height loss at L5-S1 with Modic type II degenerative endplate changes. 5. Postsurgical changes secondary to right hemilaminectomy at L5-S1. [facility] CREATININE,SERUMon Creatinine [Mass/Vol] 0.98 mg/dL Normal 0.66-1.25 [facility] Comment on above: Performed By: #### C REAT #### [place] [address] EST. GFR, 97 ml/min/1.73sq.m [facility] Comment on above: Performed By: #### C REAT #### [place] [address] EST. GFR,Non 80 ml/min/1.73sq.m [facility] Comment on above: Performed By: #### C REAT #### [place] [address] GFR Information Average GFR for 70+ years old = 75. [facility] Comment on above: Result Comment: News Commentator kaylah Kidney disease, GFR = <60. Kidney failure, GFR = <15. The GFR estimate is not adjusted for extreme body surface area or acute process, nor has it been validated for women or ethnic groups other than and . Performed By: #### C REAT #### [place] [address] MR Lumbar spine WO and W con trast Mirza 01-22-2023 Radiology Study observation (narrative) [facility] XR KNEE RIGHT 3 VIEWSon XR KNEE RIGHT 3 VIEWS EXAM: XR KNEE RIGH T 3 VIEWS INDICATION: Right knee pain, unspecified chronicity COMPARISON: None. TECHNIQUE: Radiographs as described above FINDINGS/IMPRESSION: No degenerative changes. Normal alignment. No osteophytes. No joint effusion. Vascular atherosclerotic soft tissue calcifications. [facility] XR Knee - right 3 Viewson FINDINGS/IMPRESSION: No degenerative changes. Normal alignment. No osteophytes. No joint effusion. Vascular atherosclerotic soft tissue calcifications. RADIOLOGY EXAM: XR KNEE RIGHT 3 VIEWS INDICATION: Right knee pain, unspecified chronicity COMPARISON: None. TECHNIQUE: Radiographs as described above RADIOLOGY Jaya oHwell MD - 01/22/2023 EXAM: XR KNEE RIGHT 3 VIEWS INDICATION: Right knee pain, unspecified chronicity COMPARISON: None. TECHNIQUE: Radiographs as described above IMPRESSION FINDINGS/IMPRESSION: No degenerative changes. Normal alignment. No osteophytes. No joint effusion. Vascular atherosclerotic soft tissue calcifications. [facility] [employer] [facility] Radiology Study observation (narrative) [employer] [facility] [employer] XR Knee - right 3 ViewsOrder ed By: Jaya Howell on 01-22-2023 [facility] Work Phone: Basophil percentageOrdered B y: Dr. Morel on 11-03-2022 Bilirubin [Mass/Vol] 0.40 mg/dL 0.20-1.00 [facility] Comment on above: For patients on eltr ombopag therapy, use of Dim[place] TBIL is not recommended. Chloride [Moles/Vol] 101 mmol/L 98-107 [facility] Cholesterol [Mass/Vol] 160 mg/dL <200 [facility] Comment on above: <200 mg/dL Desirable 200-240 mg/dL Borderline >240 mg/dL High Risk Glucose [Mass/Vol] 109 mg/dL 74-106 [facility] Comment on above: Fasting Glucose resu lt from 100 to 125 mg/dL suggests IMPAIRED HOMEOSTASIS per A.D.A. criteria. Potassium [Moles/Vol] 4.0 mmol/L 3.5-5.1 [facility] Protein [Mass/Vol] 7.6 g/dL 6.4-8.2 [facility] Sodium [Moles/Vol] 136 mmol/L 136-145 [facility] Triglyceride [Mass/Vol] 59 mg/dL <199 [facility] Comment on above: The drugs N-Acetylcy steine and Metamizole may falsely depress this assay.Serum Triglycerides Reference Interval Normal <150 mg/dL Borderline high 150 - 199 mg/dL High 200 - 499 mg/dL Very High > or = 500 mg/dL Laboratory - Chemistry and C hemistry - challengeOrdered By: Dr. Morel on 01-13-2023 ALP [Catalytic activity/Vol] 58 U/L 45-117 [facility] ALT [Catalytic activity/Vol] 28 U/L 16-61 [facility] CO2 [Moles/Vol] 27.0 mmol/L 21.0-32.0 [facility] Globulin (S) [Mass/Vol] 3.7 g/dL 2.2-4.2 [facility] Urea nitrogen/Creatinine [Mass ratio] 15.2 mg/mg 10-20 [facility] No Panel InformationOrdered By: Dr. Morel on 11-03-2022 Estimated GFR (MDRD) Amer 96 mL/min >60 [facility] Comment on above: GFR Calc Estimated GFR (MDRD) Non-Af Amer 79 mL/min >60 [facility] Comment on above: Non- GFR Calc Urine Microalbumin/Creatinine Ratio 7.0 mg/g CRE <30 [facility] Vitamin D 25-Hydroxy 52.6 ng/mL [facility] Comment on above: Vitamin D 25(OH) Sta tus Range Deficiency <20 ng/mL (50nmol/L) Insufficiency 20 - 30 ng/mL (50 - 75 nmol/L) Sufficiency 30 - 100 ng/mL (75 - 250 nmol/L) Toxicity >100 ng/mL (>250 nmol/L) Serum or plasma albumin jaydon urement (mass/volume)Ordered By: Dr. Morel on 11-03-2022 Albumin [Mass/Vol] 3.9 g/dL 3.2-5.0 [facility] Serum or plasma albumin/glob ulin mass ratioOrdered By: Dr. Morel on 11-03-2022 Albumin/Globulin [Mass ratio] 1.1 {ratio} 0.9-2.4 [facility] Serum or plasma calcium jaydon urement (mass/volume)Ordered By: Dr. Morel on 11-03-2022 Calcium [Mass/Vol] 9.2 mg/dL 8.5-10.1 [facility] Serum or plasma cholesterol in HDL measurement (mass/volume)Ordered By: Dr. Morel on 11-03-2022 Cholesterol in HDL [Mass/Vol] 45 mg/dL >40 [facility] Comment on above: The drugs N-Acetylcy steine and Metamizole may falsely depress this assay. Reference Range HDL <40 mg/dL Low HDL Cholesterol HDL >or= 60 mg/dL High HDL Cholesterol Serum or plasma cholesterol in VLDL measurement (mass/volume)Ordered By: Dr. Morel on 11-03-2022 Cholesterol in VLDL [Mass/Vol] 12 mg/dL 5-40 [facility] Serum or plasma creatinine m easurement (mass/volume)Ordered By: Dr. Morel on 11-03-2022 Creatinine [Mass/Vol] 0.99 mg/dL 0.70-1.30 [facility] Comment on above: The validity of the calculated GFR & GFRAA in patients over 70 years has not been determined. Clinical correlation is essential. Serum or plasma low density lipoprotein (LDL) cholesterol measurement (mass/volume)Ordered By: Dr. Morel on 11-03-2022 Cholesterol in LDL [Mass/Vol] 103 mg/dL 0-130 [facility] Serum or plasma urea nitroge n measurement (mass/volume)Ordered By: Dr. Morel on 11-03-2022 Urea nitrogen [Mass/Vol] 15 mg/dL 7-18 [facility] Thin prep Papanicolaou smear with manual screeningOrdered By: Dr. Morel on 11-03-2022 Thin prep Papanicolaou smear with manual screening 17 U/L 15-37 [facility] Thin prep Papanicolaou smear with manual screening 8 5-15 [facility] Thin prep Papanicolaou smear with manual screening 5.4 mg/L NO RANGE EST. [facility] Urine creatinine measurement (mass/volume)Ordered By: Dr. Morel on 11-03-2022 Creatinine (U) [Mass/Vol] 76.90 mg/dL NO RANGE EST. [facility] No Panel InformationOrdered By: SUSIE Ortiz on 09-21-2022 Prostate Specific Antigen Screen 1.32 ng/mL 0.00-4.00 [facility] Comment on above: This test was perfor med using the TPSA assay method for the[employer] chemistry system. Values obtained with differentassay methods cannot be used interchangably.When changing PSA assays in the course of monitoring apatient, additional sequential testing should be carriedout to confirm baseline values. Basophil percentageon 2021 Basophil percentage < 0.9 mg/dL 0.70-1.30 [facility] Work Phone: No Panel Informationon 08-07 Bedside Estimated GFR (eGFR) > 60.0000 mL/min >60 [facility] Work Phone: Absolute lymphocyte counton 02-17-2022 Lymphocytes Auto (Unsp spec) [#/Vol] 2.62 10*3/uL 0.83-4.51 [facility] Work Phone: Basophil percentageon 2021 Basophils/100 WBC (Bld) 0.7 % 0-1 [facility] Work Phone: [phone] Bilirubin [Mass/Vol] 0.20 mg/dL 0.20-1.00 [facility] Work Phone: Comment on above: For patients on eltr ombopag therapy, use of [place] TBIL is not recommended. Chloride [Moles/Vol] 105 mmol/L 98-107 [facility] Work Phone: Eosinophils/100 WBC (Bld) 2.4 % 0-5 [facility] Work Phone: Glucose [Mass/Vol] 95 mg/dL 74-106 [facility] Work Phone: Neutrophils (Bld) [#/Vol] 3.5 10*3/uL 2.0-7.7 [facility] Work Phone: [phone] Neutrophils/100 WBC (Bld) 51.7 % 47-70 [facility] Work Phone: [phone] Potassium [Moles/Vol] 3.7 mmol/L 3.5-5.1 [facility] Work Phone: [phone] Protein [Mass/Vol] 8.1 g/dL 6.4-8.2 [facility] Work Phone: [phone] Sodium [Moles/Vol] 137 mmol/L 136-145 [facility] Work Phone: [phone] WBC (Bld) [#/Vol] 6.7 10*3/uL 4.4-11.0 [facility] Work Phone: Blood erythrocytes count (nu mber/volume)on 02-17-2022 RBC (Bld) [#/Vol] 5.02 10*6/uL 4.6-6.2 [facility] Work Phone: Blood hemoglobin measurement (mass/volume)on 02-17-2022 Hemoglobin (Bld) [Mass/Vol] 14.6 g/dL 13.0-16.5 [facility] Work Phone: Blood lymphocytes/100 leukoc yteson 02-17-2022 Lymphocytes/100 WBC (Bld) 38.9 % 19-41 [facility] Work Phone: Blood monocytes/100 leukocyt eson 02-17-2022 Monocytes/100 WBC (Bld) 6.2 % 0-10 [facility] Work Phone: Blood platelet mean volumeon 02-17-2022 Platelet mean volume (Bld) [Entitic vol] 10.9 fL 6.2-12.0 [facility] Work Phone: Determination of erythrocyte mean corpuscular volume (MCV)on 02-17-2022 MCV (RBC) [Entitic vol] 87.8 fL 80-94 [facility] Work Phone: Hematocrit Auto (Bld) [Volum e fraction]on 02-17-2022 Hematocrit (Bld) [Volume fraction] 44.1 % 40-54 [facility] Work Phone: Laboratory - Chemistry and C hemistry - challengeon 02-17-2022 ALP [Catalytic activity/Vol] 46 U/L 45-117 [facility] Work Phone: ALT [Catalytic activity/Vol] 36 U/L 16-61 [facility] Work Phone: CO2 [Moles/Vol] 26.0 mmol/L 21.0-32.0 [facility] Work Phone: Globulin (S) [Mass/Vol] 4.2 g/dL 2.2-4.2 [facility] Work Phone: Urea nitrogen/Creatinine [Mass ratio] 20.3 mg/mg 10-20 [facility] Work Phone: Laboratory - Hematology and Cell countson 02-17-2022 Erythrocyte distribution width (RBC) [Entitic vol] 41.0 fL 35.1-43.9 [facility] Work Phone: Erythrocyte distribution width (RBC) [Ratio] 12.8 % 11.6-14.6 [facility] Work Phone: Immature granulocytes/100 WBC (Bld) 0.100 % 0.0-0.9 [facility] Work Phone: Comment on above: IG% - Immature Granu locytes (promyelocytes, myelocytes and metamyelocytes) > 1% indicates that a LEFT SHIFT is Present. MCH (RBC) [Entitic mass] 29.1 pg 27.0-32.0 [facility] Work Phone: Nucleated RBC/100 WBC (Bld) [Ratio] 0 % 0-5 [facility] Work Phone: MCHC Auto (RBC) [Mass/Vol]on 02-17-2022 MCHC (RBC) [Mass/Vol] 33.1 g/dL 32-36 [facility] Work Phone: No Panel Informationon 02-17 Estimated GFR (MDRD) Amer 97 mL/min >60 [facility] Work Phone: Comment on above: GFR Calc Estimated GFR (MDRD) Non-Af Amer 80 mL/min >60 [facility] Work Phone: Comment on above: Non- GFR Calc Urine Microalbumin/Creatinine Ratio TNP [facility] Work Phone: Comment on above: Test not performed Platelets bldon 02-17-2022 Platelets (Bld) [#/Vol] 326 10*3/uL 150-450 [facility] Work Phone: Serum or plasma albumin jaydon urement (mass/volume)on 02-17-2022 Albumin [Mass/Vol] 3.9 g/dL 3.2-5.0 [facility] Work Phone: Serum or plasma albumin/glob ulin mass ratioon 02-17-2022 Albumin/Globulin [Mass ratio] 0.9 {ratio} 0.9-2.4 [facility] Work Phone: Serum or plasma calcium jaydon urement (mass/volume)on 02-17-2022 Calcium [Mass/Vol] 9.0 mg/dL 8.5-10.1 [facility] Work Phone: Serum or plasma creatinine m easurement (mass/volume)on 02-17-2022 Creatinine [Mass/Vol] 0.99 mg/dL 0.70-1.30 [facility] Work Phone: Comment on above: The validity of the calculated GFR & GFRAA in patients over 70 years has not been determined. Clinical correlation is essential. Serum or plasma urea nitroge n measurement (mass/volume)on 02-17-2022 Urea nitrogen [Mass/Vol] 20 mg/dL 7-18 [facility] Work Phone: Thin prep Papanicolaou smear with manual screeningon 02-17-2022 Thin prep Papanicolaou smear with manual screening 24 U/L 15-37 [facility] Work Phone: Thin prep Papanicolaou smear with manual screening 6 5-15 [facility] Work Phone: Thin prep Papanicolaou smear with manual screening < 5.0 mg/L NO RANGE EST. [facility] Work Phone: Urine creatinine measurement (mass/volume)on 02-17-2022 Creatinine (U) [Mass/Vol] 54.80 mg/dL NO RANGE EST. [facility] Work Phone: Vital Signs Date Time Vital Sign Value Performing Clinician Facility 04-06-2025 13:41-0400 Body height 177.[address] Jewel Morel MD Work Phone: [facility] 04-06-2025 13:41-0400 Body mass index (BMI) [Ratio] 32.7 kg/m2 Dr. Jewel Morel MD Work Phone: [facility] 04-06-2025 13:41-0400 Body weight 103.[address] Jewel Morel MD Work Phone: [facility] 04-06-2025 13:41-0400 Diastolic blood pressure 84 mm[Hg] Dr. Jewel Morel MD Work Phone: [facility] 04-06-2025 13:41-0400 Respiratory rate 16 /min Dr. Jewel Morel MD Work Phone: [facility] 04-06-2025 13:41-0400 Systolic blood pressure 143 mm[Hg] Dr. Jewel Morel MD Work Phone: [facility] 09-20-2023 13:50-0500 Diastolic blood pressure 73 mm[Hg] Julián Hill MD Work Phone: [facility] 09-20-2023 13:50-0500 Heart rate 80 /min Julián Hill MD Work Phone: [facility] 09-20-2023 13:50-0500 Respiratory rate 16 /min Julián Hill MD Work Phone: [facility] 09-20-2023 13:50-0500 SaO2% (BldA) [Mass fraction] 96 % Julián Hill MD Work Phone: [facility] 09-20-2023 13:50-0500 Systolic blood pressure 155 mm[Hg] Julián Hill MD Work Phone: [facility] 09-20-2023 13:00-0500 Body temperature 97 [degF] Julián Hill MD Work Phone: [facility] 09-20-2023 09:29-0500 Body height 177.8 cm Julián Hill MD Work Phone: [facility] 06-15-2023 13:36-0400 Body height 177.8 cm Charlotte Mane MD Work Phone: [facility] 06-15-2023 13:36-0400 Body mass index (BMI) [Ratio] 32.71 kg/m2 Charlotte Mane MD Work Phone: [facility] 06-15-2023 13:36-0400 Body weight 103.42 kg Charlotte Mane MD Work Phone: [facility] 04-23-2023 13:25-0400 Body height 177.8 cm Vinnie Gruber MD Work Phone: [facility] 04-23-2023 13:25-0400 Body mass index (BMI) [Ratio] 33.15 kg/m2 Vinnie Gruber MD Work Phone: [facility] 04-23-2023 13:25-0400 Body temperature 97.39 [degF] Vinnie Gruber MD Work Phone: [facility] 04-23-2023 13:25-0400 Body weight 104.78 kg Vinnie Gruber MD Work Phone: [facility] 04-20-2023 09:23-0400 Body height 177.8 cm Charlotte Mane MD Work Phone: [facility] 04-20-2023 09:23-0400 Body mass index (BMI) [Ratio] 33 kg/m2 Charlotte Mane MD Work Phone: [facility] 04-20-2023 09:23-0400 Body weight 104.33 kg Charlotte Mane MD Work Phone: [facility] 03-20-2023 13:21-0400 Body height 177.8 cm Charlotte Mane MD Work Phone: [facility] 03-20-2023 13:21-0400 Body mass index (BMI) [Ratio] 31.41 kg/m2 Charlotte Mane MD Work Phone: [facility] 03-20-2023 13:21-0400 Body weight 99.3 kg Charlotte Mane MD Work Phone: [facility] Encounters Encounter Date Encounter Type Care Provider Facility Start: 06-04-2025 ambulatory Cherry Hall Facilit y:[facility] Start: 06-01-2025 Encounter for other preprocedural examination Cherry Rafael [facility] Start: 05-26-2025 ambulatory Cherry Rafael Facilit y:[facility] Start: 04-06-2025 End: 04-06-[address] Cherry Hall MD -[facility] Work Phone: Start: 04-06-2025 End: 04-06-[address] Jewel Morel MD Work Phone: [facility] Work Phone: Start: 12-01-2024 End: 12-01-2024 ambulatory Jewel Morel Facility:[facility] Start: 07-11-2024 End: 07-11-2024 ambulatory Jewel Morel Facility:[facility] Start: 06-17-2024 End: 06-17-2024 ambulatory Julián Hill Facility:[facility] Start: 06-06-2024 ambulatory Irene Pinzon [facility] Start: 06-06-2024 End: 06-06-2024 [facility] Start: 02-26-2024 End: 02-26-2024 ambulatory [facility] Work Phone: Start: 02-26-2024 End: 02-26-2024 Patient encounter procedure [facility] Start: 12-20-2023 End: 12-20-2023 ambulatory [facility] Work Phone: Start: 12-20-2023 End: 12-20-2023 Patient encounter procedure [facility]-Radiology, [facility] Work Phone: Start: 11-27-2023 End: 11-27-2023 ambulatory [facility] Work Phone: Start: 11-27-2023 End: 11-27-2023 [facility] Start: 10-09-2023 End: 10-09-2023 Subsequent hospital visit by physician Julián Hill MD Work Phone: [facility] SC[facility] Comment on above: Arrived Start: 10-04-2023 End: 10-04-2023 ambulatory [facility] Work Phone: Start: 10-04-2023 End: 10-04-2023 Patient encounter procedure [facility]-Radiology, [facility] Work Phone: Start: 09-20-2023 End: 09-20-2023 ambulatory [facility] Start: 09-20-2023 End: 09-20-2023 Subsequent hospital visit by physician Julián Hill MD Work Phone: [facility] Per[facility] Comment on above: Sacroiliitis Start: 09-12-2023 [facility] Start: 09-12-2023 [facility] Start: 09-11-2023 End: 09-11-2023 Patient encounter procedure [facility] Work Phone: Start: 08-10-2023 End: 08-10-2023 ambulatory [facility] Work Phone: Start: 08-10-2023 End: 08-10-2023 Patient encounter procedure [facility] Work Phone: Start: 07-27-2023 ambulatory CHARLOTTE MANE [facility] Start: 06-15-2023 ambulatory CHARLOTTE MANE [facility] Start: 06-15-2023 End: 06-15-2023 Patient encounter procedure Charlotte Mane MD Work Phone: [facility] Comment on above: 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); Pain of both sacroiliac joints; Spondylolisthesis of lumbar region; Spinal stenosis, lumbar region, with neurogenic claudication; Metatarsalgia of left foot Start: 03-20-2023 [facility] Start: 03-20-2023 End: 03-20-2023 Office outpatient visit 15 minutes Charlotte Mane MD Work Phone: [facility] Comment on above: 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) Start: 03-20-2023 End: 03-20-2023 Subsequent hospital visit by physician Charlotte Mane MD Work Phone: [facility] Procedure Images Comment on above: Arrived Start: 02-28-2023 ambulatory [facility] Start: 02-12-2023 ambulatory [facility] Start: 02-12-2023 End: 02-12-2023 Subsequent hospital visit by physician Julián Hill MD Work Phone: [facility] [place] [facility] CT Scan Comment on above: Arrived Start: 02-09-2023 ambulatory JULIÁNJAIRO [facility] Start: 02-01-2023 ambulatory [facility] Start: 01-31-2023 End: 01-31-2023 Subsequent hospital visit by physician Julián Hill MD Work Phone: [facility] Comment on above: Arrived Start: 01-31-2023 ambulatory [facility] Start: 01-22-2023 ambulatory [facility] Start: 01-22-2023 End: 01-22-2023 Subsequent hospital visit by physician Julián Hill MD Work Phone: [facility] Comment on above: Arrived Start: 01-09-2023 [facility] Start: 12-18-2022 End: 12-18-2022 ambulatory [facility] Work Phone: Start: 12-18-2022 End: 12-18-2022 Patient encounter procedure [facility]-Radiology, [facility] Start: 11-03-2022 End: 11-03-2022 [facility] Start: 09-21-2022 End: 09-21-2022 ambulatory [facility] Work Phone: Start: 09-21-2022 End: 09-21-2022 Patient encounter procedure [facility] Start: 08-07-2022 End: 08-07-2022 Patient encounter procedure [facility]-MRI - [facility] Start: 02-17-2022 End: 02-17-2022 [facility] Procedures Date Procedure Procedure Detail Performing Clinician Start: 12-20-2023 Radiologic examinati on of lumbosacral spine, complete, with bending views Start: 10-09-2023 Ct lumbar spine w/o & w/contrast material Julián Hill MD Work Phone: Start: 10-04-2023 X-ray of lumbar spin e, two or three views Start: 08-10-2023 X-ray of cervical spine Start: 06-15-2023 Arthrocentesis aspir &/inj major jt/bursa w/us Charlotte Mane MD Work Phone: Start: 06-15-2023 US Unspecified body region Charlotte Mane MD Work Phone: Start: 05-25-2023 X-ray of cervical spine Start: 04-23-2023 Laryngoscopy flexibl e diagnostic Vinnie [...] 3 views Julián Hill MD Work Phone: Start: 12-18-2022 Complete x-ray serie s of lumbar spine with bending views Start: 08-07-2022 MRI of lower limb wi th contrast Plan of Treatment Date Care Activity Detail Author Start: 05-07-2029 Tetanus vaccination [facility] Start: 04-20-2024 Potassium [Moles/volume] in Serum or Plasma POTASSIUM [facility] Start: 01-03-2024 Screening for malign ant neoplasm of colon COLORECTAL CANCER SCREENING DISCUSSION [facility] Start: 09-20-2023 End: 09-20-2023 Arthrodesis sacroiliac joint percutaneous ARTHRODESIS SACROILIAC JOINT MINIMALLY INVASIVE W/ TRANSFIXING DEVICE Sacroiliitis 09/20/2023 10:19 AM EST [facility] Start: 09-20-2023 End: 09-20-2023 Fluoroscopy up to 1 hour physician/qhp time FLUOROSCOPY IN OR Sacroiliitis 09/20/2023 10:19 AM EST [facility] Start: 07-27-2023 End: 07-27-2023 Patient encounter procedure 07/27/2023 12:00 PM EDT Office Visit [facility] [place] [facility] [address] [place] [address] Charlotte Mane MD [address] [place] [address] [facility] Start: 06-22-2023 COVID-19 VACCINE ( season) COVID-19 VACCINE ( season) [facility] Start: 06-22-2023 Influenza vaccination [facility] Start: 06-15-2023 End: 06-15-2023 Patient encounter procedure 06/15/2023 1:40 PM EDT Office Visit [facility] [place] [address] [place] [address] Charlotte Mane MD [address] [place] [address] [facility] Start: 04-23-2023 End: 04-23-[address] [facility] Start: 04-20-2023 End: 04-20-2023 Admission to establishment 04/20/2023 1:00 PM EDT Pre-Operative Nurse Assessment [facility] Pre Admission [address] [place] [id number] [facility] Start: 04-20-2023 End: 04-20-2023 Patient encounter procedure [facility] Start: 03-20-2023 End: 03-20-2023 Patient encounter procedure 03/20/2023 Office Visit Orthopaedics Charlotte Mane MD [address] [place] [address] [facility] Start: 02-09-2023 End: 02-09-2023 Patient encounter procedure 02/09/2023 Office Visit Orthopaedics Charlotte Mane MD [address] [facility] [address] [facility] [address] [place] [address] [facility] Start: 04-07-2020 Potassium [Moles/volume] in Serum or Plasma POTASSIUM [facility] Start: 01-13-2017 Abdominal aortic aneurysm screening ABDOMINAL AORTIC ANEURYSM HIGH RISK SCREEN [facility] Start: 01-13-2017 Pneumococcal vaccination PNEUMOCOCCAL VACCINE SERIES (1 - PCV) [facility] Start: 01-13-2002 Prostate specific antigen measurement PROSTATE CANCER SCREENING DISCUSSION [facility] Start: 01-13-2002 Zoster vaccine hzv l gregg for subcutaneous use ZOSTER (SHINGLES) VACCINE (1 of 2) [facility] Start: 1992 Lipid panel LIPID SCREENING [facility] Start: 1950 COVID-19 VACCINE (#1) COVID-19 VACCI NE (#1) [facility] Start: 1950 Hepatitis C screening HEPATITI S C VIRUS SCREENING [facility] End: 02-12-2023 CT Cervical spine WO contrast [facility] Work Phone: Comment on above: 1 Occurrences starti ng 02/12/2023 until 02/12/2023 End: 09-20-2023 RF Unspecified body region Views during surgery [facility] Comment on above: One Time for 1 Occur rences starting 09/20/2023 until 09/20/2023 End: 01-31-2023 XR Hip - bilateral Views [facility] Work Phone: Comment on above: 1 Occurrences starti ng 01/31/2023 until 01/31/2023 Immunizations Immunization Date Immunization Notes Care Provider Fa cilicee 08-03-2021 influenza virus vaccine, unspecified formulation Julián Hill MD Work Phone: [facility] Payers Date Payer Category Payer Self-pay [id number] 2015 Unknown [id number] 2014 Unknown [id number] 2014 Unknown [employer] [id number] 2014-Present [address] [place] [address] [id number] .[id number] 1952 Unknown [id number] 2.16.840.1.090729.3.579.2.983 1952 Unknown [id number] 2.16.840.1.538814.3.579.2.983 1952 Unknown [id number] 2.16.840.1.673580.3.579.2.983 1952 Unknown [id number] 2.16.840.1.848546.3.579.2.983 1952 Unknown [id number] 2.16.840.1.808356.3.579.2.983 1952 Unknown [id number] 2.16.840.1.846573.3.579.2.983 1952 Unknown [id number] 2.16.840.1.001656.3.579.2.983 1952 Unknown [id number] 2.16.840.1.417960.3.579.2.983 1952 Unknown [id number] 2.16.840.1.047647.3.579.2.983 1952 Unknown [id number] 2.16.840.1.939644.3.579.2.983 1952 Unknown [id number] 2.16.840.1.457906.3.579.2.983 1952 Unknown [id number] 2.16.840.1.215322.3.579.2.983 1952 Unknown [id number] 2.16.840.1.003701.3.579.2.983 1952 Unknown [id number] 2.16.840.1.046470.3.579.2.983 1952 Unknown [id number] 2.16.840.1.489505.3.579.2.983 1952 Unknown [id number] 2.16.840.1.144112.3.579.2.983 1952 Unknown [id number] 2.16.840.1.660159.3.579.2.983 1952 Unknown [id number] 2.16.840.1.667969.3.579.2.983 1952 Unknown [id number] 2.16.840.1.817323.3.579.2.983 1952 Unknown [id number] 2.16.840.1.614286.3.579.2.983 1952 Unknown [id number] 2.16.840.1.112146.3.579.2.983 1952 Unknown [id number] 2.16.840.1.213295.3.579.2.983 1952 Unknown [id number] 2.16.840.1.395001.3.579.2.983 1952 Unknown [id number] 2.16.840.1.716880.3.579.2.983 1952 Unknown [id number] 2.16.840.1.937429.3.579.2.983 1952 Unknown [id number] 2.16.840.1.808931.3.579.2.983 1952 Unknown [id number] 2.16.840.1.814041.3.579.2.983 1952 Unknown [id number] 2.16.840.1.555855.3.579.2.983 1952 Unknown [id number] 2.16.840.1.720431.3.579.2.983 Unknown [id number] 2.16.840.1.479828.3.579.2.462 Unknown [id number] 2.16.840.1.334827.3.579.2.462 Unknown [id number] 2.16.840.1.429054.3.579.2.462 Unknown [id number] 2.16.840.1.648807.3.579.2.462 Unknown [id number] 2.16.840.1.221643.3.579.2.462 Unknown [id number] 2.16.840.1.221126.3.579.2.462 Unknown [id number] 2.16.840.1.295143.3.579.2.462 Unknown [id number] 2.16.840.1.635959.3.579.2.462 Social History Date Type Detail Facility Start: 09-20-2021 End: 09-20-2021 Tobacco smoking status [facility] Unknown if ever smoked [facility] Start: 1950 Sex Assigned At Male [facility] Start: 06-12-2019 End: 05-22-2024 Tobacco smoking status NHIS Ex-smoker [facility] End: 10-22-2009 History of tobacco use Current smoker [facility] End: 10-22-2009 History of tobacco use [facility] Start: 06-12-2019 End: 04-23-2023 Tobacco use and exposure Smokeless tobacco non-user [facility] Start: 06-16-2019 End: 09-21-2023 Alcohol intake Lifetime non-drinker (finding) [facility] Start: 06-12-2019 History SDOH Alcohol Frequency 1 [facility] Start: 1950 Sex Assigned At Not on file [facility] [employer] [facility] Start: 04-07-2019 End: 09-21-2023 History of Social function [facility] Start: 04-07-2019 End: 09-21-2023 Alcohol Use Disorder Identification Test - Consumption [AUDIT-C] [facility] Frequency of Alcohol Consumption Never [facility] Medical Equipment Procedure Code Equipment Code Equipment Origin al Text Equipment Identifier Dates [employer]ix M6 Artificial Cervical Disc. Size: 7ll (7mm Hx 17mm Wx 16mm D) [id number] Start: 05-10-2023 [employer] Fireb[employer] d Si Fusion System [id number] Start: 09-20-2023 Comment on above: Description: Implant ed in right sacroiliac joint Goals Date Patient Goal Desired Activity /State Personal health goal Comment on above: Formatting of this n ote might be different from the original. Therapy Problem List: SI fusion pre-op session needed today. Pain/spasm in the right LB areas. Decreased AROM at the low back with pain Difficulty with change of positions and sleeping on the right side. Static standing bothersome for any length of time. Gait/steps usage is effected alex over the right lower extremity Forward flexed hip and low back posture in standing. Limited in house work/leisure/ADL activity. In and out of car reported painful and slowed. So is in out bed. Therapy Goals: Pre-op SI fusion education and training. Short term: Pt will demonstrate independence and understanding with HEP and safety precautions to prepare for surgery. (Met today) Pt will demonstrate competence with gait/step/curb training (as appropriate) and bed mobility to prepare for safety after surgery. 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 Return to normal activity of house work/leisure/ADLs with post op therapy as ordered by surgeon if needed. Clinical Notes 03-20-2023 to 09-20-2023 Jazmin Valencia RN - 09/20/2023 2:39 PM Ron Valencia RN - 09/20/2023 2:39 PM Ron Valencia RN - 09/20/2023 2:36 PM Ron Valencia RN - 09/20/2023 1:50 PM ESTJazmin Valencia RN - 09/20/2023 12:59 PM EST Note Date & Type Note Facility 09-20-2023 Nurse Surgical operation note Adrianne from OT here talking with patient. [facility] 09-20-2023 Nurse Note Adrianne from OT here [...] PACU via cart by DONNYRN and RR, CUSTOMER SERVICE AGENT. Monitors applied and report given to MELIDA JIMENEZ. documented in this encounter [facility] 09-20-2023 Nurse Surgical operation note Discharge instructions reviewed with patient and his ; verbalized understanding and copy given to patient. It is best if you have a responsible adult with you for the next 24 hours. [employer] [facility] 09-20-2023 Nurse Surgical operation note Kuldip from PT here talking with patient. . [facility] [employer] [facility] 09-20-2023 History of Presen t illness Narrative 09/20/23 0632 Surgery Information RN Approved Intervention as tolerated [...] Completed? yes Therapist Information License # [id number] General Information Pertinent History of Current Problem The patient is 73 year old male with sacroiliitis who underwent Right SI fixation. The patient was referred to physical therapy for post procedure education & mobility. Kuldip Galvan PT documented in this encounter [facility] 09-20-2023 Nurse Surgical operation note Discharged per stretcher to outpatient room 11 in stable condition and without complaints. Call light in reach. Pulse ox on; alarms/volume on. Stretcher in lowest position and brake on. [facility] 09-20-2023 Hospital Discharg e instructions Jazmin Valencia [...] this carefully. Please attend family, community and voodoo events as soon as possible after your [...] be faxed. You had a dose of [place] today at 1:02 pm while in the hospital; the earliest you may take your next dose is 7 Pm this evening. documented in this encounter [facility] 09-20-2023 Nurse Surgical operation note Denies nausea. States is warm enough. Demonstrates ability to deep breathe/cough effectively. [facility] 09-20-2023 Nurse Surgical operation note Patient transported to PACU via cart by DONNYRN and LINA AVILA. Monitors applied and report given to MELIDA JIMENEZ. [facility] 09-20-2023 Surgery Postoperative evaluation and management note POST OPERATIVE/PROCEDURE NOTE Angela Rodrigues ([id number]) SURGEON Surgeon(s) and Role: * Julián Hill MD - Primary JACQUARD PLATE MAKER Skye ANESTHESIOLOGIST CUSTOMER SERVICE AGENT: Charlotte Means APRN-CUSTOMER SERVICE AGENT SURGICAL STAFF Clinical Engineer: Rae Hercules RN Scrub Person: Monica Morel Surveillance Manager: Lila Garrett RN PROCEDURE PERFORMED Procedure(s) (LRB): [...] MD September 20, 2023 11:42 AM [facility] 09-20-2023 Miscellaneous Notes POST OPERATIVE/PROCEDURE NOTE Angela Rodrigues ([id number]) SURGEON Surgeon(s) and Role: * Julián Hill MD - Primary JACQUARD PLATE MAK[employer] Skye ANESTHESIKRISTIN CUSTOMER SERVICE AGENT: Charlotte Means APRN-CUSTOMER SERVICE AGENT SURGICAL STAFF Clinical Engineer: Rae Hercules RN Scrub Person: Monica Morel Surveillance Manager: Lila Garrett RN PROCEDURE PERFORMED Procedure(s) (LRB): [...] 11:42 AM POST OPERATIVE/PROCEDURE NOTE Angela Rodrigues ([id number]) SURGEON Surgeon(s) and Role: * Julián Hill MD - Primary JACQU[employer] PLATE MAK[employer] Skye ANESTHESIOLOGIST CUSTOMER SERVICE AGENT: MAG Wick SURGICAL STAFF Clinical Engineer: Rae Hercules RN Scrub Person: Monica Morel Surveillance Manager: Lila Garrett RN PROCEDURE PERFORMED Procedure(s) (LRB): [...] 20, 2023 10:13 AM documented in this [facility] 09-20-2023 Surgery Postoperative evaluation and management note POST OPERATIVE/PROCEDURE NOTE Angela Rodrigues ([id number]) SURGEON Surgeon(s) and Role: * Julián Hill MD - Primary JACQUARD PLATE MAKER Skye ANESTHESIKRISTIN CUSTOMER SERVICE AGENT: RITA WickCUSTOMER SERVICE AGENT SURGICAL STAFF Clinical Engineer: Rae Hercules RN Scrub Person: Monica Morel Surveillance Manager: Lila Garrett RN PROCEDURE PERFORMED Procedure(s) (LRB): [...] MD September 20, 2023 10:13 AM [facility] 06-15-2023 History of Presen t illness [...] findings. Additions if any: Charlotte Mane MD, [facility] Stretching Machine Tender Frame - [facility] documented in this encounter [facility] 06-15-2023 Instructions Jose Delong - 06/15/2023 1:40 [...] associated with corticosteroids. documented in this encounter [facility] 04-23-2023 History of Presen t illness Narrative [...] cleared for surgery. documented in this encounter [facility] 04-23-2023 Procedure note Associated Ord er(s): [place] LARYNGOSCOPY FLEXIBLE DIAGNOSTIC The flexible laryngoscope was used to evaluate the patient's upper airway. The base of the tongue and the larynx appeared to be within normal limits. The vocal cords are normal and they are moving symmetrical. [facility] 04-23-2023 Procedure note Associated Ord er(s): [place] LARYNGOSCOPY FLEXIBLE DIAGNOSTIC The flexible laryngoscope was used to evaluate the patient's upper airway. The base of the tongue and the larynx appeared to be within normal limits. The vocal cords are normal and they are moving symmetrical. documented in this encounter [facility] 04-20-2023 History of Presen t illness Narrative [...] Referrals: None Medications prescribed today: Supartz at [facility] Drug Follow up plan: Sports US Guided right sacroiliac joint injection with Supartz and HOMICIDE INVESTIGATOR Severity of problem(s): Mild Risk of morbidity [...] Referrals: None Medications prescribed today: Supartz at [facility] Drug Follow up plan: Sports US Guided right sacroiliac joint injection with Supartz and HOMICIDE INVESTIGATOR Severity of problem(s): Mild Risk of morbidity or complication from the condition and/or additional testing or treatment: Low I have reviewed, edited and added to the above note and agree with those findings. Additions if any: Charlotte Mane MD, [facility] Stretching Machine Tender Frame - [facility] documented in this encounter [facility] 04-20-2023 Instructions Jose Delong - 04/20/2023 9:40 [...] intermediate sized joints). documented in this encounter [facility] 03-20-2023 History of Presen t illness Narrative [...] findings. Additions if any: Charlotte Mane MD, [facility] Stretching Machine Tender Frame - [facility] documented in this encounter [facility] 03-20-2023 Instructions Jose Delong - 03/20/2023 1:40 [...] associated with corticosteroids. documented in this encounter [facility] Evaluation note No assessment inform ation available [facility] Work Phone: Evaluation note Diagnosis Spondylolisthesis, lumbar region [facility] Diagnosis Right knee pain, unspecified chronicity [facility] Diagnosis Bilateral hip pain Pain in joint, pelvic region and thigh [facility] Diagnosis Other cervical disc displacement, cervicothoracic region [facility] Diagnosis Osteoarthritis of both sacroiliac joints [facility] Diagnosis Osteoarthritis of both sacroiliac joints- Primary Osteoarthritis of both sacroiliac joints [facility] Diagnosis Hoarseness- Primary Dysphonia [facility] Diagnosis Osteoarthritis of both sacroiliac joints- Primary Pain of both sacroiliac joints Disorders of sacrum Spondylolisthesis of lumbar region Acquired spondylolisthesis Spinal stenosis, lumbar region, with neurogenic claudication Metatarsalgia of left foot Enthesopathy of ankle and tarsus, unspecified [facility] Diagnosis Osteoarthritis of both sacroiliac joints- Primary Pain of both sacroiliac joints Disorders of sacrum [facility] Diagnosis Elective surgery- Primary Unspecified elective surgery for purposes other than remedying health states documented in this encounter [facility] note* Diagnosis Spondylolisthesis of lumbar region Acquired spondylolisthesis [facility] Diagnosis Onset Date Resolution Status Admit Date Hernia noneactive April 06 1:23pm [facility] Work Phone: Reason for referral (narrative)* (Routine) Specialty Diagnoses / Procedures Referred By Valentina underwood Referred To Contact RENA PUENTE REV LOC [facility] [place] [address] Referral ID Status Reason Start Date Expiration Date Visits Re quested Visits Authorized [facility] for referral (narrative)No reason for referral [facility] Work Phone: Advance Directives No Advanced Directives Records Found Advance Directive Response Recorded Date/ Time Advance Directives No May 01 10:16am Living Will No September 20, 2 021 2:15pm Power of Internal Audit Manager No September 20, 2021 2:15pm Advance Directive Response Recorded Date/ Time Advance Directives No May 01 9:16am Living Will No September 20, 2 021 1:15pm Power of Internal Audit Manager No September 20, 2021 1:15pm Latest Code Status on File Code Status [...] Code 06/12/2019 12:27 PM 05/10/2023 6:22 PM Advance Directive Response Recorded Date/ Time Advance Directives No May 01 10:16am Chief Complaint and Reason for Visit Chief Complaint Other enthesopathy o f left foot and ankle Chief Complaint XRAY SPINE Chief Complaint Other cervical disc displacement, cervicothoracic Chief Complaint Admit Date Hernia April 06, 2025 1:23 pm Reason for Visit Admit Date Hernia April 06, 2025 1:23 pm Reason for Referral Specialty Diagnoses / Procedures Referred By Contac t Referred To Contact Diagnoses Spondylolisthesis, lumbar region Procedures MRI SPINE LUMBAR WITH AND WITHOUT CONTRAST [place] MRI, LUMBAR SPINE COMBO Julián Hill MD [facility] [place] [address] Referral ID Status Reason Start Date Expiration Date Visits Re quested Visits Authorized [id number] Closed 01/09/2023 02/03/2024 1 1 Specialty Diagnoses / Procedures Referred By Contac t Referred To Contact Diagnoses Other cervical disc displacement, cervicothoracic region Procedures CT SPINE CERVICAL WITHOUT CONTRAST [place] CT SCAN,CERVICAL SPINE,W/O CONTRAST Julián Hill MD [address] [place] [address] Referral ID Status Reason Start Date Expiration Date Visits Re quested Visits Authorized [id number] Closed 02/01/2023 02/26/2024 1 1 Specialty Diagnoses / Procedures Referred By Contac t Referred To Contact Diagnoses Osteoarthritis of both sacroiliac joints Procedures US IMAGING FOR ORTHO Charlotte Mane MD [address] [place] [id number] Referral ID Status Reason Start Date Expiration Date V isits Requested Visits Authorized [id number] New Request 03/20/2023 04/13/2024 1 1 Specialty Diagnoses / Procedures Referred By Contac t Referred To Contact Diagnoses Osteoarthritis of both sacroiliac joints Pain of both sacroiliac joints Spondylolisthesis of lumbar region Spinal stenosis, lumbar region, with neurogenic claudication Charlotte Mane MD [address] [facility] [place] [address] Referral ID Status Reason Start Date Expiration Date V isits Requested Visits Authorized [id number] Pending Review 1 1 Specialty Diagnoses / Procedures Referred By Contac t Referred To Contact Podiatry Diagnoses Metatarsalgia of left foot Charlotte Mane MD [address] [facility] [place] [address] [facility] [place], Other [address] [place] [address] Referral ID Status Reason Start Date Expiration Date V isits Requested Visits Authorized [id number] New Request 04/20/2023 05/14/2024 1 1 Specialty Diagnoses / Procedures Referred By Contac t Referred To Contact Diagnoses Osteoarthritis of both sacroiliac joints Pain of both sacroiliac joints Procedures US IMAGING FOR ORTHO Charlotte Mane MD [address] [facility] [place] [address] Referral ID Status Reason Start Date Expiration Date V isits Requested Visits Authorized [id number] New Request 06/15/2023 07/09/2024 1 1 Specialty Diagnoses / Procedures Referred By Contac t Referred To Contact Computerized Tomography Scan Diagnoses Spondylolisthesis of lumbar region Procedures CT SPINE LUMBAR WITH AND WITHOUT CONTRAST [place] CT SCAN LUMBAR SP Julián Mc MD [address] [facility] [address] [place] [address] [facility] [address] [place] [address] Referral ID Status Reason Start Date Expiration Date Visits Re quested Visits Authorized [id number] Closed 10/09/2023 11/02/2024 1 1 Summary Purpose Family History No Family History Records Found Relationship Condition Age at Onset Recorded Date/T rip Not Specified Cardiac disease Unknown Malignant neoplasm Unknown Hypertension Unknown Additional Source Comments Goals (unrecognized section and content) Goals may be documented in a n alternate sectionGoals may be documented in an alternate sectionGoals may be documented in an alternate sectionGoals may be documented in an alternate sectionGoals may be documented in an alternate sectionGoals may be documented in an alternate sectionGoals may be documented in an alternate sectionGoals may be documented in an alternate sectionGoals may be documented in an alternate sectionGoals may be documented in an alternate section Care Teams (unrecognized sec tion and content) Team Status: Active Member Role Status Dates Dr. Jewel Morel MD Family Provider Active Dr. Jewel Morel MD Primary Care Provider Active Team Status: Inactive Member Role Status Dates Dr. Jewel Morel MD Primary Care Provider Active Anne Ortiz DIGITAL MEDIA BUYER-C Attending Provider Active Team Status: Inactive Member Role Status Dates Dr. Jewel Morel MD Primary Care Provider, Attending Jeffery king Active Team Status: Inactive Member Role Status Dates Dr. Jewel Morel MD Primary Care Provider Active LIZ VOGT Attending Provider Active Malt Specifications Control Assistant Relationship Specialty Start Date End Date Jewel Morel MD [address] [place] [address] PCP - General Family Medicine 04/07/19 Malt Specifications Control Assistant Relationship Specialty Start Date End Date Jewel Morel MD [address] [place] [address] PCP - General Family Medicine 04/07/19 Malt Specifications Control Assistant Relationship Specialty Start Date End Date Jewel Morel MD [address] [place] [address] PCP - General Family Medicine 04/07/19 Malt Specifications Control Assistant Relationship Specialty Start Date End Date Jewel Morel MD [address] [place] [address] PCP - General Family Medicine 04/07/19 Malt Specifications Control Assistant Relationship Specialty Start Date End Date Jewel Morel MD [address] [place] [address] PCP - General Family Medicine 04/07/19 Malt Specifications Control Assistant Relationship Specialty Start Date End Date Jewel Morel MD [address] [place] [address] PCP - General Family Medicine 04/07/19 Malt Specifications Control Assistant Relationship Specialty Start Date End Date Jewel Morel MD [address] [place] [address] PCP - General Family Medicine 04/07/19 Malt Specifications Control Assistant Relationship Specialty Start Date End Date Jewel Morel MD [address] [place] [address] PCP - General Family Medicine 04/07/19 Malt Specifications Control Assistant Relationship Specialty Start Date End Date Jewel Morel MD [address] [place] [address] PCP - General Family Medicine 04/07/19 Team Status: Inactive Member Role Status Dates Dr. Jewel Morel MD Primary Care Provider Active LIZ VOGT Attending Provider, Referring Provider Ac tive Malt Specifications Control Assistant Relationship Specialty Start Date End Date Jewel Morel MD [address] [place] [address] PCP - General Family Medicine 04/07/19 Malt Specifications Control Assistant Relationship Specialty Start Date End Date Jewel Morel MD [address] [place] [address] PCP - General Family Medicine 04/07/19 Team Status: Inactive Member Role Status Dates Dr. Jewel Morel MD Primary Care Provide r, Attending Provider, Referring Provider Active Team Status: Inactive Member Role Status Dates Dr. Jewel Morel MD Primary Care Provider Active Dr. Juan Shultz MD Attending Provider, Referr ing Provider Active Team Status: Inactive Member Role Status Dates Dr. Jewel Morel MD Primary Care Provider Active Start: April 06, 2025 End: April 06, 2025 Dr. Jewel Morel MD Referring Provider Active St art: April 06, 2025 End: April 06, 2025 Dr. Cherry Hall MD Attending Provider Active Start: April 06, 2025 End: April 06, 2025 Reason for Visit (unrecogniz ed section and content) Specialty Diagnoses / Procedures Referred By Contac t Referred To Contact Diagnoses Spondylolisthesis, lumbar region Procedures MRI SPINE LUMBAR WITH AND WITHOUT CONTRAST [place] MRI, LUMBAR SPINE COMBO Julián Hill MD [address] [place] [address] Referral ID Status Reason Start Date Expiration Date Visits Re quested Visits Authorized [id number] Closed 01/09/2023 02/03/2024 1 1 Specialty Diagnoses / Procedures Referred By Contac t Referred To Contact Diagnoses Other cervical disc displacement, cervicothoracic region Procedures CT SPINE CERVICAL WITHOUT CONTRAST [place] CT SCAN,CERVICAL SPINE,W/O CONTRAST Julián Hill MD [address] [place] [address] Referral ID Status Reason Start Date Expiration Date Visits Re quested Visits Authorized [id number] Closed 02/01/2023 02/26/2024 1 1 Specialty Diagnoses / Procedures Referred By Contac t Referred To Contact Diagnoses Osteoarthritis of both sacroiliac joints Procedures US IMAGING FOR ORTHO Charlotte Mane MD [address] [place] [address] [place] [address] Referral ID Status Reason Start Date Expiration Date V isits Requested Visits Authorized [id number] New Request 03/20/2023 04/13/2024 1 1 Reason Comments Pain Right Sacroiliac Sade nt Follow-up Right Sacroiliac Sade nt Joint Injection Right Sacroiliac Sade nt Reason Comments New Patient Vocal cord assessmen t Specialty Diagnoses / Procedures Referred By Contac t Referred To Contact Diagnoses Other cervical disc displacement, cervicothoracic region Julián Hill MD [address] [address] Vinnie Gruber MD [address] [place] [id number] Referral ID Status Reason Start Date Expiration Date Visits Re quested Visits Authorized [id number] Closed 02/28/2023 03/24/2024 1 1 Reason Comments Pain Follow-up Reason Comments Pain Follow-up Joint Injection Specialty Diagnoses / Procedures Referred By Contac t Referred To Contact Diagnoses Sacroiliitis Sacroiliitis [M46.1] Procedures MN ARTHRODESIS SACROILIAC JOINT PERCUTANEOUS CHG FLUOROSCOPY UP TO 1 HOUR PHYSICIAN/QHP TIME MN IMPLANT/INSERT DEVICE, NOC PROSTHETIC IMPLANT NOS ARTHRODESIS SACROILIAC JOINT MINIMALLY INVASIVE W/ TRANSFIXING DEVICE FLUOROSCOPY IN OR Julián Hill MD [facility] [place] [address] Referral ID Status Reason Start Date Expiration Date Visits Re quested Visits Authorized [id number] 09/12/2023 1 1 Specialty Diagnoses / Procedures Referred By Contac t Referred To Contact Computerized Tomography Scan Diagnoses Spondylolisthesis of lumbar region Procedures CT SPINE LUMBAR WITH AND WITHOUT CONTRAST [place] CT SCAN LUMBAR SP COMBO Julián Hill MD [address] [place] [address] [place] [address] Referral ID Status Reason Start Date Expiration Date Visits Re quested Visits Authorized [id number] Closed 10/09/2023 11/02/2024 1 1 (unrecognized sect ion and content) No Status Records FoundNo Status Records FoundNo Status Records FoundNo Status Records Found INFORMATION SOURCE (unrecogn ized section and content) DATE CREATED AUTHOR 02/06/2023 [facility] DATE CREATED AUTHOR AUTHOR'S ORGANIZ ATION 06/16/2023 [facility] DATE CREATED AUTHOR AUTHOR'S ORGANIZ ATION 09/24/2023 [facility] DATE CREATED AUTHOR AUTHOR'S ORGANIZ ATION 06/02/2025 [facility] Scheduled Active and Recently Administ ered Medications (unrecognized section and content) Medication Order 09/18/2023 09/19/2023 09/20/2023 acetaminophen (OFIRMEV) IVPB 1,000 mg (COMPLETED) 1,000 mg, Intravenous, at 400 mL/hr, Administer over 15 Minutes, ONCE, 1 dose, On Misti 09/20/23 at 1245 1243 ($$New Bag$$ - Provider: Aspen Ayers, MELIDA)1258 (Stopped - Provider: Jazmin Valencia, RN) Continuous Medication Order 09/18/2023 09/19/2023 09/20/2023 Sodium chloride 0.9% IV solution Intravenous, at 100 mL/hr, CONTINUOUS, Starting on Misti 09/20/23 at 1200, Until Misti 09/20/23 at 1717, Convert IV to PRN adapter post op day 1 if PO intake >=300ml/shift, Post-op/Post-Proc 1345 (Stopped - Prov ider: Aspen Ayers RN) PRN Medication Order 09/18/2023 09/19/2023 09/20/2023 BUPivacaine-EPINEPHrine (MARCAINE;SENSORCAINE-MPF) 0.5% -[id number] injection (CANCELED) NEEDED, Starting on Misti 09/20/23 [...] 1312 (See Alternativ e - Provider: Jazmin Valencia, MELIDA) fentaNYL (SUBLIMAZE) injection 50 mcg(Linked Group 1) [...] BE BASED ON THE PRIMARY CLINICAL RECORDS. [employer] [facility]. provides no warranty or guarantee of the accuracy or completeness of information in this document.
--- NOTE | 2025-06-04 07:26 | HP.PCM_ITS ---
History and Physical Date of Admission: 06/04/25 Date of Service: 04/06/25 MR#: [id number] Acct: [id number] Name: ANGELA RODRIGUES Rep #: [id number] : 1950 Provider: Dr. Cherry Hall MD Age/Sex: 75/M Location: [facility] Status: Signed Intake Vital Signs 09/28/2110:17 04/06/2513:41 Height 5 ft 10 in 5 ft 10 in Weight: 228 lb BMI 32.7 BP 143/84 H Blood Pressure Location Rt brachial Position Sitting Respiration 16 Intake Visit Reasons: Hernia Chief Complaint: umbilical hernia Inspector Automatic Typewriter Required: No Is patient in pain?: No Allergies Corticosteroids (Glucocorticoids) Allergy (Verified 04/06/25 13:41) Otheroxycodone HCl (From Percocet) Allergy (Verified 04/06/25 13:41) Otherthimerosal Allergy (Verified 04/06/25 13:41) Otherazithromycin Adverse Reaction (Verified 04/06/25 13:41) Otherchlorhexidine Adverse Reaction (Verified 04/06/25 13:41) SKIN FELT LIKE IT WAS BURNINGclindamycin Adverse Reaction (Verified 04/06/25 13:41) Othercodeine Adverse Reaction (Verified 04/06/25 13:41) Othererythromycin base (Erythromycin Base) Adverse Reaction (Verified 04/06/25 13:41) Othergabapentin (From Neurontin) Adverse Reaction (Verified 04/06/25 13:41) Othernaproxen Adverse Reaction (Verified 04/06/25 13:41) Othersulfamethoxazole (From Septra) Adverse Reaction (Verified 04/06/25 13:41) Othertrimethoprim (From Septra) Adverse Reaction (Verified 04/06/25 13:41) Other Medications ?Medication ?Instructions ?Recorded ?Confirmed ?Type amlodipine 5 mg tablet 5 mg PO DAILY 06/18/19 04/06/25 History cholecalciferol (vitamin D3) 50 5,000 unit PO DAILY 06/18/19 04/06/25 Hi story mcg (2,000 unit) capsule coenzyme Q10 100 mg capsule 200 mg PO DAILY 06/18/19 04/06/25 Histor y losartan 100 mg tablet 100 mg PO QHS 06/18/19 04/06/25 History omeprazole magnesium 20 mg 20 mg PO DAILY 06/18/19 04/06/25 History tablet,delayed release potassium citrate (bulk) 100 % 1,080 mg miscellaneous QHS 06/18/1903/22 History granules tamsulosin 0.4 mg capsule (Flomax) 0.4 mg PO QHS 09/20/21 04/06/25 History dutasteride 0.5 mg capsule 0.5 mg PO DAILY 05/22/24 05/22/24 Histor y (Avodart) Have you fallen in the past year?: No PFSH Medical History (Updated 04/08/25 @ 08:[address] Cherry Hall MD) Wears glasses Wears partial dentures Wears dentures Cancer Arthritis Bladder disease Back pain Headache Injury of head and neck History of IBS Gastric reflux Former smoker CPAP (continuous positive airway pressure) dependence Leg cramps History of pain when walking History of edema History of stress test Hypertension Surgical History (Updated 04/06/25 @ 13:43 by Cassi Orantes) History of back surgery (~08/2023) H/O neck surgery (~2021) Hx of cervical discectomy Hx of transurethral destruction of bladder lesion History of cystoscopy Hx of nasal septoplasty Hx of lumbar discectomy Family History Other Cancer Heart disease Hypertension Social History Smoking Status: Former smoker HPI HPI HPI: 75-year-old male presents with his due to umbilical hernia. Patient states that he knew about it since 2013. However about a week ago when trimming a tree did hit that area with a branch and has been tender since. Patient also admits to some tenderness at the area when riding his lawnmower. With umbilical hernia is reducible. And soft. ROS General General: No weight change, appetite, fatigue, colon cancer or breast cancer HEENT HEENT: No difficulty swallowing, eye injury, eye surgery, swollen glands or hoarseness Endo Endocrine: No thyroid disease, diabetes mellitus, thyroid cancer, Hair loss, heat intolerance or cold intolerance Skin Skin: Yes rash; No changing moles Musc Musculoskeletal: Yes back problems and arthritis; No rheumatoid arthritis, gout or joint pain Cardio Cardiovascular: Yes high blood pressure; No murmur, pacemaker, heart disease, atrial fibrillation, heart attack, heart stent, palpitations, shortness of breath with exertion or chest pain Psych Psychiatric: No depression, anxiety or hearing voices Resp Respiratory: No shortness of breath, Yes sleep apnea, No cough, No COPD, No asthma, No emphysema and No wheezing Gastro Gastrointestinal: Yes abdominal pain, No nausea or vomiting, No diarrhea, No constipation, No blood in stool, Yes acid reflux, No hemorrhoids, No ulcers, No gallbladder problem and No black,tarry stools Edgard Hematologic: No blood thinners, No blood disorders, No bleeding, No anemia and No blood clots Neuro Neurologic: Yes numbness and Yes tingling Exam Const General: cooperative, healthy appearing, comfortable and no acute distress HENMT Head: normocephalic and atraumatic Neck Neck: supple Resp Effort & Inspection: normal respiratory effort Cardio Rate: regular rate GI Inspection: non-distended Palpation: soft, hernia umbilical (Reducible) and nontender Skin General: no rashes or lesions noted Neuro General: CN's II-XI intact bilaterally Extrem General: normal to inspection Psych Mental Status: mental status grossly normal Attitude: cooperative Assessment and Plan Assessment and Plan (1) Hernia: (2) Umbilical hernia without obstruction and without gangrene: Status: Acute Plan Plan to do an open umbilical repair with mesh. Reviewed the procedure with the patient including the risks, including but not limited to infection, bleeding, injury to the small bowel, and recurrence. All questions were answered. Cherry Hall M.D. Pager: [phone] [facility] [address] [place] [address], [address] [place] [address] Office: [phone] Coding Level of Care Code Off vis,new,level 3 Diagnoses Hernia K46.9 Umbilical hernia without obstruction and without gangrene K42.9 Clinical Quality Measures Falls Risk Screening/Assistive Devices Have you fallen in the past year?: No 04/08/25 0824 <Electronically signed by Cherry Hall MD> Date Cherry Hall MD
--- NOTE | 2025-06-04 07:35 | PCM.PRE.AN2 ---
ASA Classification* ASA Classification ASA Classification: 3 Assessment & Plan Anesthesia* Anesthesia Assessment Anesthesia Assessment: Discussed sedation and/or anesthesia options, risks, benefits, and alternatives with patient/parents/legal guardian/POA. Questions invited. The patient/parents/legal guardian/POA seems to understand and agrees to proceed with anesthesia plan. Reviewed the physical assessment, medical history, allergy history and patient home medications list prior to surgery/procedure/anesthetic and documented any changes. Performed airway and anesthesia risk assessments. Anesthesia Type Anesthesia Type: General History Source History Obtained from:: Patient and Chart Anesthesia Focused Assessment* Temperature: 97.2 F Pulse Rate: 70 Blood Pressure: 140/82 Respiratory Rate: 18 Pulse Ox: 99 Airway Assessment Mouth opens: >3 cm Mallampati Score: II Labs Anesthesia Preop lab: CBC WBC 8.7 K/mm3 (4.4-11.0) 05/26/25 09:05/26/25 RBC 4.84 M/mm3 (4.6-6.2) 05/26/25 09:05/26/25 Hgb 14.2 g/dL (13.0-16.5) 05/26/25 09:05/26/25 Hct 42.5 % (40-54) 05/26/25 09:27 05/26/25 Plt Count 320 K/mm3 (150-450) 05/26/25 09:27 05/26/25 CHEMISTRY Potassium 3.9 mmol/L (3.3-5.1) 05/26/25 09:27 05/26/25 Sodium 138 mmol/L (133-145) 05/26/25 09:05/26/25 Magnesium 1.9 mg/dL (1.8-2.4) 10/28/16 07:53 10/28/16 BUN 24 mg/dL (4-19) H 05/26/25 09:27 05/26/25 Creatinine 0.86 mg/dL (0.70-1.20) 05/26/25 09:27 05/26/25 Glucose 116 mg/dL (70-99) H 05/26/25 09:27 05/26/25 TSH 1.52 uIU/mL (0.358-3.74) 02/26/24 15:40 02/26/24 COAG PT 13.4 SECONDS (11.7-14.9) 05/26/25 09:27 05/26/25 Pre-Assessment Diagnosis/Proposed Procedure Planned Operative Procedure(s): (N/A) Hernia, Umbilical Repair w/ Mesh, Open Anesthesia History 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 When Was Last Pacemaker Check QUESTION #4 FULL TEXT: You/Your Family Experience fever (hyperthermia) with Anesthesia Last Oral Intake Last Oral intake: Last Oral Intake NPO since 22:30 06/04/25 06:32 Meds taken in AM with sips of Yes 06/04/25 06:32 water? Meds patient instructed to lisinopril, prilosec 06/04/25 06:32 take am of surgery Any additional information?: No PONV PONV - computer systems hardware analyst: PONV - computer systems hardware analyst Female No 05/25/25 13:11 HX of Motion Sickness Yes 05/25/25 13:11 HX of N/V After Surgery Yes 05/25/25 13:11 Non-Smoker Yes 05/25/25 13:11 Duration of Surgery greater Yes 05/25/25 13:11 than 60 minutes Number of Risk Factors 4 05/25/25 13:11 PONV Score Severe Risk 05/25/25 13:11 Any additional information?: Yes Female: No HX of Motion Sickness: No HX of N/V After Surgery: Yes Non-Smoker: Yes Duration of Surgery greater than 60 minutes: Yes Number of Risk Factors: 3 PONV Score: Moderate Risk Height & Weight Height & Weight: Anesthesia: Height & Weight Height 5 ft 10 in 06/04/25 06:32 Weight: 102 kg 06/04/25 06:32 Body Mass Index (BMI) 32.2 06/04/25 06:32 Respiratory Assessment Respiratory Assessment - computer systems hardware analyst: Respiratory Tract Infection Hx - computer systems hardware analyst Hx Respiratory Tract Infection No 05/25/25 13:11 Any additional information?: No STOP Sleep Apnea STOP Sleep Apnea - computer systems hardware analyst: STOP Sleep Apnea - computer systems hardware analyst Hx Hypertension Yes: PER PT, CONTROLLED ON 05/25/25 13:11 MEDS Hx Sleep Apnea Yes: NO MACHINE 05/25/25 13:11 CPAP No 05/25/25 13:11 BIPAP No 05/25/25 13:11 Do you snore loudly (louder than talking or can be heard Do you often feel tired/ fatigued/ sleepy during daytime? Has anyone observed you stop breathing during sleep? STOP Results Positive 05/25/25 13:11 QUESTION #5 FULL TEXT : Do you snore loudly (louder than talking or can be heard through closed doors)? Tobacco Use History Tobacco Use History - computer systems hardware analyst: Tobacco Use History - computer systems hardware analyst Tobacco Use Smoking Status Former smoker 05/25/25 13:11 Hx Tobacco Use No 05/25/25 13:11 Years Smoking Packs Smoked per Day Smoking Cessation Date was No - quit smoking greater 05/25/25 13:11 within the last 15 years than 15 years ago Hx Smoking Cessation Date 03/31/10 05/25/25 13:11 Hx Smoking Cessation No 05/25/25 13:11 Counseling Hematologic Medial History Hematologic Hx - computer systems hardware analyst: Hematologic Medical Hx - transverse abdominal muscle nurse Hx of Blood Transfusion No 05/25/25 13:11 Hx of Transfusion in last 3 No 05/25/25 13:11 Months Date of Last Transfusion (if within last 3 months) Ever experience any problems No 05/25/25 13:11 with transfusion(s)? Specify any problems Hx of Preganancy in last 3 N/A 05/25/25 13:11 Months Nurse Filling Out Transfusion MGRIFFITH 05/25/25 13:11 & Questions: Date: 05/25/25 05/25/25 13:11 Time: 13:14 05/25/25 13:11 Patient unable to answer at this time (ie. confused, unrespo /Reproduction History /Reproductive History - computer systems hardware analyst: /Reproductive Hx- computer systems hardware analyst Hx Now Gestational Age (in weeks): EDC: Hx Hx Para Hx Section SAB No 09/20/21 13:15 Active Medications Active Medications: Current Medications Generic Name Dose Route Start Last Admin Trade Name Cristal PRN Reason Stop Dose Admin Cefazolin Sodium 2 gm/ Sodium 110 mls @ 200 mls/hr 06/04/25 07:30 Chloride IV 06/04/25 08:02 INTRAOP ONE Lactated Ringer's 1,000 mls @ 15 mls/hr 06/04/25 06:15 IV .Q[facility]H [facility] Medical History (Updated 05/25/25 @ 13:24 by Carie Garcia) History of steroid therapy Ambulates with cane Prostate disease Easy bruising Restless legs PONV (postoperative nausea and vomiting) Sleep apnea Wears glasses Wears partial dentures Wears dentures Cancer Arthritis Bladder disease Back pain Headache Injury of head and neck History of IBS Gastric reflux Former smoker CPAP (continuous positive airway pressure) dependence Leg cramps History of pain when walking History of edema History of stress test Hypertension Home Medications ?Medication ?Instructions ?Recorded ?Last Taken ?Type amlodipine 5 mg tablet 5 mg PO DAILY 06/18/19 06/04/25 History cholecalciferol (vitamin D3) 50 5,000 unit PO DAILY 06/18/19 05/29/25 History mcg (2,000 unit) capsule coenzyme Q10 100 mg capsule 200 mg PO DAILY 06/18/19 05/29/25 History losartan 100 mg tablet 100 mg PO QHS 06/18/19 06/03/25 History omeprazole magnesium 20 mg 20 mg PO DAILY 06/18/19 06/04/25 History tablet,delayed release potassium citrate (bulk) 100 % 1,080 mg miscellaneous QHS 06/18/19 06/03/25 History granules tamsulosin 0.4 mg capsule (Flomax) 0.4 mg PO QHS 09/20/21 06/03/25 History gabapentin 600 mg tablet 600 mg PO QHS PRN pain 05/25/25 06/03/25 History methylprednisolone 4 mg tablet 4 mg PO DAILY 05/25/25 06/01/25 History tramadol 50 mg tablet 50 mg PO Q6H PRN pain #7 tabs 06/04/25 Unknown Rx Allergy/AdvReac Type Severity Reaction Status Date / Time Corticosteroids Allergy Other Verified 05/25/25 13:04 (Glucocorticoids) oxycodone HCl (From Percocet) Allergy Other Verified 05/25/25 13:04 thimerosal Allergy Other Verified 05/25/25 13:04 azithromycin AdvReac Other Verified 05/25/25 13:04 chlorhexidine AdvReac SKIN FELT Verified 05/25/25 13:04 LIKE IT WAS BURNING clindamycin AdvReac Other Verified 05/25/25 13:04 codeine AdvReac Other Verified 05/25/25 13:04 erythromycin base AdvReac Other Verified 05/25/25 13:04 (Erythromycin Base) naproxen AdvReac Other Verified 05/25/25 13:04 sulfamethoxazole (From AdvReac Other Verified 05/25/25 13:04 Septra) trimethoprim (From Septra) AdvReac Other Verified 05/25/25 13:04 Family History Other Cancer Heart disease Hypertension Surgical History (Updated 05/25/25 @ 13:11 by Carie Garcia) History of esophagogastroduodenoscopy (EGD) History of colonoscopy History of back surgery (~08/2023) H/O neck surgery (~2021) Hx of cervical discectomy Hx of transurethral destruction of bladder lesion History of cystoscopy Hx of nasal septoplasty Hx of lumbar discectomy Social History Smoking Status: Former smoker Review of Systems (Anesthesia) ROS Narrative System reviewed and no additional complaints, except as documented. Physical Exam Const oriented x3 Orientation / Consciousness: awake HEENT Negative for dentition normal HEENT Narrative: upper dentures, lower partial , lower teeth intact
[2025-06-04] MEDS: Lactated Ringers 1,000 ML 15 ML IV ×2 (07:36→09:26)
[2025-06-04] MEDS: Lactated Ringers 1,000 ML 1000 ML IV (07:39)
[2025-06-04] MEDS: Cefazolin 1 GM/5 ML Vial 2 GM IV (07:40)
[2025-06-04] MEDS: fentaNYL 100 MCG/2 ML Ampul 50 MCG IV (07:40)
[2025-06-04] MEDS: Lidocaine 1% (5 ml sdv) 5 ML Vial IV (07:45)
--- NOTE | 2025-06-04 08:17 | OP.PCM_ITS ---
Operative Report (Standard) Operative Information Date of Procedure: 06/04/25 Pre-Operative Diagnosis: Umbilical hernia Post-Operative Diagnosis: Same Surgery/Procedure Performed: Umbilical hernia pair with mesh sinter press operator: Yes Electrical Technology Instructor: Sachi Casillas Tasks completed by certified first assistant: Opening & closing and Retracting Type of Anesthesia: General/Supplemental RN Documented Start/Stop Times: Operation Date: 06/04/25 07:30 Case Time Into Pre-Op 06/04/25 06:02 Out of Pre-Op 06/04/25 07:32 Anesthesia Start 06/04/25 07:39 Into Room 06/04/25 07:39 Procedure Start 06/04/25 07:53 Procedure End 06/04/25 08:22 Anesthesia End 06/04/25 08:26 Out of Room 06/04/25 08:26 Into Recovery 06/04/25 08:30 Procedure Start Time: 07:53 Procedure Stop Time: 08:22 Select all DRAINS/GRAFTS/IMPLANTS that apply: Prosthetic device Prosthetic device details: Ventralex ST hernia patch 4.3 cm LOT [id number] Special Medications: Ancef 2 g IV x 1 Estimated Blood Loss: <10 cc Specimen collected: No Description of surgery: Patient was brought into the room placed supine on the operating table. Correct patient, procedure, site, positioning, special, was verified prior to procedure. General anesthesia was induced. The abdomen was prepped draped in usual sterile fashion. A curvilinear incision was made below the umbilicus with a 15 blade scalpel. This was deepened with electrocautery. A hemostat was used to go around the stalk of the umbilicus and Metzenbaum scissors was used to carefully divide the hernia sac from the skin of the umbilicus. The fascia around the hernia defect was cleared and the hernia defect measured 1 x 1.2 cm. A small Ventralex ST hernia patch was used and secured laterally at the tails with 0 Nurolon mattress sutures. 0 Nurolon suture was placed to close the fascia in a [id number] including the mesh inferiorly and superiorly. The wound was irrigated with saline. Hemostasis was assured. The skin of the umbilicus was secured to the fascia using 3-0 Vicryl suture interrupted. The incision was closed with 3-0 Vicryl subdermal interrupted sutures and the skin was closed with interrupted 4-0 Monocryl sutures. Steri- Strips and Tegaderm and OpSite were placed over the incision once sterile cotton balls were placed in the umbilicus. Patient was extubated. Patient tolerated procedure well and was taken to the postanesthesia care unit in stable condition. Surgical Findings: See operative report Complications Complications: No
--- NOTE | 2025-06-04 08:19 | EX.PCM.DISCH ---
Discharge Instructions Diet Discharge Diet: Light diet - advance as tolerated Activity May shower in (days): 5 (Keep umbilical dressing clean dry and intact for 5 days. Okay to tape off with a Ziploc bag to shower. Or lower shower and upper sponge bath.) Lifting Restrictions: no lifting >20 lbs x 2 wks, no strenuous exercise for 4 wks Additional Activity Instructions:: - Dressing / Incision Call your doctor if your incision/area has: Continuous Slow Oozing, Sudden Increased Bleeding, Increased Pain/ Swelling, Increased Redness, Foul Smelling Discharge and Swelling at the incision site Call your doctor if you observe: Fever of 101 or Higher Remove Dressing in: 5 days (After 5 days okay to remove surgical dressing. Place cotton ball or rolled up gauze in bellybutton and retape daily for 2 more days.) Cleanse incision/area with: Do not get Incision Wet (for 5 days) Additional Dressing/Incision Instructions:: Steri-Strips will fall off in 7 to 10 days, if they do not fall off okay to remove after 10 days. Follow Up Care Please Follow Up With: Cherry Hall MD When: Call the office for a follow-up appointment 2 weeks; after 5 PM and on the weekends call [phone] with any concerns. Test Results: Test results from this visit will be discussed in further detail at your follow-up appointment, if applicable. Discharge Plan Admission Attending Provider: Cherry Hall Primary Care Provider: Bereket Morel Instructions Additional Instructions / Restrictions: Okay to take ibuprofen 400-600 mg PO q6hr PRN and Tylenol 650 to 1000 mg p.o. every 6 hours as needed along with the tramadol. Take all pain meds with food. Tramadol can cause constipation recommend taking daily stool softener (i.e. Colace/docusate) while taking the pain meds. Recommend starting some MiraLAX today, take additional MiraLAX tomorrow if no bowel movement. If still no bowel movement the following day recommend taking additional MiraLAX versus magnesium citrate half the bottle and waiting 4-6 hours if still no results take the other half the bottle. Print Language: Algerian Discharge Orders/Prescriptions Prescriptions: New tramadol 50 mg tablet 50 mg PO Q6H PRN (Reason: pain) Qty: 7 0RF Continued amlodipine 5 MG tablet 5 mg PO DAILY potassium citrate (bulk) 500 GM granules 1,080 mg miscellaneous QHS losartan 100 MG tablet 100 mg PO QHS coenzyme Q10 100 MG capsule 200 mg PO DAILY omeprazole magnesium 20 MG tablet,delayed release (DR/EC) 20 mg PO DAILY cholecalciferol (vitamin D3) 2,000 UNIT capsule 5,000 unit PO DAILY tamsulosin [Flomax] 0.4 mg Capsule 0.4 mg PO QHS gabapentin 600 mg tablet 600 mg PO QHS PRN (Reason: pain) methylprednisolone 4 mg tablet 4 mg PO DAILY Other Ambulatory Orders: 12 Lead EKG (Routine) Timeframe: 20250526 Location: None Selected Ordered By: Dr. Anthony Ziegler Referrals / Follow Up: Bereket Morel MD [Primary Care Provider] - Disposition Disposition (needs filled in before D/C Order can be placed): Home, Self Care
--- NOTE | 2025-06-04 08:33 | PCM.POST.ANE ---
Anesthesia: Postop Eval I Current Vital Signs Temperature: 97.3 F Pulse Rate: 71 Blood Pressure: 119/70 Respiratory Rate: 14 Pulse Ox: 98 Oxygen Delivery Method: Room Air Assessment Airway patent: Yes Spontaneous unlabored respirations: Yes Mental status: Awake nausea: No Vomiting: No Anesthesia Complication: No Fluid Hydration Crystalloid volume administer (ml): 800 Total IV fluid infused: 800 Progress Note Anesthesia document: Postop Eval 1 completed: Yes
--- NOTE | 2025-06-04 19:33 | POSTOPAN2_ITS ---
Anesthesia Postop Eval I Sum Postop Eval Completion status Anesthesia document: Postop Eval 1 completed: Yes Anesthesia Postop Eval I Summary Anesthesia Postop Eval I Summary: Anesthesia Postop Eval I: Assessment Summary Airway patent Yes 06/04/25 08:34 MEDICAL CARE EVALUATION SPECIALIST.HBARR Spontaneous unlabored Yes 06/04/25 08:34 MEDICAL CARE EVALUATION SPECIALIST.HBARR respirations Mental status Awake 06/04/25 08:34 MEDICAL CARE EVALUATION SPECIALIST.HBARR nausea No 06/04/25 08:34 MEDICAL CARE EVALUATION SPECIALIST.HBARR Vomiting No 06/04/25 08:34 MEDICAL CARE EVALUATION SPECIALIST.HBARR Anesthesia Postop Eval I: Fluid Summary Crystalloid volume administer 800 06/04/25 08:34 MEDICAL CARE EVALUATION SPECIALIST.HBARR (ml) Colloids volume administered ( ml) Blood Product volume administered (ml) Total IV fluid infused 800 06/04/25 08:34 MEDICAL CARE EVALUATION SPECIALIST.HBARR Anesthesia Postop Eval I: Summary Notes Anesthesia Complication No 06/04/25 08:34 MEDICAL CARE EVALUATION SPECIALIST.HBARR Anesthesia Complication Comment: Post-operative progress note Anesthesia: Postop Eval II Evaluation Mental status: Awake and Calm Pain Level: 1 nausea: No Vomiting: No Complications Anesthesia Complication: No
--- NOTE | 2025-06-04 19:33 | PCM.POSTANE2 ---
Anesthesia Postop Eval I Sum Postop Eval Completion status Anesthesia document: Postop Eval 1 completed: Yes Anesthesia Postop Eval I Summary Anesthesia Postop Eval I Summary: Anesthesia Postop Eval I: Assessment Summary Airway patent Yes 06/04/25 08:34 BAIL BONDING AGENT.HBARR Spontaneous unlabored Yes 06/04/25 08:34 BAIL BONDING AGENT.HBARR respirations Mental status Awake 06/04/25 08:34 BAIL BONDING AGENT.HBARR nausea No 06/04/25 08:34 BAIL BONDING AGENT.HBARR Vomiting No 06/04/25 08:34 BAIL BONDING AGENT.HBARR Anesthesia Postop Eval I: Fluid Summary Crystalloid volume administer 800 06/04/25 08:34 BAIL BONDING AGENT.HBARR (ml) Colloids volume administered ( ml) Blood Product volume administered (ml) Total IV fluid infused 800 06/04/25 08:34 BAIL BONDING AGENT.HBARR Anesthesia Postop Eval I: Summary Notes Anesthesia Complication No 06/04/25 08:34 BAIL BONDING AGENT.HBARR Anesthesia Complication Comment: Post-operative progress note Anesthesia: Postop Eval II Evaluation Mental status: Awake and Calm Pain Level: 1 nausea: No Vomiting: No Complications Anesthesia Complication: No
== END 2025-06-04 11:06 | disposition home or self-care (01) ==
LOC: SDC 05:57 → AC 05:57
PROVIDERS: Anesthesiology; PCP Family Medicine; Referring Provider Surgery; Visit Provider Surgery
PROC: (CPT 49591; principal; 2025-06-04 07:15)
DX: K42.9 Umbilical hernia without obstruction or gangrene (principal); Z87.891 Personal history of nicotine dependence; I10 Essential (primary) hypertension; K21.9 Gastro-esophageal reflux disease without esophagitis; Z79.899 Other long term (current) drug therapy
CPT/HCPCS: 49591; 00830; 36415; 80048; 80076; 85027; 85610; 85730; 93005; C1781; J2405